=== PATIENT | male | born 1940 | race Caucasian/White ===

== ENCOUNTER 2018-08-20 20:15 | Emergency (ER) | payer MEDICARE, SELFPAY ==
[2018-08-20 20:16] VITALS: BP 160/78; PULSE 911; RESP 16; TEMP 36.7; O2SAT 95; BMI 23.8
--- NOTE | 2018-08-20 20:25 | RAD_ITS ---
STUDY: X-RAY CHEST REASON FOR EXAM: Male, 78 years old. Chest pain. TECHNIQUE: Portable chest. COMPARISON: 03/08/2014. FINDINGS: The lungs are clear and expanded. There is no demonstrated pleural abnormality. Normal size heart. Normal mediastinum and brown. Normal visualized pulmonary arteries. Normal visualized aortic arch and descending thoracic aorta. Reverse right shoulder arthroplasty. Degenerative thoracic spondylosis. Bony structures are otherwise unremarkable. RAD/Chest 1 View (Portable) IMPRESSION: No acute findings. Electronically Signed: Maria C Caro MD at 20:59 EDT Tel , Service support ,
--- NOTE | 2018-08-20 20:25 | EKG12_ITS ---
Test Reason : CP Blood Pressure : / mmHG Vent. Rate : 082 BPM Atrial Rate : 082 BPM P-R Int : 200 ms QRS Dur : 162 ms QT Int : 428 ms P-R-T Axes : 056 -56 044 degrees QTc Int : 500 ms Sinus rhythm with frequent Premature ventricular complexes Right bundle branch block Left anterior fascicular block Bifascicular block Abnormal ECG Confirmed by ZACK MCCARTY, KISHAN ([id number]), supervising editor news reel ALLYN LERMA ([id number]) on 08/24/2018 11:48:43 AM Referred By: Confirmed By:WILDER DIXON MD
--- NOTE | 2018-08-20 20:29 | ED.VISSUMM ---
- ER Visit Summary Date of Service: 08/20/18 Chief Complaint: Chest pain, shortness of breath History of Present Illness: The patient is a 78 M presents to the emergency department chest pain shortness of breath. Patient has a history of aortic valve regurgitation. He did follow with Dr. Faustin, but since his [place] [facility] he has an appointment with a new dot compliance coordinator. He states for the past few months, his dyspnea is been getting worse. He states is been worse on exertion. He denies orthopnea. He denies weight gain. He denies any leg swelling. He states that for the past 24 hours, he had some left-sided chest heaviness. It does not come and go. It does not radiate. He was concerned because he is never really had pain like this before. He had called his dot compliance coordinator about his dyspnea on a had moved up his echo, but with his pain he was referred into the emergency department. Physical Examination: Vital signs reviewed General: Well-nourished, well-developed Head: Normocephalic, atraumatic Eyes: Pupils equal and reactive, extraocular muscles intact Neck, supple, no lymphadenopathy Heart: Regular rate and rhythm Respiratory: No distress, clear bilaterally Abdomen: Soft, nontender, nondistended, no peritoneal signs Back: Nontender Extremities: Nontender, no edema, no cords Skin: Normal color no rash Neuro: Alert and oriented, no focal or lateralizing deficits Test Results: [] Emergency Department Course and Treatment: EKG was obtained on patient arrival. He does have a bifascicular block. It was changed from 2014. He has had constant pain for the past 18 hours. It does not radiate. It is reproducible. Chest x-ray was unremarkable. There is no evidence of volume overload. Cardiac enzymes are normal. The patient was sitting, he stated that he just remembered that yesterday, his garage melter helper had broken. He had left and lower the heavy wooden door by hand. He thinks that this may be muscular. I was able to obtain a recent EKG from the [facility] system. His bifascicular block is unchanged. The patient has no history of coronary vascular disease. He does have valvular disease which I do feel likely causes his dyspnea but this is been going on for the past 6 months. The patient wants to attempt outpatient therapy. I feel that this is reasonable. He has reproducible chest pain, and unchanged EKG, constant pain with a negative cardiac enzyme, no history of coronary vascular disease. He is also had a recent negative stress test. Patient was counseled concerning symptoms and reasons to return. He will be discharged home. Treatment Plan: [] Disposition: Discharge Impression: 1. Chest pain This note was generated with [employer] dictation software. It may contain incorrect words, spelling, and punctuation that were not noted in review of the chart prior to signing ED Disposition - Plan for ED Patient: Instructions: CHEST PAIN, Uncertain Cause Referrals: Anthony Wakefield MD [Primary Care Provider] -
[2018-08-20 20:39] VITALS: O2SAT 95
[2018-08-20 20:50] LABS: Absolute Lymphocyte Count 1.96 X10^3/ul (0.83-4.51); Absolute Neutrophil Count 4.8 X10^3/uL (2.0-7.7); Basophil# 0.01 X10^3/uL; Basophil% 0.1 % (0-1); Eosinophil# 0.13 X10^3/uL; Eosinophils% 1.7 % (0-5); Hematocrit 40.8 % (40-54); Hemoglobin 13.7 g/dl (13.0-16.5); Lymphocyte # 1.96 X10^3/ul (4.0); Lymphocyte % 26.2 % (19-41); Mean Corp Hgb Conc 33.6 g/gl (32-36); Mean Corpuscular Hgb 31.2 pg (27.0-32.0); Mean Corpuscular Volume 92.9 fL (80-94); Mean Platelet Vol. 9.9 fl (6.2-12.0); Monocyte# 0.59 X10^3/uL; Monocyte% 7.9 % (0-10); Neutrophil # 4.78 X10^3/uL (2.7-7.7); Neutrophil % 64.1 % (47-70); Platelet Count 215 K/mm3 (150-450); RBC Distribution Width CV 13.2 % (11.6-14.6); Red Blood Count 4.39 M/mm3 (4.6-6.2); White Blood Count 7.5 K/mm3 (4.4-11.0)
[2018-08-20] MEDS: Aspirin 81 MG TAB.CHEW 324 MG PO (20:50)
[2018-08-20 20:51] LABS: POSITIVE COUNT NO; POSITIVE DIFFERENTIAL NO; POSITIVE MORPHOLOGY NO
[2018-08-20 21:15] LABS: Anion Gap 4 (5-15); BUN 16 mg/dL (7-18); BUN/Creat Ratio 20.7 RATIO (10-20); Calcium,Total 8.5 mg/dL (8.5-10.1); Chloride 108 mmol/L (98-107); Creatinine, Serum 0.77 mg/dL (0.70-1.30); EST Glomerular Filtration Rate 103 mL/min (>60); Est Glom Filt Rate - Afr Amer 125 mL/min (>60); Estimated Creatinine Clearance 66.82 ml/min; Glucose 97 mg/dL (74-106); Magnesium 2.2 mg/dL (1.6-2.6); Potassium 3.7 mmol/L (3.5-5.1); Sodium Level 138 mmol/L (136-145)
[2018-08-20 21:31] VITALS: BP 153/69; PULSE 84; RESP 21; O2SAT 93
== END 2018-08-20 21:44 | disposition home or self-care (01) ==
LOC: ED 20:55
PROVIDERS: Emergency Provider Emergency Medicine; Family Provider Family Medicine; PCP Family Medicine
DX: R07.89 Other chest pain (principal); I10 Essential (primary) hypertension; E78.00 Pure hypercholesterolemia, unspecified; Z79.899 Other long term (current) drug therapy
CPT/HCPCS: 71045; 80048; 83735; 84484; 85025; 93005; 99285; A4216

== ENCOUNTER → 2019-03-04 07:59 | Outpatient (CLI) | payer MEDICARE, SELFPAY ==
--- NOTE | 2019-03-04 08:28 | PCM.CR.HP2 ---
CR - History & Physical - General Arrival date:: 03/04/19 Arrival time:: 08:00 Date of Referral:: 02/09/19 Date of CR Evaluation:: 03/04/19 Referring Physician: DR. JOSE GARCIA ([facility]) Primary Diagnosis: VALVE REPAIR/REPLACEMENT - History of Present Cardiac Event Onset Date: Enter Onset Date of cardiac illnesses in Comment field below Heart valve replacement or repair:: Yes - aortic valve replacement, mitral valve repair, ascending aorta repair 01/13 Type of Symptoms:: shortness of breath adn had been seeing Dr. Rico over period of past year and half related to his accelerated heart rate. Assigned to Dr. Garcia at the [facility] and had diagnostic tests done to monitor his insufficiency of valves. Planned surgery at the [facility]. Interventions with present event:: Planned surgery at the [facility]. Were there any complications?: Fluid on pericardiam monitoring with echo, accelerated HR - Medications Home Medications: Ambulatory Orders Medication Instructions Recorded Ascorbic Acid [Vitamin C] 500 mg PO DAILY@0800 03/08/14 Cholecalciferol (VIT D3) [Vitamin 1,000 unit PO DAILY 03/08/14 D3] Exedrin 2 tab PO DAILY 03/08/14 Glucosam/Charlie-Msm1/C/Endy/Bosw 1 each PO DAILY 03/08/14 [Osteo Bi-Flex Caplet] Losartan Potassium [Cozaar] 50 mg PO DAILY 03/08/14 Atorvastatin Calcium 10 mg PO DAILY 08/20/18 Folic Acid 400 mcg PO DAILY 08/20/18 Hydroxyzine HCl 25 mg PO TID PRN PRN 08/20/18 Tamsulosin HCl 0.4 mg PO QHS 08/20/18 - Allergies Allergies/Adverse Reactions: Allergies oxycodone Adverse Reaction (Verified 08/20/18 20:19) Nausea - Sleep Disorder Evaluation Hx of Sleep Apnea: No Do you snore loudly (louder than talking or can be heard through closed doors)?: No Do you often feel tired/ fatigued/ sleepy during daytime?: No Has anyone observed you stop breathing during sleep?: No History of Hypertension (for STOP score): Yes STOP Results: Negative Advanced Directives - Advanced Directives Power of Advertising Agent: No Living Will: No Advance Directives Information Provided: Yes Advance Directives on File: No DNR Order?:: No - MOLST See MOLST form: No Past Medical History - Past Medical Illness Medical History: Past Medical History (Last Updated 03/04/19 @ 08:36 by Francis Garland CRT, JAYCOB, BS) Former smoker, stopped smoking many years ago Z87.891 Heart valve disease I38 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 - Past Surgical History Surgical History: Past Surgical History (Last Updated 03/04/19 @ 08:53 by Francis Garland CRT, JAYCOB, BS) H/O arthroscopic knee surgery Z98.890 H/O arthroscopic knee surgery Z98.890 H/O vasectomy Z98.52 History of right knee joint replacement Z96.651 History of right shoulder replacement Z96.611 Surgical History: no surgical history Social History - Smoking History Smoking Status: Former smoker Hx Tobacco Use: No Hx Smoking Exposure: No - Alcohol Use Alcohol Usage: No - Substance Abuse Hx Substance Use: No - Occupation Occupation (List type of work in comments):: Retired - Hobbies, Recreation, Social Activities Hobbies: Sports - golfing, Walking, Exercise Recreational Activities: I am able to engage in a few activities Social Environment - Status Marital Status: - Current Living Arrangements Living Environment:: Spouse - Children How many children do you have?: 4 - 7 grandchildren Do any of your children live nearby?: Yes - [facility] - Safety Do you feel safe in your surroundings?: Yes - Assistance Do you need any assistance at home?: none Review of Systems - Review of Systems Hints: Right click = Denies ([place]). Left click = Reports ([place]) Review of Present Symptoms: Reports: Shortness of Breath with Exertion, Operative Discomfort - some muscular discomfort related to surgery but very minimal., Dizziness/Lightheadedness - occasionally, rarely if stands up to quickly., Fatigue - not sleeping well at night so have some fatigue later int eh day., Heart Arrhythmia/Irregularities - accelerated heart rate, atrial fibrillation history was being treated by Dr. Tesfaye and Dr. Jair Rico., Appetite - Normal, Appetite - Special Diet. Denies: Shortness of Breath at Rest, Sleep - Normal, Sexual Changes - Pain Is Patient Pain Free?: Yes Pain Location: none Pain Level: 0/10 Risk Factor Assessment - Chief Complaint Chief Complaint: Patient presents to [facility] CR program today under the care of Dr. Jose Garcia of the [facility] follwoing a recent aortic valve replacement, mitral valve repair and ascending aorta repair at the [facility] [place] on 01/13/2019. He has fluid on the pericardium which is being monitored via echocardiogram and an accelerated HR being managed by medication and a planned cardioversion on 04/02/2019 - Vital Signs Temperature: 97.8 F Respiratory Rate: 14 Pulse Ox: 96 Blood Pressure: 96/48 Nailbeds:: pink - Pulse Pulse Rate: 91 - H/O irregular HR A-Fib Pulse Rhythm: Irregular - Hypertension How long have you been treated?: several years On medication(s)?: yes Blood Pressure Sitting - Left Arm: 96/48 - Stress Stress: Recent - Blood Cholesterol/Lipids Total Cholesterol (mg/dL) Goal = less than 200 mg/dL: 145 - 01/29/2019 HDL Cholesterol (mg/dL) Goal = less than 40 mg/dL: 51 LDL Cholesterol (mg/dL) Goal = less than 70 mg/dL: 79 Triglycerides (mg/dL) Goal = less than 150 mg/dL: 74 - Diabetes Nutrition Referral for Diabetes: No - Obesity Height: 5 ft 10.6 in Weight:: 163 lb Weight in Pounds: 163.0 lbs Weight Source: Estimated by Patient Body Mass Index (BMI): 23.0 Nutritional Referral for Obesity: No - Physical Inactivity Physical Inactivity: Reg Exercise 30 min/day - attended [employer] 3-days/wk, exercise 30 minutes bike at home, golf., Recreational activity - walking and range of montion exercises from discharge yoga. - Risk Stratification Risk Guidelines: Lowest Risk: Risk Factor for Smoking, Risk Factor for Dyslipidemia, Risk Factor for Diabetes, Risk Factor for Obesity, Risk Factor for Hypertension, Risk Factor for Sedentary Lifestyle - For Smoking Smoking Risk Guidelines: Smoking Low Risk: None or quit greater than 6 months ago. Smoking Moderate Risk: Smoker or quit 6 months or less ago. Smoking High Risk: Smoker - For Dyslipidemia Dyslipidemia Risk Guidelines: Low Risk: Moderate Risk: High Risk: 15-25% fat 25.1-29% fat >/= 30% fat. <7% sat fat 7-9% sat fat >9% sat fat. <150 mg chol 150-299 mg chol >/= 300 mg chol. LDL <100 LDL 100-129 LDL >/= 130. Chol/HDL ratio <5.0 Chol/HDL ratio 5.0-6.0 Chol/HDL ratio >6.0. Triglycerides <100 Triglycerides 100-149 Triglycerides >/= 150 - For Diabetes Mellitus Diabetes Risk Guidelines: Diabetes Low Risk: HgA1c <6.5% and/or FBG <120. Diabetes Moderate Risk: HgA1c 6.6-7.9% and/or FBG 120-180. Diabetes High Risk: HgA1c >/= 8% and/or FBG >180 - For Obesity/Overweight Obesity/Overweight Risk Guidelines: Obesity Low Risk: BMI <25.0. Obesity Moderate Risk: BMI 25-29.9. Obesity High Risk: BMI >/= 30.0 - For Hypertension Hypertension Risk Guidelines: Hypertension Low Risk: Systolic <120 and Diastolic <80. Hypertension Moderate Risk: Systolic 120-139 and Diastolic 80-89. Hypertension High Risk: Systolic >/= 140 and Diastolic >/= 90 - For Sedentary Lifestyle Sedentary Lifestyle Risk Guidelines: Sedentary Lifestyle Low Risk: >/= 1,500 kcal/week. Sedentary Lifestyle Moderate Risk: 700-1,499 kcal/week. Sedentary Lifestyle High Risk: < 700 kcal/week - For Depression Depression Risk Guidelines: Depression Low Risk: Not clinically depressed. Depression Moderate Risk: Mildly depressed. Depression High Risk: Clinically depressed Motivation - Motivation to Participate On a scale of 1 to 10, how prepared are you to commit to attending program?: 10 What do you see as barriers to successfully being able to complete the program?: none; make it a priority What do you see as the benefits of succesfully completing the program? In other words, what do you hope to get out of participating in the program?: better health, back to pre-surgery exercise and health condition. Are there issues you are dealing with that will interfere with completing the program?: irregular heart rate, accelerated heart rate. Do you have a spouse or signficant other, family or friends who will help support you to complete the program?: yes
[2019-03-04 08:39] VITALS: RESP 14; TEMP 36.6
--- NOTE | 2019-03-04 08:41 | PCM.CR.ITP ---
General Information - General Information Admitting Diagnosis: Aortic Valve replacement and mitral valve repair, and ascending aorta repair. - Education/Goals Barriers to Learning: Hearing Impairment, Vision Impairment Individual Counseling: Initial Assessment: Abnormal Cholesterol Levels, High Blood Pressure Cardiac Rehabilitation Goals: 1. Maintain the individual as the primary focus of care. 2. To improve the patient's quality of life. 3. Identification of cardiac risk factors and provide cardiac risk factor management. 4. Enhance the psychosocial status of the patient. 5. Reconditioning enough to allow the patient to resume customary activities. 6. Control symptoms of cardiac disease Scale for measuring improvement of personal goals: Enter appropriate number in Comments. 2 = Unchanged. 3 = Slightly Better. 4 = Moderate Improvement. 5 = Met my Goal Personal Goals: Initial Assessment: Improve management of stress and emotions, Improve energy level, Participate in home exercise program, Get back to work, or to resume activities faster, Improve muscle strength and endurance, Control risk factors (learn risk factor modification) Exercise - Initial Assessment - Visit Date of Eval: 03/04/19 - Stages of Change Stages of Change:: Action - Physician Prescribed Exercise Modalities: Treadmill, Airdyne, NuStep Frequency (days/week): 3x/week for 12 weeks [36 sessions] Intensity: 60-80% age predicted maximum heart rate reserve METs - Progression: 0.5-1.0 MET, RPE 11-14 WEEK: 3.5 Target Heart Rate:: 92-120 - Hypertension Do any of the following apply?: Yes, Medication, Diet - Intervention Home Exercise/Activity Goal:: Moderate Exercise 30 min/day x 5 days/wk - Education Goals:: Warm-up, RPE NEEMA Scale, S/S, Safe Exercise, Self-Monitoring - Exercise Program Goals Exercise Program Goals: Aerobic Activity >30 min Nutrition - Initial Assessment - Program Goals Nutrition Program Goals: LDL <70. Total Cholesterol <200. HDL >45. Triglycerides <150. HgbA1C <7%. BMI <25 - Visit Date of Assessment:: 03/04/19 - Stages of Change Stages of Change:: Action - Lipids Total Cholesterol (mg/dL) Goal = less than 200 mg/dL: 145 - 01/29/2019 HDL Cholesterol (mg/dL) Goal = less than 45 mg/dL: 51 LDL Cholesterol (mg/dL) Goal = less than 70 mg/dL: 79 Triglycerides (mg/dL) Goal = less than 150 mg/dL: 74 - Weight Management Height: 5 ft 10.6 in Weight:: 163 lb - Intervention Referral to dietitian:: No Referral to Diabetic Clinic:: No Will attend diet classes:: Yes - Education Gave educational materials for:: Healthy eating Tobacco - Initial Assessment - Program Goals Tobacco Program Goals: Complete smoking cessation. Attend education classes. Improve Knowledge Test score - Stage of Change Stages of Change:: Action - Learning Barriers Learning Barriers: Hearing, Vision, Ready to Learn - Family Support Do you have family support?: Yes - Tobacco Use Tobacco Use: Non-smoker - former smoker quit many years ago. Do you use smokeless tobacco?: No - Intervention Smoking Cessation Referral:: No Individual Education/Counseling:: No Education Schedule Given:: Yes - Education Attended class for:: Treating Heart Disease, How The Heart Works, What it means to have Heart Disease, How Coronary Artery Disease is Diagnosed, Heart Procedures, What Heart Medications Do, Risk Factors & Modifications, Living an Active Life, Nutrition, Emotions & Heart Disease, Stress Management & Relaxation, Sleep Disorders & Heart Disease Psychosocial - Initial Assess - Target Goals Target Goals: Assess presence or absence of depression. Using a valid screening tool, maximizes coping skills. Positive support system - Stages of Change Stages of Change:: Action - Psychosocial Test Tool Used:: HANDS Depression Questionnaire - Intervention PS - Interventions: Yes Attend Stress Management Classes, No Referral to Mental Health, No Referral to [facility] Case Management, No Referral to Physician, No Uses Stress Management Skills - Education Gave educational materials for:: Coping techniques, Signs & symptoms of depression, Stress management, Relaxation techniques - Patient/Program Goal Preventative Medication(s):: Aspirin, ALICE inhibitor, Clopidogrel, Beta prudencio, Statin/lipid - Assistive Devices Assistive Devices:: None Fall Risk Assessed:: Yes Patient Health Questionnaire 30-Day Re-eval Assessment 1. Little interest or pleasure in doing things: Not at all 2. Feeling down, depressed, or hopeless: Not at all 3. Trouble falling or staying asleep, or sleeping too much: Nearly every day 4. Feeling tired or having little energy: More than half the days 5. Poor appetite or overeating: Not at all 6. Feeling bad about yourself -- or that you are a failure or have let yourself or your family down: Not at all 7. Trouble concentrating on things, such as reading the newspaper or watching television: Not at all 8. Moving or speaking so slowly that other people could have noticed. Or the opposite - being so fidgety or restless that you have been moving around a lot more than usual: Not at all 9. Thoughts that you would be better off , or of hurting yourself in some way: Not at all Total Score: 5 SITA-Q SV Test - Statements CAD is a disease of the arteries in the heart: False Examples of risk factors for heart disease: True Angina is chest pain or discomfort: I Don't Know The benefits of resistance training include: True Eating more meat and dairy products: False Anti-platelet medications such as aspirin are important: I Don't Know The only effective way to manage stress: False An exercise warm-up slowly increases heart rate: I Don't Know Prepared, processed foods usually have high sodium: True Depression is common after a heart attack: True The statin medications lower cholesterol: True To control blood pressure, lower the amount of sodium: True If someone gets chest discomfort during walking: False Transfats are partially hydrogenated vegetable oils: I Don't Know Sleep apnea that is not treated increases the risk: I Don't Know To control cholesterol, one should become a vegetarian: False Someone knows if he/she is exercising at the right level: True Diabetes cannot be prevented with exercise & health eating: I Don't Know Stress is a large risk for heart attack: True A diet that can help lower blood pressure is rich in: True - Total Score Total Correct Responses: 14 Self-Efficacy 30-Day Re-eval Assessment We would like to know how confident you are in doing certain activities. Please select your confidence level for:: Select your confidence level for the following using the scale 1-10 where 1 is not at all confident and 10 is totally confident. Your score is the average of all 6 responses. Fatigue: How confident are you that you can keep the fatigue caused by your disease from interfering with the things you want to do? Select Number: 1 Physical Discomfort or Pain: How confident are you that you can keep the physical discomfort or pain of your disease from interfering with the things you want to do? Select Number: 7 Emotional Distress: How confident are you that you can keep the emotional distress caused by your disease from interfering with the things you want to do? Select Number: 3 Other Symptoms or Health Problems: How confident are you that you can keep other symptoms or health problems from interfering with the things you want to do? Select Number: 9 Different Tasks and Activities: How confident are you that you can do the different tasks and activities needed to manage your health condition so as to reduce your need to see a doctor? Select Number: 9 Medication: How confident are you that you can do things other than just taking medication to reduce how much your illness affects your everyday life? Select Number: 9 Total Score:: 6 Nutrition Survey - Nutrition Survey Instructions Scoring Instructions: Scoring is as follows: Yes = 1 points. No = 0 point. Patient score that is >/=12 is considered to be at potential nutritional risk and could benefit from a referral to a registered dietitian. - Nutrition Survey Initial Have you lost >10 lbs over the past 2 months without trying?: No Are you following a special diet at home for diabetes, low fat, or low salt?: Yes Are you interested in meeting with a dietitian for help understanding your diet?: No Do you eat less than 3 meals a day?: No Do you eat fatty meats (chris, sausage, ribs, etc), fried foods, desserts, large amounts of salad dressings, margarine, butter, or cheese most days?: No Do you have food allergies? [Enter types in comment field]: No Do you eat in restaurants more than 3 times a week?: No Do you season food with salt, seasoning salt, or garlic salt?: Yes Do you used canned, boxed, frozen meals, or soups, seasoning packets?: Yes Total Score:: 3
[2019-03-04 09:03] VITALS: BP 96/48; PULSE 91; O2SAT 96
[2019-03-04 09:08] VITALS: BP 96/48; BMI 23.0
== END ==
PROVIDERS: Family Provider Family Medicine; PCP Family Medicine
DX: Z95.2 Presence of prosthetic heart valve (principal)

== ENCOUNTER → 2019-03-04 10:22 | Outpatient (CLI) | payer MEDICARE, SELFPAY ==
[2019-03-04 09:08] VITALS: BMI 23.0
[2019-03-04 10:37] LABS: International Normalized Ratio 1.4; Prothrombin Time (Protime)PT. 17.1 SECONDS (11.7-14.9)
== END ==
PROVIDERS: Family Provider Family Medicine; PCP Family Medicine; Referring Provider Family Medicine; Visit Provider Family Medicine
DX: I48.0 Paroxysmal atrial fibrillation (principal)
CPT/HCPCS: 85610

== ENCOUNTER 2019-03-31 13:00 | Outpatient (RCR) | payer MEDICARE, SELFPAY ==
[2019-03-04 09:08] VITALS: BMI 23.0
== END 2019-04-02 23:59 ==
LOC: CR 13:00
PROVIDERS: Family Provider Family Medicine; PCP Family Medicine
DX: Z98.890 Other specified postprocedural states (principal); Z86.79 Personal history of other diseases of the circulatory system
CPT/HCPCS: 93798

== ENCOUNTER 2019-04-30 13:00 | Outpatient (RCR) | payer MEDICARE, SELFPAY ==
[2019-03-04 09:08] VITALS: BMI 23.0
--- NOTE | 2019-04-06 06:49 | PCM.CR.ITP ---
Diagnosis - Education/Goals Cardiac Rehabilitation Goals: 1. Maintain the individual as the primary focus of care. 2. To improve the patient's quality of life. 3. Identification of cardiac risk factors and provide cardiac risk factor management. 4. Enhance the psychosocial status of the patient. 5. Reconditioning enough to allow the patient to resume customary activities. 6. Control symptoms of cardiac disease Scale for measuring improvement of personal goals: Enter appropriate number in Comments. 2 = Unchanged. 3 = Slightly Better. 4 = Moderate Improvement. 5 = Met my Goal - Diagnosis & Disease Process Outcomes/Goals: Pt IDs own risk factors & lifestyle modifications by Session 10, Verbalizes symptoms of angina & response by session 3., Pt independently manages Plan/Interventions: Assist Pt to ID & engage in lifestyle modification to reduce CVD risk, Instruct on individual risk factors, Review symptoms of angina & emergency actions, Review secondary diagnosis & identify educational needs. 30 day Reassessments:: Progressing - Safety Referral to Physical Therapy: No Referral to [facility] Case Management: No Fall Risk Assessed:: Yes Assistive Devices:: None Exercise - 30-day Assessment - Visit Date of Eval: 04/06/19 Session #:: 12 - RECENT CARDIOVERSION 04/02/2019 - Physician Prescribed Exercise Modalities: Treadmill, Rower, Airdyne, NuStep Frequency: 3x/week for 12 weeks [36 sessions] Intensity: 60-80% of age predicted maximum heart rate reserve Current METSs:: 4.7 Target Heart Rate:: 92-120 Current RPE:: 12-13 Maximum Excercise HR:: 87 Resting Blood Pressure: 102/60 Maximum Exercise Blood Pressure: 124/52 EKG Type: SR w/RBBB with rare PVC noted Current Physical Activity or Exercising minutes: 30 MINUTES TWICE DAILY, SITTING < 3 HOURS - Outcomes & Goals Goals:: Verbalizes understanding of THR, RPE & goal METS by session 6, Documents in home exercise log/reports 30 min aerobic 5 day/wk by DC, Demonstrates accurate pulse taking by DC - Intervention & Plan Exercise Program Goals: Instruct on personal THR & RPE, Instruct on MET level & personal MET goal, Show patient to take own pulse /validate performance until accurate, Instruct on home exercise - 30-day Reassessments 30 day Reassessments:: Progressing - Physical Activity Home Exercise Physical Activity - Home Exercise: Safe Exercise, Warm-up, Self-monitoring, Cool-Down, Home Exercise > 30 min Daily, Sitting Time <3 hours/daily - Outcomes & Goals Outcomes/Goals: Demonstrates correct Warm-up/exercise Cool-Down (S3) if = 2.5 METs, Verbalizes symptoms of exercise intolerance by Session 3 (S3), Demonstrate safe equipment use (S3) & follows exercise prescrition (6) - Intervention & Plan Plan/Intervention: Instruct warm-up & cool-down if exercising at > 2 METs, Instruct on symptoms of exercise intolerance & actions to take, Instruct & monitor on saf, Assess intial functional capacity & safety risk - 30-day Reassessments 30 day Reassessments:: Progressing Nutrition - 30-Day Assessment - Program Goals Nutrition Program Goals: LDL <100 optimal. 100 - 129 Near optimal. 130 - 159 Borderline High. 160 - 189 High. Total Cholesterol <200 desirable. 200 - 239 Borderline High. >/= 240 High. HDL < 40 Low >/=60 High. Triglycerides <150 desirable. <199 optimal. VlDL 5 - 40. HgbA1C <7%. BMI <25 Patient has diagnosis of Hyperlipidemia (ICD E78)?: Yes - Visit Date of Assessment:: 04/06/19 Session #:: 12 - Cholesterol/Lipids Triglycerides (mg/dL): 74 Total Cholesterol (mg/dL): 145 LDL Cholesterol (mg/dL): 79 HDL Cholesterol (mg/dL): 51 Determine presence & major risk factors that modify LDL goal: Hypertension or hypertensive medication, Age men > 45 years; women >/= 55 years Outcomes/Goals: Pt IDs own risk factors & lifestyle modifications by Session 10, Verbalizes symptoms of angina & response by session 3., Pt independently manages Intervention/Plan: Instruct on personal lipid levels & lipid goals/NCEP guidelines, Instruct on cholesterol - Diabetes (Other Core Measures) Diabetes Type: Not Applicable Insulin dependent injection/pump?: No Non-Insulin Dependent?: No Do you monitor your blood sugar at home?: No Referral to Diabetic Clinic:: No - Weight Mgt (Other Care) Height: 5 ft 10.6 in Weight:: 165 lb BMI: 23.3 Diagnosis Overweight/Obesity BMI> 30% ICD-10 E66: No Diagnosis High BMI/Morbid Obesity BMI> 35% ICD-10 Z68: No Outcomes/Goals: Pt sets, maintains & shows weight loss goal & trend during rehab Intervention/Plan: Instruct on ideal BMI & set weight loss goal w/patient, Assist pt to ID & incorporate diet changes for weight loss by S9 30 day Reassessments:: Progressing - Healthy Eating Habits Will attend diet classes:: Yes Outcomes/Goals:: Consume diet rich in vegs,fruits,whole grain/high fiber,fish,lean meat, Limit sat/trans fats,cholesterol & added salts & sugars Intervention/Plan:: Assess current eating habits 30-day Reassessments:: Progressing - Education Gave educational materials for:: Healthy eating Medical- 30-Day Assessment - Visit Date of Eval: 04/06/19 Session #:: 12 - Medication Compliance Preventative Medication(s):: Aspirin, Clopidogrel/P2Y12 inhibit, Statin/lipid, Beta prudencio, Warfarin/Coumadin H/O mental health issues: depression, anxiety, or addiction?: No Doesn?t believe in the benefits of treatment?: No Believes medications are unnecessary or harmful?: No Has a concern about medication side effects?: No Expresses concern over the cost of medications?: No Outcomes/Goals: Verbalizes medications,desired effect & common side effects @ DC, Pt self-reports following medication regimen, Keeps card in wallet w/medications listed by DC Interventions/plans: Instruct on medication effects & side effects, Review medication list w/patient every two weeks, Instruct importance of taking meds as ordered & assist problem solving 30-day Reassessments:: Progressing - Tobacco Use Tobacco Use: Non-smoker Do you use smokeless tobacco?: No - Hypertension Hypertension Diagnosis:: Hypertension ICD-10 I10 Resting Blood Pressure:: 102/60 [place] [employer] Hypertension Guidelines: [place] [employer] Hypertension Guidelines. Normal BP Less than 120/80. Elevated BP 120/80. Hypertension Stage 1: BP 130-139/80-89. Hypertesnion Stage 2: BP 140 or higher/90 or higher. Hypertension Crisis: BP higher than 180/120 Peak Exercise Blood Pressure:: 124/52 Outcomes/Goals: Able to verbalize/achieve optimal blood pressure <130/80, Incorporates diet changes & exercise for blood pressure control by DC Interventions/plan: Instruct on optimal blood pressure, hypertension & medications, Instruct on effects of sodium, alcohol, stress, exercise &hypertension 30 day Reassessments:: Progressing - Tobacco Cessation Referral Smoking Cessation Referral:: No Individual Education/Counseling:: No Education Schedule Given:: Yes Psychosocial - 30-Day Assess - VIsit Date of Eval: 04/06/19 Session #:: 12 Not Applicable: No History of previous Mental disease:: No - Target Goals Target Goals: Assess presence or absence of depression. Using a valid screening tool, maximizes coping skills. Positive support system - Psychosocial Test Tool Used:: Neli Grey QOL Cardiac, PHQ-9 Questionnaire phq-9 Severity: Severity. 1-4 Minimal Depression. 5-9 Mild Depression. 10-14 Moderate Depression. 15-19 Moderately Sever Depression. 20-27 Severe Depression. Rule: Total Score:: 3 - MINIMAL DEPRESSION - Referral to Behavioral Health PS - Interventions: Yes Attend Stress Management Classes, No Referral to Behavioral Health if PHQ-9 score >9:, No Referral to [facility], No Referral to Physician if PHQ-9 if score is 5-9: - Outcomes/Goals: See list Psychosocial Outcomes/Goals:: ID's personal stressors & 2 strategies to manage stress by discharge - Intervention/Plan: See List Interventions/Plan:: Assess stressors,coping strategies & signs of derpression on admission, Instruct/assist pt to develop coping & personal stress Mgt strategies, Instruct patient to recognize signs & symptoms of depression, Instruct patient to recog - 30-day Reassessments: 30 day Reassessments:: Progressing Patient Health Questionnaire 30-Day Re-eval Assessment 1. Little interest or pleasure in doing things: Not at all 2. Feeling down, depressed, or hopeless: Not at all 3. Trouble falling or staying asleep, or sleeping too much: More than half the days 4. Feeling tired or having little energy: Several days 5. Poor appetite or overeating: Not at all 6. Feeling bad about yourself -- or that you are a failure or have let yourself or your family down: Not at all 7. Trouble concentrating on things, such as reading the newspaper or watching television: Not at all 8. Moving or speaking so slowly that other people could have noticed. Or the opposite - being so fidgety or restless that you have been moving around a lot more than usual: Not at all 9. Thoughts that you would be better off , or of hurting yourself in some way: Not at all Total Score: 3 Self-Efficacy 30-Day Re-eval Assessment We would like to know how confident you are in doing certain activities. Please select your confidence level for:: Select your confidence level for the following using the scale 1-10 where 1 is not at all confident and 10 is totally confident. Your score is the average of all 6 responses. Fatigue: How confident are you that you can keep the fatigue caused by your disease from interfering with the things you want to do? Select Number: 3 Physical Discomfort or Pain: How confident are you that you can keep the physical discomfort or pain of your disease from interfering with the things you want to do? Select Number: 7 Emotional Distress: How confident are you that you can keep the emotional distress caused by your disease from interfering with the things you want to do? Select Number: 4 Other Symptoms or Health Problems: How confident are you that you can keep other symptoms or health problems from interfering with the things you want to do? Select Number: 9 Different Tasks and Activities: How confident are you that you can do the different tasks and activities needed to manage your health condition so as to reduce your need to see a doctor? Select Number: 9 Medication: How confident are you that you can do things other than just taking medication to reduce how much your illness affects your everyday life? Select Number: 10 Total Score:: 7
[2019-04-06 06:57] VITALS: BP 102/60; BP 124/52; BMI 23.3
== END 2019-05-01 23:59 ==
LOC: CR 13:00
PROVIDERS: Family Provider Family Medicine; PCP Family Medicine
DX: Z98.890 Other specified postprocedural states (principal); Z86.79 Personal history of other diseases of the circulatory system
CPT/HCPCS: 93798

== ENCOUNTER 2019-05-14 13:00 | Outpatient (RCR) | payer MEDICARE, SELFPAY ==
[2019-03-04 09:08] VITALS: BMI 23.0
[2019-04-06 06:57] VITALS: BMI 23.3
[2019-05-02 00:45] VITALS: BP 102/60; BP 124/52
--- NOTE | 2019-05-03 12:47 | PCM.CR.ITP ---
Diagnosis - General Information Admitting Diagnosis: S/P AORTIC VALVE REPLACEMENT Personal Learning Style:: Audio/Visual, Written Barriers to Learning: Hearing Impairment, Vision Impairment Stage of change r/t lifestyle modifications:: Action Gave educational material for:: Treating Heart Disease, Emotions & Heart Disease, Stress Management & Relaxation, Sleep Disorders & Heart Disease, How The Heart Works, What it means to have Heart Disease, How Coronary Artery Disease is Diagnosed, Heart Procedures, What Heart Medications Do, Risk Factors & Modifications, Living an Active Life, Nutrition - Education/Goals Individual Counseling: Initial Assessment: Abnormal Cholesterol Levels, High Blood Pressure Cardiac Rehabilitation Goals: 1. Maintain the individual as the primary focus of care. 2. To improve the patient's quality of life. 3. Identification of cardiac risk factors and provide cardiac risk factor management. 4. Enhance the psychosocial status of the patient. 5. Reconditioning enough to allow the patient to resume customary activities. 6. Control symptoms of cardiac disease Personal Goals: Initial Assessment: Improve energy level - 4, Improve muscle strength and endurance - 4, Control risk factors (learn risk factor modification) - 4 Scale for measuring improvement of personal goals: Enter appropriate number in Comments. 2 = Unchanged. 3 = Slightly Better. 4 = Moderate Improvement. 5 = Met my Goal - Diagnosis & Disease Process Outcomes/Goals: Pt IDs own risk factors & lifestyle modifications by Session 10, Verbalizes symptoms of angina & response by session 3., Pt independently manages Plan/Interventions: Assist Pt to ID & engage in lifestyle modification to reduce CVD risk, Instruct on individual risk factors, Review symptoms of angina & emergency actions, Review secondary diagnosis & identify educational needs. 30 day Reassessments:: Progressing 30 day Reassessments:: Progressing - Safety Referral to Physical Therapy: No Referral to [facility] Case Management: No Fall Risk Assessed:: Yes Assistive Devices:: None Exercise - 60-day Assessment - Visit Date of Eval: 05/03/19 Session #:: 24 - Physician Prescribed Exercise Modalities: Treadmill, Airdyne, NuStep, SciFit Frequency: 3x/week for 12 weeks [36 sessions] Intensity: 60-80% of age predicted maximum heart rate reserve Current METSs:: 4.7 Target Heart Rate:: 92-120 Current RPE:: 12-13 Maximum Excercise HR:: 91 Resting Blood Pressure: 100/48 Maximum Exercise Blood Pressure: 124/68 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 - Outcomes & Goals Goals:: Verbalizes understanding of THR, RPE & goal METS by session 6, Documents in home exercise log/reports 30 min aerobic 5 day/wk by DC, Demonstrates accurate pulse taking by DC - Intervention & Plan Exercise Program Goals: Instruct on personal THR & RPE, Instruct on MET level & personal MET goal, Show patient to take own pulse /validate performance until accurate, Instruct on home exercise - 30-day Reassessments 30 day Reassessments:: Progressing - Physical Activity Home Exercise Physical Activity - Home Exercise: Safe Exercise, Warm-up, Self-monitoring, Cool-Down, Home Exercise > 30 min Daily, Sitting Time <3 hours/daily - Outcomes & Goals Outcomes/Goals: Demonstrates correct Warm-up/exercise Cool-Down (S3) if = 2.5 METs, Verbalizes symptoms of exercise intolerance by Session 3 (S3), Demonstrate safe equipment use (S3) & follows exercise prescrition (6) - Intervention & Plan Plan/Intervention: Instruct warm-up & cool-down if exercising at > 2 METs, Instruct on symptoms of exercise intolerance & actions to take, Instruct & monitor on saf, Assess intial functional capacity & safety risk - 30-day Reassessments 30 day Reassessments:: Progressing Nutrition - 60-Day Assessment - Program Goals Nutrition Program Goals: LDL <100 optimal. 100 - 129 Near optimal. 130 - 159 Borderline High. 160 - 189 High. Total Cholesterol <200 desirable. 200 - 239 Borderline High. >/= 240 High. HDL < 40 Low >/=60 High. Triglycerides <150 desirable. <199 optimal. VlDL 5 - 40. HgbA1C <7%. BMI <25 Patient has diagnosis of Hyperlipidemia (ICD E78)?: Yes - Visit Date of Assessment:: 05/03/19 Session #:: 24 - - Cholesterol/Lipids Triglycerides (mg/dL): 0 - NO RECENT LABS Determine presence & major risk factors that modify LDL goal: Family history of premature CHD in Male < 55 years: female <65 yearsFa, Age men > 45 years; women >/= 55 years Outcomes/Goals: Pt IDs own risk factors & lifestyle modifications by Session 10, Verbalizes symptoms of angina & response by session 3., Pt independently manages Intervention/Plan: Instruct on personal lipid levels & lipid goals/NCEP guidelines, Instruct on cholesterol Referral to dietitian:: No 30-day Reassessments:: Progressing - Diabetes (Other Core Measures) Diabetes Type: Not Applicable - Weight Mgt (Other Care) Not Applicable: Yes Height: 5 ft 10.6 in Weight:: 161 lb 8 oz BMI: 22.8 Diagnosis Overweight/Obesity BMI> 30% ICD-10 E66: No Diagnosis High BMI/Morbid Obesity BMI> 35% ICD-10 Z68: No Outcomes/Goals: Pt sets, maintains & shows weight loss goal & trend during rehab Intervention/Plan: Instruct on ideal BMI & set weight loss goal w/patient, Assist pt to ID & incorporate diet changes for weight loss by S9 30 day Reassessments:: Progressing - Healthy Eating Habits Will attend diet classes:: Yes Outcomes/Goals:: Consume diet rich in vegs,fruits,whole grain/high fiber,fish,lean meat, Limit sat/trans fats,cholesterol & added salts & sugars Intervention/Plan:: Assess current eating habits 30-day Reassessments:: Progressing - Education Gave educational materials for:: Healthy eating Medical- 60-Day Assessment - Visit Date of Eval: 05/03/19 Session #:: 24 - Medication Compliance Preventative Medication(s):: Aspirin, ALICE inhibitor, Statin/lipid, Beta prudencio, Warfarin/Coumadin H/O mental health issues: depression, anxiety, or addiction?: No Doesn?t believe in the benefits of treatment?: No Believes medications are unnecessary or harmful?: No Has a concern about medication side effects?: No Expresses concern over the cost of medications?: No Outcomes/Goals: Verbalizes medications,desired effect & common side effects @ DC, Pt self-reports following medication regimen, Keeps card in wallet w/medications listed by DC Interventions/plans: Instruct on medication effects & side effects, Review medication list w/patient every two weeks, Instruct importance of taking meds as ordered & assist problem solving 30-day Reassessments:: Progressing - Tobacco Use Tobacco Use: Non-smoker - Hypertension Hypertension Diagnosis:: Hypertension ICD-10 I10 Resting Blood Pressure:: 100/48 [place] [employer] Hypertension Guidelines: [place] [employer] Hypertension Guidelines. Normal BP Less than 120/80. Elevated BP 120/80. Hypertension Stage 1: BP 130-139/80-89. Hypertesnion Stage 2: BP 140 or higher/90 or higher. Hypertension Crisis: BP higher than 180/120 Peak Exercise Blood Pressure:: 124/50 Outcomes/Goals: Able to verbalize/achieve optimal blood pressure <130/80, Incorporates diet changes & exercise for blood pressure control by DC Interventions/plan: Instruct on optimal blood pressure, hypertension & medications, Instruct on effects of sodium, alcohol, stress, exercise &hypertension 30 day Reassessments:: Progressing - Tobacco Cessation Referral Smoking Cessation Referral:: No Education Schedule Given:: Yes Psychosocial - 60-Day Assess - VIsit Date of Eval: 05/03/19 Session #:: 24 Not Applicable: Yes - Target Goals Target Goals: Assess presence or absence of depression. Using a valid screening tool, maximizes coping skills. Positive support system - Psychosocial Test Tool Used:: Neli Grey QOL Cardiac, PHQ-9 Questionnaire phq-9 Severity: Severity. 1-4 Minimal Depression. 5-9 Mild Depression. 10-14 Moderate Depression. 15-19 Moderately Sever Depression. 20-27 Severe Depression. Rule: - Referral to Behavioral Health PS - Interventions: Yes Attend Stress Management Classes, No Referral to Behavioral Health if PHQ-9 score >9:, No Referral to [facility], No Referral to Physician if PHQ-9 if score is 5-9: - Outcomes/Goals: See list Psychosocial Outcomes/Goals:: ID's personal stressors & 2 strategies to manage stress by discharge - Intervention/Plan: See List Interventions/Plan:: Assess stressors,coping strategies & signs of derpression on admission, Instruct/assist pt to develop coping & personal stress Mgt strategies, Instruct patient to recognize signs & symptoms of depression, Instruct patient to recog - 30-day Reassessments: 30 day Reassessments:: Progressing Patient Health Questionnaire 60-Day Re-eval Assessment 1. Little interest or pleasure in doing things: Not at all 2. Feeling down, depressed, or hopeless: Not at all 3. Trouble falling or staying asleep, or sleeping too much: Several days 4. Feeling tired or having little energy: Not at all 5. Poor appetite or overeating: Not at all 6. Feeling bad about yourself -- or that you are a failure or have let yourself or your family down: Not at all 7. Trouble concentrating on things, such as reading the newspaper or watching television: Not at all 8. Moving or speaking so slowly that other people could have noticed. Or the opposite - being so fidgety or restless that you have been moving around a lot more than usual: Not at all 9. Thoughts that you would be better off , or of hurting yourself in some way: Not at all How difficult have these problems made it for you to do your work, take care of things at home, or get along with other people?: Not difficult at all Total Score: 1 Self-Efficacy 60-Day Re-eval Assessment We would like to know how confident you are in doing certain activities. Please select your confidence level for:: Select your confidence level for the following using the scale 1-10 where 1 is not at all confident and 10 is totally confident. Your score is the average of all 6 responses. Fatigue: How confident are you that you can keep the fatigue caused by your disease from interfering with the things you want to do? Select Number: 6 Physical Discomfort or Pain: How confident are you that you can keep the physical discomfort or pain of your disease from interfering with the things you want to do? Select Number: 8 Emotional Distress: How confident are you that you can keep the emotional distress caused by your disease from interfering with the things you want to do? Select Number: 7 Other Symptoms or Health Problems: How confident are you that you can keep other symptoms or health problems from interfering with the things you want to do? Select Number: 9 Different Tasks and Activities: How confident are you that you can do the different tasks and activities needed to manage your health condition so as to reduce your need to see a doctor? Select Number: 9 Medication: How confident are you that you can do things other than just taking medication to reduce how much your illness affects your everyday life? Select Number: 10 Total Score:: 8
[2019-05-03 12:55] VITALS: BP 100/48; BP 124/50; BMI 22.8
== END 2019-06-01 23:59 ==
LOC: CR 13:00
PROVIDERS: Family Provider Family Medicine; PCP Family Medicine
DX: Z86.79 Personal history of other diseases of the circulatory system (principal); Z98.890 Other specified postprocedural states
CPT/HCPCS: 93798

== ENCOUNTER → 2019-08-06 | Outpatient (CLI) | payer MEDICARE, SELFPAY ==
[2019-03-04 09:08] VITALS: BMI 23.0
[2019-05-03 12:55] VITALS: BMI 22.8
[2019-08-06 09:55] LABS: AST(SGOT) 63 U/L (15-37); Alanine Aminotransfer ALT/SGPT 99 U/L (16-61); Alkaline Phosphatase 226 U/L (45-117); Bilirubin, Direct 0.19 mg/dL (0.00-0.30); Cholesterol 112 mg/dL (200); Globulin 4.4 g/dL (2.2-4.2); High Density Lipoprotein 40 mg/dL; Protein, Total 7.4 g/dL (6.4-8.2); Triglycerides 89 mg/dL; Very Low Density Lipoprotein 18 mg/dL (5-40)
== END | disposition home or self-care (01) ==
LOC: LAB 08:14
PROVIDERS: PCP Family Medicine; Referring Provider Internal Medicine Cardiovascular Disease; Visit Provider Internal Medicine Cardiovascular Disease
DX: E78.5 Hyperlipidemia, unspecified (principal)
CPT/HCPCS: 36415; 80061; 80076

== ENCOUNTER → 2019-08-25 | Outpatient (CLI) | payer MEDICARE, SELFPAY ==
[2019-03-04 09:08] VITALS: BMI 23.0
[2019-05-03 12:55] VITALS: BMI 22.8
--- NOTE | 2019-08-25 08:55 | ECHOD_ITS ---
Reason For Study: Pericardial Effusion Procedure This was a 2D Doppler, Color Flow transthoracic echocardiogram. Exam performed in department. Left Ventricle Normal size and thickness. The estimated ejection fraction is 65 %. Septal motion consistent with IVCD. No regional wall motion abnormalities noted. Right Ventricle Moderately dilated right ventricle. Normal systolic function. Atria Normal left atrium. Normal right atrium. Normal atrial septum. Mitral Valve Rheumatic appearing mitral valve. Mitral valve doming/Hockey Sticking. Mild mitral valve stenosis. Peak transmitral valve gradient 9 mmHg. Mean transmitral valve gradient 4 mmHg. Trivial mitral valve insufficiency. Tricuspid Valve Normal tricuspid valve. Trivial tricuspid valve insufficiency. Right ventricular systolic pressure estimated to be 19 mmHg. Aortic Valve Trisinus/trileaflet aortic valve. Moderate diffuse aortic valve thickening. Mild restriction of the aortic valve. Mild aortic stenosis. Peak aortic valve gradient 18 mmHg. Mean aortic valve gradient 9 mmHg. Mild (1+) aortic valve insufficiency. Pulmonic Valve Normal pulmonic valve. Trivial pulmonic valve insufficiency. Great Vessels Normal aortic root. Normal arch. Normal inferior vena cava. Inferior vena cava collapse with sniff. Pericardium/Pleural No pericardial effusion. MMode/2D Measurements & Calculations LVIDd: 5.4 cm IVSd: 1.1 cm LVOT diam: 2.6 cm LVIDs: 3.6 cm LVPWd: 1.2 cm LVOT area: 5.1 cm2 RVDd: 4.0 cm FS: 34.1 % Ao root diam: 3.9 cm LAV(MOD-bp): 50.9 ml Aortic Valve Planimetry: 2.0 cm2 LAV(MOD-bp) Indexed: 26.7 ml/m2 LAV(MOD-sp2): 54.6 ml LAV(MOD-sp4): 44.9 ml LA A4 area: 17.6 cm2 RA A4 area: 16.9 cm2 Time Measurements MV dec time: 0.32 sec Doppler Measurements & Calculations MV E max richard: 152.5 cm/sec Lat Peak E' Richard: 13.9 cm/sec Med Peak E' Richard: 5.2 cm/sec MV A max richard: 132.2 cm/sec E/E' lat: 10.9 E/E' med: 29.2 MV E/A: 1.2 MV V2 max: 151.2 cm/sec MV P1/2t max richard: 151.2 cm/sec Ao V2 max: 210.8 cm/sec MV max P.1 mmHg MV P1/2t: 101.6 msec Ao max P.8 mmHg MV V2 mean: 94.7 cm/sec MV dec slope: 435.8 cm/sec2 Ao V2 mean: 143.2 cm/sec MV mean P.2 mmHg Ao mean P.3 mmHg MV V2 VTI: 40.5 cm MVA(P1/2t): 2.2 cm2 Ao V2 VTI: 45.7 cm MVA(VTI): 2.5 cm2 CONSTANCE(I,D): 2.2 cm2 CONSTANCE(V,D): 2.3 cm2 LV V1 max: 93.4 cm/sec SV(LVOT): 102.3 ml PA V2 max: 101.1 cm/sec LV V1 max P.5 mmHg LV V1 mean P.7 mmHg LV V1 mean: 59.1 cm/sec LV V1 VTI: 19.9 cm TR max richard: 187.7 cm/sec TR max P.1 mmHg Interpretation Summary The estimated ejection fraction is 65 %. Moderately dilated right ventricle. Mild mitral valve stenosis. Peak transmitral valve gradient 9 mmHg. Mean transmitral valve gradient 4 mmHg. Trivial mitral valve insufficiency. Trivial tricuspid valve insufficiency. Right ventricular systolic pressure estimated to be 19 mmHg. Moderate diffuse aortic valve thickening. Mild restriction of the aortic valve. Mild aortic stenosis. Mild (1+) aortic valve insufficiency. Compared to echo report dated 03/08/2014, LV function and degree of aortic stenosis have remained the same. No pericardial effusion noted. Ordering Physician: Mikal Hwang Referring Physician: Zia Wakefield Performed By: Krishna Ramachandran RCS
== END | disposition home or self-care (01) ==
PROVIDERS: PCP Family Medicine; Referring Provider Internal Medicine Cardiovascular Disease; Visit Provider Internal Medicine Cardiovascular Disease
DX: I45.2 Bifascicular block (principal)
CPT/HCPCS: 93306

== ENCOUNTER → 2019-11-25 | Outpatient (CLI) | payer MEDICARE, SELFPAY ==
[2019-05-03 12:55] VITALS: BMI 22.8
[2019-11-25 14:39] VITALS: BMI 22.5
--- NOTE | 2019-11-25 15:50 | RAD_ITS ---
HISTORY: amiodarone therapy ADDITIONAL HISTORY: None provided. COMPARISON: 08/20/2018, 03/08/2014 EXAMINATION/TECHNIQUE: XR Chest 2 Views Number of images including paperwork: 2 FINDINGS: LUNGS AND PLEURA: No consolidation, mass or pleural effusion. CARDIAC SILHOUETTE: Unremarkable. MEDIASTINUM AND VANI: Unremarkable. UPPER ABDOMEN: Unremarkable. SKELETON AND SOFT TISSUES: No acute findings. Degenerative changes. OTHER DEVICES AND HARDWARE: Right shoulder prosthesis partially visible. Sternal wires and valvular prosthesis. RAD/Chest PA and Lateral IMPRESSION: No acute cardiopulmonary abnormality. at 0432 Reported and signed by: Karley Torres MD Electronically Signed: Karley Torres MD at 4:32 EDT Tel , Service support ,
[2019-11-25 17:58] LABS: AST(SGOT) 57 U/L (15-37); Alanine Aminotransfer ALT/SGPT 66 U/L (16-61); Albumin, Serum 3.2 g/dL (3.2-5.0); Alkaline Phosphatase 176 U/L (45-117); Globulin 4.3 g/dL (2.2-4.2); Protein, Total 7.5 g/dL (6.4-8.2); T4 Total, Thyroxin 13.1 ug/dL (4.5-12.1); Thyroid Stim Hormone (TSH) 0.97 uIU/mL (0.358-3.74)
== END | disposition home or self-care (01) ==
LOC: RAD 15:46
PROVIDERS: PCP Family Medicine; Referring Provider Internal Medicine Cardiovascular Disease; Visit Provider Internal Medicine Cardiovascular Disease
DX: E78.5 Hyperlipidemia, unspecified (principal); I10 Essential (primary) hypertension; I42.8 Other cardiomyopathies; I48.91 Unspecified atrial fibrillation; I97.89 Other postprocedural complications and disorders of the circulatory system, not elsewhere classified; I31.3 Pericardial effusion (noninflammatory); Z86.79 Personal history of other diseases of the circulatory system; Z95.828 Presence of other vascular implants and grafts; Z98.890 Other specified postprocedural states
CPT/HCPCS: 71046; 80076; 84436; 84443

== ENCOUNTER → 2019-12-14 | Outpatient (CLI) | payer MEDICARE, SELFPAY ==
[2019-05-03 12:55] VITALS: BMI 22.8
[2019-11-25 14:39] VITALS: BMI 22.5
--- NOTE | 2019-12-14 15:35 | PFTCOMP ---
COMPLETE PULMONARY FUNCTION TEST INTERPRETATION Brief HPI: Patient is a 79 year old male, currently under the care of Dr. Escobar, who presents to [facility] for complete pulmonary function tests secondary to diagnosis of A. fib with amiodarone. Respiratory therapist reports good effort and reproducible results. Interpretation: Forced expiration spirometry shows no large airways obstructive ventilatory defect with an FEV1 of 90% predicted. There is no significant bronchodilator response by strict ATS criteria. Spirograms are of good quality and plateau slowly, indicating slowly emptying areas of the lungs. The respiratory flow volume loop shows decreased expiratory flow rates at high lung volumes consistent with small airways obstruction. Lung volumes by body plethysmography show a normal total lung capacity at 6.9 L, 104% predicted. All other lung volumes are within normal limits. Diffusion capacity by carbon monoxide is normal at 87% predicted. The airway resistance is slightly elevated. No previous pulmonary function tests were available for review. Impression: Grossly normal pulmonary function test with some stigmata of possible small airways disease.
== END | disposition home or self-care (01) ==
PROVIDERS: PCP Family Medicine; Referring Provider Internal Medicine Cardiovascular Disease; Visit Provider Internal Medicine Cardiovascular Disease
DX: I42.8 Other cardiomyopathies (principal); I48.91 Unspecified atrial fibrillation; I97.89 Other postprocedural complications and disorders of the circulatory system, not elsewhere classified; E78.5 Hyperlipidemia, unspecified; I10 Essential (primary) hypertension; Z86.79 Personal history of other diseases of the circulatory system; Z95.828 Presence of other vascular implants and grafts; Z98.890 Other specified postprocedural states
CPT/HCPCS: 94060; 94726; 94729

== ENCOUNTER → 2020-01-04 11:16 | Outpatient (CLI) | payer MEDICARE, SELFPAY ==
[2019-05-03 12:55] VITALS: BMI 22.8
[2019-11-25 14:39] VITALS: BMI 22.5
[2020-01-04 12:45] LABS: T4 Total, Thyroxin 12.9 ug/dL (4.5-12.1); Thyroid Stim Hormone (TSH) 1.28 uIU/mL (0.358-3.74)
== END ==
PROVIDERS: PCP Family Medicine; Visit Provider Internal Medicine Cardiovascular Disease
DX: I48.0 Paroxysmal atrial fibrillation (principal); Z79.899 Other long term (current) drug therapy
CPT/HCPCS: 36415; 84436; 84443

== ENCOUNTER 2020-03-23 16:15 | Outpatient (RCR) | payer MEDICARE, SELFPAY ==
[2019-05-03 12:55] VITALS: BMI 22.8
[2019-11-25 14:39] VITALS: BMI 22.5
[2020-03-23 11:22] VITALS: BMI 21.3
== END 2020-03-23 23:59 ==
LOC: IMMUN 16:15
PROVIDERS: PCP Family Medicine; Visit Provider Family Medicine
DX: Z23 Encounter for immunization (principal)
CPT/HCPCS: 0011A; 0012A; 91301

== ENCOUNTER → 2020-03-29 08:09 | Outpatient (CLI) | payer MEDICARE, SELFPAY ==
[2019-05-03 12:55] VITALS: BMI 22.8
[2020-03-23 11:22] VITALS: BMI 21.3
[2020-03-29 10:29] LABS: AST(SGOT) 24 U/L (15-37); Alanine Aminotransfer ALT/SGPT 30 U/L (16-61); Albumin, Serum 3.4 g/dL (3.2-5.0); Alkaline Phosphatase 137 U/L (45-117); Cholesterol 128 mg/dL (200); Globulin 4.4 g/dL (2.2-4.2); High Density Lipoprotein 48 mg/dL; Protein, Total 7.8 g/dL (6.4-8.2); T4 Free Direct 1.38 ng/dL (0.76-1.46); T4 Total, Thyroxin 12.9 ug/dL (4.5-12.1); Thyroid Stim Hormone (TSH) 2.59 uIU/mL (0.358-3.74); Triglycerides 113 mg/dL; Very Low Density Lipoprotein 23 mg/dL (5-40)
== END ==
PROVIDERS: PCP Family Medicine; Referring Provider Internal Medicine Cardiovascular Disease; Visit Provider Internal Medicine Cardiovascular Disease
DX: I48.0 Paroxysmal atrial fibrillation (principal); E78.5 Hyperlipidemia, unspecified; E78.00 Pure hypercholesterolemia, unspecified; Z79.899 Other long term (current) drug therapy
CPT/HCPCS: 36415; 80061; 80076; 84436; 84439; 84443

== ENCOUNTER → 2020-09-29 07:55 | Outpatient (CLI) | payer MEDICARE, SELFPAY ==
[2019-05-03 12:55] VITALS: BMI 22.8
[2020-09-29 09:46] LABS: AST(SGOT) 24 U/L (15-37); Alanine Aminotransfer ALT/SGPT 30 U/L (16-61); Albumin, Serum 3.6 g/dL (3.2-5.0); Alkaline Phosphatase 120 U/L (45-117); Cholesterol 136 mg/dL (200); Globulin 4.3 g/dL (2.2-4.2); High Density Lipoprotein 54 mg/dL; Protein, Total 7.9 g/dL (6.4-8.2); T4 Free Direct 1.38 ng/dL (0.76-1.46); T4 Total, Thyroxin 11.9 ug/dL (4.5-12.1); Thyroid Stim Hormone (TSH) 2.12 uIU/mL (0.358-3.74); Triglycerides 92 mg/dL; Very Low Density Lipoprotein 18 mg/dL (5-40)
== END ==
PROVIDERS: PCP Family Medicine; Referring Provider Internal Medicine Cardiovascular Disease; Visit Provider Internal Medicine Cardiovascular Disease
DX: E78.5 Hyperlipidemia, unspecified (principal); I48.0 Paroxysmal atrial fibrillation; Z79.899 Other long term (current) drug therapy
CPT/HCPCS: 36415; 80061; 80076; 84436; 84439; 84443

== ENCOUNTER → 2020-10-17 10:49 | Outpatient (CLI) | payer MEDICARE, SELFPAY ==
[2019-05-03 12:55] VITALS: BMI 22.8
[2020-10-04 10:23] VITALS: BMI 21.9
--- NOTE | 2020-10-17 10:53 | ECHOD_ITS ---
Reason For Study: Valve repair evaluation Procedure This was a 2D Doppler, Color Flow transthoracic echocardiogram. Technically difficult apical images. Patient scanned supine and in left lateral position. The study was technically difficult. Exam performed in department. Left Ventricle Normal LV size. Left ventricular systolic function is normal. The estimated ejection fraction is 60 %. No regional wall motion abnormalities noted. Right Ventricle Moderately dilated right ventricle. Mild global right ventricular systolic dysfunction. Atria The left atrium is mildly enlarged. The right atrium is mildly enlarged. No doppler evidence for ASD. Mitral Valve There is mild mitral annular calcification. Anterior leaflet diffuse mitral valve thickening. The mitral valve chordae are thickened and/or calcified. The mitral papillary muscle appears thickened and/or calcified. An annuloplasty ring is noted in the mitral position. Trivial transvalvular insufficiency of the mitral valve. Tricuspid Valve Normal tricuspid valve. Mild tricuspid valve insufficiency. Right ventricular systolic pressure estimated to be 19 mmHg. Aortic Valve Trisinus/trileaflet aortic valve. Mild diffuse aortic valve thickening. Mild focal aortic valve calcification. Trivial aortic valve insufficiency. Pulmonic Valve The pulmonic valve is not well visualized. Trivial pulmonic valve insufficiency. Great Vessels The aortic root is not well visualized. Pericardium/Pleural No pericardial effusion. MMode/2D Measurements & Calculations LVIDd: 5.0 cm IVSd: 1.2 cm LVOT diam: 2.2 cm LVIDs: 3.8 cm LVPWd: 1.0 cm LVOT area: 3.8 cm2 RVDd: 4.3 cm FS: 23.9 % LA dimension: 4.0 cm LAV(MOD-bp): 73.9 ml LA A4 area: 23.2 cm2 LAV(MOD-bp) Indexed: 38.8 ml/m2 LAV(MOD-sp2): 66.5 ml LAV(MOD-sp4): 67.1 ml RA A4 area: 21.0 cm2 Time Measurements MV dec time: 0.23 sec Doppler Measurements & Calculations MV E max salvador: 125.6 cm/sec MV V2 max: 145.9 cm/sec MV P1/2t max salvador: 145.9 cm/sec MV A max salvador: 77.2 cm/sec MV max P.5 mmHg MV P1/2t: 70.8 msec MV E/A: 1.6 MV V2 mean: 83.9 cm/sec MV dec slope: 603.3 cm/sec2 MV mean P.3 mmHg MV V2 VTI: 37.4 cm MVA(P1/2t): 3.1 cm2 MVA(VTI): 2.1 cm2 Ao V2 max: 166.5 cm/sec LV V1 max: 90.6 cm/sec SV(LVOT): 77.3 ml Ao max P.1 mmHg LV V1 max P.3 mmHg Ao V2 mean: 113.1 cm/sec LV V1 mean P.6 mmHg Ao mean P.9 mmHg LV V1 mean: 59.0 cm/sec Ao V2 VTI: 38.4 cm LV V1 VTI: 20.6 cm CONSTANCE(I,D): 2.0 cm2 CONSTANCE(V,D): 2.0 cm2 PA V2 max: 83.8 cm/sec TR max salvador: 199.9 cm/sec TR max P.1 mmHg ECHO/Echo Complete Interpretation Summary The study was technically difficult. Left ventricular systolic function is normal. The estimated ejection fraction is 60 %. Moderately dilated right ventricle. Mild global right ventricular systolic dysfunction. The left atrium is mildly enlarged. The right atrium is mildly enlarged. An annuloplasty ring is noted in the mitral position. There is mild mitral annular calcification. Anterior leaflet diffuse mitral valve thickening. The mitral valve chordae are thickened and/or calcified. The mitral papillary muscle appears thickened and/or calcified. Trivial transvalvular insufficiency of the mitral valve. Mild tricuspid valve insufficiency. Mild diffuse aortic valve thickening. Mild focal aortic valve calcification. Trivial aortic valve insufficiency. Trivial pulmonic valve insufficiency. Right ventricular systolic pressure estimated to be 19 mmHg. Transmitral diastolic flow velocities suggest diastolic dysfunction (pseudonorm al pattern). Ordering Physician: Raimundo Escobar Referring Physician: Zia Wakefield Performed By: Krishna Ramachandran RCS
== END ==
PROVIDERS: PCP Family Medicine; Referring Provider Internal Medicine Cardiovascular Disease; Visit Provider Internal Medicine Cardiovascular Disease
DX: I35.1 Nonrheumatic aortic (valve) insufficiency (principal); Z86.79 Personal history of other diseases of the circulatory system; Z98.890 Other specified postprocedural states
CPT/HCPCS: 93306

== ENCOUNTER 2021-04-10 11:50 | Day surgery (SDC) | payer MEDICARE, SELFPAY ==
[2019-05-03 12:55] VITALS: BMI 22.8
[2021-04-10 12:10] VITALS: BP 127/68; PULSE 79; RESP 16; TEMP 37.1; O2SAT 99; BMI 21.9
[2021-04-10 12:16] LABS: INR Fingerstick 1.5; Prothrombin Time Fingerstick 18.6 SEC (11.9-14.4)
[2021-04-10] MEDS: Lactated Ringers 1,000 ML 15 ML IV (12:22)
--- NOTE | 2021-04-10 13:00 | EGD_PTH ---
PATIENT: CLEO MEZA LOC: EN U#:[id number] AGE/SX: 81/M ROOM: RE04/10/[address]: Dr. Reuben Santos DO : 1940 BED: DIS: 04/10/2021 SPEC #: [id number] RECD: 04/10/21 16:48 STATUS: OLIVER ADRIA #: [id number] CHAVA: 04/10/21 13:[address]: Reuben Santos DEPT: SURGICAL PATHOLOGY RECD BY: Edilia Cano ENTERED: 04/11/21 08:48 SP TYPE: EGD BIOPSY KELLEN DR: Dr. Anthony Wakefield MD Tissues: A - Esophagus, NOS B - Esophagus, NOS Procedures: Special Stain Group II Surgery Specimen Level IV Alcian Blue/PAS (control) HEADER OPERATION: EGD with biopsies and dilation (MAC) PRE-OP DIAGNOSIS: Difficulty swallowing TISSUE SUBMITTED: A ? Distal esophagus biopsy, B ? Random esophagus biopsy MICROSCOPIC DIAGNOSIS A. Distal esophagus, biopsy: Fragments of gastroesophageal mucosa with moderate chronic inflammation. Intestinal metaplasia (goblet cell metaplasia) is not identified. See comment. B. Esophagus, random biopsy: Fragments of squamous epithelium with minimal chronic inflammation. RENEE:dian 04/12/2021 COMMENT A. Alcian blue/PAS stain with matched control is used in the evaluation of the specimen. MICROSCOPIC DESCRIPTION Slides are reviewed. GROSS DESCRIPTION A - Received in fixative is one container labeled with the patient's name and designated distal esophagus. The specimen consists of multiple irregular fragments of light ayoub soft tissue that in aggregate measure 1 x 0.3 x 0.1 cm. The specimen is totally submitted in one cassette. B - Received in fixative is one container labeled with the patient's name and designated random esophagus. The specimen consists of multiple irregular fragments of light ayoub soft tissue that in aggregate measure 0.4 x 0.4 x 0.1 cm. The specimen is totally submitted in one cassette. / RENEE:dian 04/11/2021 TC:3 CPT: 54721 x2, 49315
--- NOTE | 2021-04-10 13:13 | HP.PCM_ITS ---
History and Physical Date of Admission: 04/10/21 81 M who presents to the office today for Has difficulty with intermittent difficulty swallowing with everything for the last five months. Occurs five out of seven days a week. PCP seen USHA Morrison who referred him to a certified travel counselor in [place] in January who gave him the choice of PPI therapy and then endoscopy or endoscopy, chose endoscopy. However, a family crisis emerged and he needed to cancel and would like to establish with a local practice. Additional history of ankylosing spondylitis, melanocytic chest, anxiety, HTN, BPH, osteoporosis, microscopic hematuria, A-Fib. Feels he may have had an EGD 2010 but does not recall results or reason for procedure. He has had two colonoscopies in his past, most recently ten years prior. ROS Const Constitutional: No anorexia, body ache, chills, excessive sweating, fatigue, fever(s), frequent falls, headache(s), decreased energy, malaise, night sweats, snoring, weakness, weight change, sleep problems, abnormal sleep pattern, change in appetite or other Eyes Eyes: No blurry vision, change in vision, double vision, irritation, discharge, vision loss, dry eyes, bulging eyes, floaters, visual disturbances, eye pain, Light sensitivity, spots in vision, tunnel vision or other ENT ENT: Positive for tinnitus, difficulty swallowing, hoarseness and sore throat; No abnormal hearing, ear or mastoid pain, ear discharge, ear pressure, hearing loss, dizziness/vertigo, balance problems, nosebleed/epistaxis, nasal congestion, nasal obstruction, nose pain, sinus pressure, sinus pain, nasal discharge, post nasal drip, headache(s), facial pain, dental pain, dry mouth, bad breath, lip swelling, mouth lesions, mouth pain, neck pain, tongue swelling, throat swelling or other Resp Respiratory: Positive for cough; No snoring Cardio Cardiology: No excessive sweating Gastro GI: Positive for difficulty swallowing Genitourinary Male: No difficulty urinating, burning urination, painful urination, urinary incontinence, urinary frequency, urinary urgency, urinary hesitancy, urinary retention, blood in urine, Frequent nighttime urination/ nocturia, post void dribbling, suprapubic fullness, side pain, sexual problems, genital lesions, genital itching, erectile dysfunction, penile discharge, difficulty with ejaculations, blood in semen, scrotal swelling, testicle lump, testicle pain or other Musc Musculoskeletal: Positive for Arthritis; No neck pain Skin Skin: No acne, hair loss in leg, change in hair, nail changes, boil, change in skin color, dry skin, redness, excessive hair growth, yellowing of the eye, lesions, itchy eyes, rash, skin pain, skin ulcer, sores, skin swelling, wounds or other Neuro Neurology: No abnormal hearing, weakness, frequent falls, headache(s) or visual disturbances Psych Psychiatric: No abnormal sleep pattern, Positive for anxiety, No change in appetite and Positive for depression Endo Endocrine: No excessive sweating, fatigue, weight change or other Aller/Imm Allergy/Immunologic: No itchy eyes, lip swelling, throat swelling or tongue swelling George/Lymp Hematologic/Lymphatic: No easy bleeding, easy bruising, enlarged lymph nodes or other Exam Const General: cooperative and comfortable Nutritional Appearance: average body habitus and well nourished HENMT Head: normal to inspection Ears: hearing grossly normal bilaterally Nose: external nose normal Face and sinus: normal facial exam Mouth: oral mucosae normal Throat: posterior oropharynx normal Eyes General: appearance normal, both eyes and all related structures Neck Neck: normal visual inspection Chest Chest palpation & inspection: normal inspection of the chest and normal palpation of entire chest wall Resp Effort & Inspection: normal respiratory effort Auscultation: Bilateral: Clear to Auscultation Cardio Palpation: normal PMI Rate: regular rate Rhythm: regular rhythm GI Inspection: normal to inspection Auscultation: normal bowel sounds Percussion: normal to percussion Palpation: no hepatosplenomegaly Skin General: no rashes or lesions noted Neuro General: patient alert Extrem General: normal to inspection Psych Affect: normal affect Quality Reporting Tobacco Screening ([facility] 138) Smoking Status: Former smoker Assessment and Plan Assessment and Plan (1) Difficulty swallowing: Status: Acute Orders: Orders: EGD 03/07/21 Plan - Dr. 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 He will undergo an upper endoscopy. He was explained the risks, benefits, risks including understanding, infection, sepsis, perforation, need for emergent surgery and . He will have an ASA of 3 I have re-examined the patient. There are no clinical changes since date of exam.
[2021-04-10 13:39] VITALS: BP 111/52; BP 127/68; PULSE 78; RESP 16; TEMP 36.3; O2SAT 92
[2021-04-10 13:45] VITALS: BP 107/68; BP 127/68; PULSE 74; RESP 16; O2SAT 91
[2021-04-10 13:50] VITALS: BP 118/62; BP 127/68; PULSE 74; RESP 16; O2SAT 93
[2021-04-10 13:56] VITALS: BP 105/77; BP 127/68; PULSE 73; RESP 16; TEMP 36.8; O2SAT 96
--- NOTE | 2021-04-10 14:07 | OP.EGD_ITS ---
Patient Name: Jamel Garza Procedure Date: 04/10/2021 1:12 PM Date of : 1940 Age: 81 Procedure: Upper GI endoscopy Indications: Dysphagia Providers: Reuben Santos DO Medicines: See the Anesthesia note for documentation of the administered medications Patient Profile: This is an 81 year old male. Refer to note in patient chart for documentation of history and physical. Patient has symptoms of dysphagia with both liquids and solids. Complications: No immediate complications. Procedure: Pre-Anesthesia Assessment: - Prior to the procedure, a History and Physical was performed, and patient medications and allergies were reviewed. The patient is competent. The risks and benefits of the procedure and the sedation options and risks were discussed with the patient. All questions were answered and informed consent was obtained. Patient identification and proposed procedure were verified by the physician in the pre-procedure area. Mental Status Examination: alert and oriented. Airway Examination: normal oropharyngeal airway and neck mobility. Respiratory Examination: clear to auscultation. CV Examination: normal. Prophylactic Antibiotics: The patient does not require prophylactic antibiotics. Prior Anticoagulants: The patient has taken no previous anticoagulant or antiplatelet agents. ASA Grade Assessment: II - A patient with mild systemic disease. After reviewing the risks and benefits, the patient was deemed in satisfactory condition to undergo the procedure. The anesthesia plan was to use moderate sedation / analgesia (conscious sedation). Immediately prior to administration of medications, the patient was re-assessed for adequacy to receive sedatives. The heart rate, respiratory rate, oxygen saturations, blood pressure, adequacy of pulmonary ventilation, and response to care were monitored throughout the procedure. The physical status of the patient was re-assessed after the procedure. After obtaining informed consent, the endoscope was passed under direct vision. Throughout the procedure, the patient's blood pressure, pulse, and oxygen saturations were monitored continuously. The gastroscope was introduced through the mouth, and advanced to the second part of duodenum. The upper GI endoscopy was accomplished without difficulty. The patient tolerated the procedure well. Moderate Sedation: Moderate (conscious) sedation was administered by the endoscopy nurse and supervised by the endoscopist. The following parameters were monitored: oxygen saturation, heart rate, blood pressure, and response to care. Total physician intraservice time was 15 minutes. Scope In: 1:25:45 PM Scope Out: 1:33:40 PM Total Procedure Duration Time 0 hours 7 minutes 55 seconds Findings: A severe Schatzki ring was found in the upper third of the esophagus. A guidewire was placed and the scope was withdrawn. Dilation was performed with a Savary dilator with no resistance at 51 Fr. The dilation site was examined following endoscope reinsertion and showed moderate improvement in luminal narrowing. Estimated blood loss was minimal. LA Grade A (one or more mucosal breaks less than 5 mm, not extending between tops of 2 mucosal folds) esophagitis with no bleeding was found 34 to 35 cm from the incisors. Biopsies were taken with a cold forceps for histology. Verification of patient identification for the specimen was done. Estimated blood loss was minimal. Abnormal motility was noted in the middle third of the esophagus. The cricopharyngeus was abnormal. There is spasticity of the esophageal body. The distal esophagus/lower esophageal sphincter is spastic, but gives up passage to the endoscope. Biopsies were taken with a cold forceps for histology. Verification of patient identification for the specimen was done. Estimated blood loss was minimal. A moderate Schatzki ring was found in the lower third of the esophagus. The entire examined stomach was normal. A 5 mm non-bleeding diverticulum was found in the second portion of the duodenum. Impression: - Severe Schatzki ring. Dilated. - LA Grade A reflux esophagitis. Biopsied. - Abnormal esophageal motility, suspicious for esophageal spasm. Biopsied. - Moderate Schatzki ring. - Normal stomach. - Non-bleeding duodenal diverticulum. Recommendation: - Discharge patient to home. - Resume previous diet. - Continue present medications. - Await pathology results. - Return to my office. Procedure Code(s): --- Professional --- 36745, Esophagogastroduodenoscopy, flexible, transoral; with insertion of guide wire followed by passage of dilator(s) through esophagus over guide wire 21845, 59, Esophagogastroduodenoscopy, flexible, transoral; with biopsy, single or multiple 41730, 59, Moderate sedation services provided by the same physician or other qualified health point of care specialist performing the diagnostic or therapeutic service that the sedation supports, requiring the presence of an independent trained observer to assist in the monitoring of the patient's level of consciousness and physiological status; initial 15 minutes of intraservice time, patient age 5 years or older CPT copyright 2017 [employer]. All rights reserved. The codes documented in this report are preliminary and upon railroad worker review may be revised to meet current compliance requirements. Reuben Santos DO 04/10/2021 2:07:20 PM This report has been signed electronically. Number of Addenda: 1 Note Initiated On: 04/10/2021 1:12 PM Addendum Number: 1 Addendum Date: 11/19/2021 6:53:12 AM MAC was used for sedation during this procedure. Reuben Santos DO 11/19/2021 6:53:16 AM This report has been signed electronically.
--- NOTE | 2021-04-10 14:08 | OP.CCLET_ITS ---
11/19/2021 Anthony Wakefield Re : Upper GI endoscopy procedure for Jamel Simmons Ashu This procedure was performed on Saturday, April 10, 2021. My impressions and recommendations are as follows: Impressions : - Severe Schatzki ring. Dilated. - LA Grade A reflux esophagitis. Biopsied. - Abnormal esophageal motility, suspicious for esophageal spasm. Biopsied. - Moderate Schatzki ring. - Normal stomach. - Non-bleeding duodenal diverticulum. Recommendations : - Discharge patient to home. - Resume previous diet. - Continue present medications. - Await pathology results. - Return to my office. My findings are described in the full procedure note, which is enclosed. If I can be of further assistance, please feel free to contact me at . Sincerely, Reuben Friend, 04/10/2021 2:07:20 PM This report has been signed electronically.
[2021-04-10 14:25] VITALS: BP 127/68
== END 2021-04-10 23:59 | disposition home or self-care (01) ==
LOC: EN 11:51 → AC 11:53
PROVIDERS: PCP Family Medicine; Referring Provider Family Medicine; Visit Provider Internal Medicine Gastroenterology
PROC: 0DJ08ZZ Inspection of Upper Intestinal Tract, Via Natural or Artificial Opening Endoscopic (ICD-10-PCS; CPT 43235; principal; 2021-04-10 12:55)
DX: R13.10 Dysphagia, unspecified (principal); K57.10 Diverticulosis of small intestine without perforation or abscess without bleeding; K21.00 Gastro-esophageal reflux disease with esophagitis, without bleeding; Z87.891 Personal history of nicotine dependence; K22.2 Esophageal obstruction; K22.5 Diverticulum of esophagus, acquired; Z79.899 Other long term (current) drug therapy; Z79.82 Long term (current) use of aspirin; Z79.01 Long term (current) use of anticoagulants
CPT/HCPCS: 43248; 43239; 36416; 85610; 88305; 88313; J7120; C1769; J2405

== ENCOUNTER 2021-04-12 07:46 | Outpatient (CLI) | payer MEDICARE, SELFPAY ==
[2019-05-03 12:55] VITALS: BMI 22.8
[2021-04-12 08:48] LABS: AST(SGOT) 25 U/L (15-37); Alanine Aminotransfer ALT/SGPT 32 U/L (16-61); Albumin, Serum 3.3 g/dL (3.2-5.0); Alkaline Phosphatase 159 U/L (45-117); Bilirubin, Direct 0.28 mg/dL (0.00-0.30); Cholesterol 103 mg/dL (200); Globulin 4.5 g/dL (2.2-4.2); High Density Lipoprotein 50 mg/dL; Protein, Total 7.8 g/dL (6.4-8.2); T4 Free Direct 1.39 ng/dL (0.76-1.46); Thyroid Stim Hormone (TSH) 2.17 uIU/mL (0.358-3.74); Triglycerides 65 mg/dL; Very Low Density Lipoprotein 13 mg/dL (5-40)
== END 2021-04-12 23:59 | disposition home or self-care (01) ==
LOC: LAB 07:48
PROVIDERS: PCP Family Medicine; Referring Provider Internal Medicine Cardiovascular Disease; Visit Provider Internal Medicine Cardiovascular Disease
DX: E78.00 Pure hypercholesterolemia, unspecified (principal); I48.0 Paroxysmal atrial fibrillation; E78.5 Hyperlipidemia, unspecified; I10 Essential (primary) hypertension; Z79.899 Other long term (current) drug therapy
CPT/HCPCS: 36415; 80061; 80076; 84439; 84443

== ENCOUNTER 2021-09-05 12:26 | Emergency (ER) | payer MEDICARE, SELFPAY ==
[2019-05-03 12:55] VITALS: BMI 22.8
[2021-09-05 12:26] VITALS: BP 134/68; PULSE 78; RESP 20; TEMP 36.4; O2SAT 97; BMI 23.1
--- NOTE | 2021-09-05 12:50 | EKG12_ITS ---
Test Reason : sob Blood Pressure : / mmHG Vent. Rate : 065 BPM Atrial Rate : 065 BPM P-R Int : 208 ms QRS Dur : 156 ms QT Int : 470 ms P-R-T Axes : 057 -68 152 degrees QTc Int : 488 ms Normal sinus rhythm Right bundle branch block Left anterior fascicular block Bifascicular block Septal infarct , age undetermined , cannot be excluded Abnormal ECG Confirmed by MADAY MCCARTY, VASQUEZ ([id number]), editor at large YUVAL FITZGERALD ([id number]) on 09/08/2021 9:38:07 AM Referred By: Magui Confirmed By:VASQUEZ NASSAR MD
--- NOTE | 2021-09-05 12:52 | ED.VIS.DYS ---
HPI History of Present Illness Chief Complaint: Shortness of Breath Informant: patient Narrative Narrative: 81-year-old male presenting with shortness of breath. He states this has been progressively worsening over the past week or so. He states it is gotten to the point where he cannot walk up a flight of steps without being extremely short of breath. He denies chest pain. He complains of bilateral lower extremity swelling. Recent travel. He is on Coumadin with recent elevated INR. He has had a mild cough. Denies fever. Recent Illness/Hospitalization: No PFSH [facility] Medical History Alcohol use Ankylosing spondylitis Anxiety Ascending aortic aneurysm Atelectasis BPH (benign prostatic hyperplasia) Cardiology follow-up encounter Cranial nerve palsy Diplopia Diverticulitis Dupuytren contracture Essential hypertension Former smoker Former smoker, stopped smoking many years ago High cholesterol History of atrial fibrillation History of echocardiogram History of irregular heartbeat History of stress test Hyperlipidemia half-way current use of anticoagulant Marijuana use Nonischemic cardiomyopathy Nonrheumatic aortic valve regurgitation Nonrheumatic mitral valve regurgitation Osteoarthritis Paroxysmal atrial fibrillation Pericardial effusion Postoperative atrial fibrillation Prostate disease Right bundle branch block and left anterior fascicular block Schatzki's ring Wears glasses Wears hearing aid Home Medications acetaminophen 325 mg tablet 650 mg PO QHS pain 06/02/19 [History Last Taken 09/04/21] aspirin 81 mg tablet,delayed release (Adult Aspirin Regimen) 81 mg PO DAILY 06/02/19 [History Last Taken 09/05/21] multivitamin 1 tab PO DAILY 06/02/19 [History Last Taken 09/05/21] warfarin 3 mg tablet 3 mg PO SUMOTUWEFRSA 08/03/19 [History Last Taken 09/03/21] melatonin 5 mg tablet 5 mg PO HS PRN Sleep 11/25/19 [History Last Taken 09/04/21] metoprolol tartrate 25 mg tablet 25 mg PO BID 11/25/19 [History Last Taken 09/05/21] trazodone 50 mg tablet 50 mg PO DAILY 11/25/19 [History Last Taken 09/04/21] rosuvastatin 5 mg tablet 5 mg PO DAILY cholesterol 03/23/20 [History Last Taken 09/04/21] tamsulosin 0.4 mg capsule 0.8 mg PO QHS 03/23/20 [History Last Taken 09/04/21] amiodarone 200 mg tablet 100 mg PO DAILY #45 tabs 04/09/21 [Rx Last Taken 09/05/21] warfarin 3 mg tablet 6 mg PO TH blood thinner 09/05/21 [History Last Taken 08/30/21] Allergy/AdvReac Type Severity Reaction Status Date / Time citalopram AdvReac Intermediate GI upset Verified 09/05/21 12:29 lisinopril AdvReac Intermediate cough Verified 09/05/21 12:29 tramadol [From Ultram] AdvReac Intermediate vomiting Verified 09/05/21 12:29 oxycodone AdvReac Nausea Verified 09/05/21 12:29 Family History Father ETOH abuse Congestive heart failure Grandfather Gastric cancer Grandfather CVA (cerebral vascular accident) Diabetes CAD (coronary artery disease) Grandmother CVA (cerebral vascular accident) Surgical History H/O arthroscopic knee surgery H/O arthroscopic knee surgery H/O vasectomy History of aortic valve repair (01/13/19) History of cardiac catheterization History of cardioversion (04/02/19) History of right knee joint replacement History of right shoulder replacement Hx of ascending aorta replacement (01/13/19) Hx of mitral valve repair (01/13/19) Social History Smoking Status: Former smoker quit date: 10/23/70 pack-years: 15 alcohol intake: current alcohol intake frequency: a few times a week Alcohol type: beer and wine substance use type: marijuana and other details: uses for pain relief, sleep and anxiety ROS ROS ED Constitutional Constitutional ED: Denies fever(s) Eyes Eyes: Denies change in vision ENT ENT ED: Denies rhinorrhea Cardiovascular Cardiovascular: Denies chest pain or palpitations Respiratory/Chest Respiratory/Chest: Reports cough, dyspnea and dyspnea on exertion Gastrointestinal Gastrointestinal: Denies abdominal pain, diarrhea, nausea or vomiting Genitourinary Genitourinary ED: Denies dysuria Musculoskeletal Musculoskeletal: Denies back pain Integumentary Denies rash Neurologic Neurologic: Denies headache(s), paresthesias or weakness EXAM Physical Exam Const Vital Signs: 09/05/21 12:26 09/05/21 12:37 09/05/21 14:26 Temperature 97.6 F L Temperature Source Temporal Pulse Rate 78 64 Respiratory Rate 20 H 20 H Respiratory Effort Short of Breath Respiratory Depth Shallow Respiratory Pattern Normal Blood Pressure 134/68 H 126/78 H Blood Pressure Mean 90 94 Pulse Ox 97 96 Oxygen Delivery Method Room Air Room Air Positive well nourished and well developed General Appearance ED: well developed HEENT Reports moist mucous membranes Eyes PERRL and EOMs intact bilaterally Resp normal respiratory effort Auscultation: rales bilateral Cardio regular rate and regular rhythm GI non-tender and non-distended Back/Spine no CVA tenderness Extremity General Extremety ED: Yes edema General Extremity: edema Neuro oriented x3 Motor Exam: strength 5/5 throughout Psych mental status grossly normal Skin no wounds MDM MDM MDM Narrative Medical decision making narrative: EKG is sinus rate of 65, right bundle branch block. Chest x-ray read by myself and radiology shows mild CHF. CBC, chemistries are unremarkable. Troponin is negative. INR 4.2. BNP 496.6. Discussed with Dr. Escobar. He was given Lasix IV. Will discuss with hospitalist for admission. Lab Data Attestation: I reviewed the patient's lab results. Labs: Laboratory Results - last 24 hr 09/05/21 09/05/21 09/05/21 12:50 12:50 12:50 WBC 5.1 RBC 4.37 L Hgb 12.3 L Hct 38.9 L MCV 89.0 MCH 28.1 MCHC 31.6 L RDW Std Deviation 52.2 H RDW Coeff of Efraín 15.9 H Plt Count 148 L MPV 10.6 Immature Gran % (Auto) 0.200 Neut % (Auto) 59.1 Lymph % (Auto) 23.3 [place] % (Auto) 15.4 H Eos % (Auto) 1.8 Baso % (Auto) 0.2 Absolute Neuts (auto) 3.0 Absolute Lymphs (auto) 1.20 Nucleated RBC % 0 PT 40.1 H INR 4.2 H* Sodium 142 Potassium 4.9 Chloride 111 H Carbon Dioxide 26.0 Anion Gap 5 BUN 22 H Creatinine 0.96 Estim Creat Clear Calc 64.04 Est GFR (MDRD) Af Amer 97 Est GFR (MDRD) Non-Af 80 BUN/Creatinine Ratio 23.0 H Glucose 96 Calcium 9.0 Troponin I High Sens 9 B-Natriuretic Peptide 09/05/21 12:50 WBC RBC Hgb Hct MCV MCH MCHC RDW Std Deviation RDW Coeff of Efraín Plt Count MPV Immature Gran % (Auto) Neut % (Auto) Lymph % (Auto) [place] % (Auto) Eos % (Auto) Baso % (Auto) Absolute Neuts (auto) Absolute Lymphs (auto) Nucleated RBC % PT INR Sodium Potassium Chloride Carbon Dioxide Anion Gap BUN Creatinine Estim Creat Clear Calc Est GFR (MDRD) Af Amer Est GFR (MDRD) Non-Af BUN/Creatinine Ratio Glucose Calcium Troponin I High Sens B-Natriuretic Peptide 496.6 H Radiography Chest X-Ray - ED: 1 View, Read by ED Physician and Read by Radiologist Diagnostic Testing: Clinical Impression(s) from Imaging Studies Chest X-Ray 09/05/21 12:56 IMPRESSION: Mild CHF. Electronically Signed: Norman Holloway MD at 13:35 EDT , EKG Initial EKG: Attestation: I personally reviewed and interpreted this EKG as follows: Interpretation: Sinus Rhythm, No Acute Injury Pattern and RBBB Discharge Plan Triage Chief Complaint: Shortness of Breath ED Provider: Hillary Kilgore Dx/Rx/DC Orders Clinical Impression: Acute exacerbation of CHF (congestive heart failure), Supratherapeutic INR Prescriptions: No Action acetaminophen 325 mg tablet 650 mg PO QHS aspirin [Adult Aspirin Regimen] 81 mg tablet,delayed release (DR/EC) 81 mg PO DAILY multivitamin Tablet 1 tab PO DAILY warfarin 3 mg tablet 3 mg PO SUMOTUWEFRSA Label Comments: pt was to hold for 2 days and rechech inr on 09/06/21 trazodone 50 mg tablet 50 mg PO DAILY tamsulosin 0.4 mg capsule 0.8 mg PO QHS rosuvastatin 5 mg tablet 5 mg PO DAILY melatonin 5 mg tablet 5 mg PO HS PRN (Reason: Sleep) metoprolol tartrate 25 mg tablet 25 mg PO BID warfarin 3 mg tablet 6 mg PO TH Label Comments: pt was to hold for 2 days and rechech inr on 09/06/21 amiodarone 200 mg tablet 100 mg PO DAILY Qty: 45 3RF Primary Care Provider: Anthony Wakefield Referrals: Anthony Wakefield MD [Primary Care Provider] - Disposition Disposition: Acute Care Hospital [facility]
--- NOTE | 2021-09-05 12:56 | RAD_ITS ---
EXAM: XR CHEST, 1 VIEW CLINICAL INDICATION: sob TECHNIQUE: Frontal view of the chest. This report was created using [employer] report generation technology. COMPARISON: XR Chest dated november 25 2019 FINDINGS: LUNGS AND PLEURAL SPACES: Pulmonary venous congestion. Small right pleural effusion. No pneumothorax. HEART: Heart is normal size. Mitral valve prosthesis again seen. MEDIASTINUM: Central airways and mediastinal contour are unremarkable. BONES/JOINTS: Unremarkable. SOFT TISSUES: Unremarkable. RAD/Chest 1 View (Portable) IMPRESSION: Mild CHF. Electronically Signed: Norman Holloway MD at 13:35 EDT ,
[2021-09-05 13:07] LABS: Basophil# 0.01 X10^3/uL; Basophil% 0.2 % (0-1); Eosinophil# 0.09 X10^3/uL; Eosinophils% 1.8 % (0-5); Hematocrit 38.9 % (40-54); Hemoglobin 12.3 g/dL (13.0-16.5); Lymphocyte % 23.3 % (19-41); Mean Corp Hgb Conc 31.6 g/dL (32-36); Mean Corpuscular Hgb 28.1 pg (27.0-32.0); Mean Platelet Vol. 10.6 fl (6.2-12.0); Monocyte# 0.79 X10^3/uL; Monocyte% 15.4 % (0-10); NRBC Flagged by Analyzer 0 % (0-5); Neutrophil # 3.04 X10^3/uL (2.7-7.7); Neutrophil % 59.1 % (47-70); Platelet Count 148 K/mm3 (150-450); RBC Distribution Width CV 15.9 % (11.6-14.6); RBC Distribution Width SD 52.2 fl (35.1-43.9); Red Blood Count 4.37 M/mm3 (4.6-6.2); White Blood Count 5.1 K/mm3 (4.4-11.0)
[2021-09-05 13:12] LABS: International Normalized Ratio 4.2
[2021-09-05 13:24] LABS: Anion Gap 5 (5-15); BUN 22 mg/dL (7-18); Chloride 111 mmol/L (98-107); Creatinine, Serum 0.96 mg/dL (0.70-1.30); EST Glomerular Filtration Rate 80 mL/min (>60); Est Glom Filt Rate - Afr Amer 97 mL/min (>60); Estimated Creatinine Clearance 64.04 ml/min; Glucose 96 mg/dL (74-106); Potassium 4.9 mmol/L (3.5-5.1); Sodium Level 142 mmol/L (136-145); Troponin-I HS 9 pg/mL (3.0-78.0)
[2021-09-05 13:26] LABS: BNP,B-Type NATRIURETIC PEPTIDE 496.6 pg/mL (0-100); Prothrombin Time (Protime)PT. 40.1 SECONDS (11.7-14.9)
[2021-09-05 14:26] VITALS: BP 126/78; PULSE 64; RESP 20; O2SAT 96
[2021-09-05] MEDS: Furosemide 40 MG/4 ML Vial IV (14:56)
--- NOTE | 2021-09-05 15:47 | DCINST_ITS ---
Discharge Instructions Diet Discharge Diet: Low fat / Low cholesterol and 8 Cup Fluid Restriction Dressing / Incision Call your doctor if you observe: Shortness of breath and Swelling in the ankles Follow Up Care Test Results: Test results from this visit will be discussed in further detail at your follow- up appointment, if applicable. Discharge Plan Triage Chief Complaint: Shortness of Breath ED Provider: Hillary Kilgore Dx/Rx/DC Orders Clinical Impression: Acute exacerbation of CHF (congestive heart failure), Heart failure, Supratherapeutic INR Prescriptions: New furosemide 40 mg tablet 40 mg PO DAILY Qty: 30 0RF potassium chloride 8 mEq capsule, extended release 8 meq PO DAILY Qty: 30 0RF Continued acetaminophen 325 mg tablet 650 mg PO QHS aspirin [Adult Aspirin Regimen] 81 mg tablet,delayed release (DR/EC) 81 mg PO DAILY multivitamin Tablet 1 tab PO DAILY trazodone 50 mg tablet 50 mg PO DAILY tamsulosin 0.4 mg capsule 0.8 mg PO QHS rosuvastatin 5 mg tablet 5 mg PO DAILY melatonin 5 mg tablet 5 mg PO HS PRN (Reason: Sleep) metoprolol tartrate 25 mg tablet 25 mg PO BID amiodarone 200 mg tablet 100 mg PO DAILY Qty: 45 3RF Held warfarin 3 mg tablet 3 mg PO SUMOTUWEFRSA Hold Instructions: Resume on 09/07/21. Label Comments: pt was to hold for 2 days and rechech inr on 09/06/21 Discontinued warfarin 3 mg tablet 6 mg PO TH Label Comments: pt was to hold for 2 days and rechech inr on 09/06/21 Primary Care Provider: Anthony Wakefield Referrals: Anthony Wakefield MD [Primary Care Provider] - Disposition Disposition: Home, Self Care
--- NOTE | 2021-09-05 15:52 | CON.PCM.HO_ITS ---
Assessment & Plan Assessment/Plan (1) Heart failure with preserved ejection fraction: QUALIFIERS: Heart failure chronicity: acute Qualified Code(s): I50.31 - Acute diastolic (congestive) heart failure PLAN: Acute heart failure with preserved ejection fraction EF 60% from 2D echocardiogram from October 17, 2020. Patient is not hypoxic and does not appear to be in any distress Patient did receive IV furosemide in the emergency room Was going to discussed with patient about going home and taking Lasix but he actually volunteered that without my prompting. I feel it is very reasonable patient can go home. Patient has a follow-up appointment with cardiology this Friday that was already set up previously. I feel is appropriate for the patient to be discharged with furosemide 40 mg daily. We will also add potassium replacement at a low dose as well. And cardiology can determine if patient would require repeat echocardiogram. I did discuss the case with Dr. Escobar prior to my evaluating the patient. Patient is agreeable to going home and follow-up. Patient is doing all the right things but I feel that he likely had some dietary indiscretions on his recent road trip as he states that he has put on 9 pounds since his trip. (2) Supratherapeutic INR: PLAN: Hold of warfarin. No bleeding. Would recommend his warfarin being at 3 mg daily rather than every day except for 1 day where he takes 6 mg. Resume warfarin on the . PLAN: Plan Discharge home HPI Consult Data Date of Consult: 09/05/21 HPI Narrative Reason for Consultation: CHF HPI Narrative: CLEO MEZA, is a 81 M who presents with shortness of breath. Patient does have history of CAD and is typically very vigilant in regards to watching his diet and his weight. Typically he is very active and riding a bike and walking throughout the day. Patient recently got back from a trip to [place]. Patient has recognized that he has put on about 8 to 9 pounds during this time but he is short of breath with exertion. Patient presented to the emergency room and was not hypoxic but had chest x-ray that was showing CHF. Patient received IV furosemide and the hospitalist was contacted for admission for CHF. I spoke with the patient and he was wearing a KN 95 mask and his pulse ox was around 95% of the time he was speaking did not demonstrate any respiratory distress. [facility] Medical History Alcohol use Ankylosing spondylitis Anxiety Ascending aortic aneurysm Atelectasis BPH (benign prostatic hyperplasia) Cardiology follow-up encounter Cranial nerve palsy Diplopia Diverticulitis Dupuytren contracture Essential hypertension Former smoker Former smoker, stopped smoking many years ago High cholesterol History of atrial fibrillation History of echocardiogram History of irregular heartbeat History of stress test Hyperlipidemia senior care current use of anticoagulant Marijuana use Nonischemic cardiomyopathy Nonrheumatic aortic valve regurgitation Nonrheumatic mitral valve regurgitation Osteoarthritis Paroxysmal atrial fibrillation Pericardial effusion Postoperative atrial fibrillation Prostate disease Right bundle branch block and left anterior fascicular block Schatzki's ring Wears glasses Wears hearing aid Home Medications acetaminophen 325 mg tablet 650 mg PO QHS pain 06/02/19 [History Last Taken 09/04/21] aspirin 81 mg tablet,delayed release (Adult Aspirin Regimen) 81 mg PO DAILY 06/02/19 [History Last Taken 09/05/21] multivitamin 1 tab PO DAILY 06/02/19 [History Last Taken 09/05/21] warfarin 3 mg tablet 3 mg PO SUMOTUWEFRSA 08/03/19 [History Last Taken 09/03/21] melatonin 5 mg tablet 5 mg PO HS PRN Sleep 11/25/19 [History Last Taken 09/04/21] metoprolol tartrate 25 mg tablet 25 mg PO BID 11/25/19 [History Last Taken 09/05/21] trazodone 50 mg tablet 50 mg PO DAILY 11/25/19 [History Last Taken 09/04/21] rosuvastatin 5 mg tablet 5 mg PO DAILY cholesterol 03/23/20 [History Last Taken 09/04/21] tamsulosin 0.4 mg capsule 0.8 mg PO QHS 03/23/20 [History Last Taken 09/04/21] amiodarone 200 mg tablet 100 mg PO DAILY #45 tabs 04/09/21 [Rx Last Taken 09/05/21] furosemide 40 mg tablet 40 mg PO DAILY #30 tabs 09/05/21 [Rx Last Taken Unknown] potassium chloride 8 mEq capsule,extended release 8 meq PO DAILY #30 caps 09/05/21 [Rx Last Taken Unknown] Allergy/AdvReac Type Severity Reaction Status Date / Time citalopram AdvReac Intermediate GI upset Verified 09/05/21 12:29 lisinopril AdvReac Intermediate cough Verified 09/05/21 12:29 tramadol [From Ultram] AdvReac Intermediate vomiting Verified 09/05/21 12:29 oxycodone AdvReac Nausea Verified 09/05/21 12:29 Family History Father ETOH abuse Congestive heart failure Grandfather Gastric cancer Grandfather CVA (cerebral vascular accident) Diabetes CAD (coronary artery disease) Grandmother CVA (cerebral vascular accident) Surgical History H/O arthroscopic knee surgery H/O arthroscopic knee surgery H/O vasectomy History of aortic valve repair (01/13/19) History of cardiac catheterization History of cardioversion (04/02/19) History of right knee joint replacement History of right shoulder replacement Hx of ascending aorta replacement (01/13/19) Hx of mitral valve repair (01/13/19) Social History Smoking Status: Former smoker quit date: 10/23/70 pack-years: 15 alcohol intake: current alcohol intake frequency: a few times a week Alcohol type: beer and wine substance use type: marijuana and other details: uses for pain relief, sleep and anxiety ROS ROS Narrative Increased lower extremity edema. All review of systems were negative except as mentioned above in the history of present illness and the other review of systems. Physical Exam Const alert and no apparent distress HEENT normocephalic, head/scalp atraumatic, hearing grossly normal bilaterally and moist oral mucous membranes Neck no lymphadenopathy Resp Resp Narrative: Faint bibasilar crackles Cardio regular rate, regular rhythm, S1 normal heart sound and S2 normal heart sound GI normal to inspection, nondistended, normoactive bowel sounds, soft to palpation, non-tender and non-distended Extremity normal to inspection Neuro oriented x3 Psych affect normal Lab / Micro Data Result Diagrams: 09/05/21 12:50 09/05/21 12:50 Labs: Laboratory Results - last 24 hr 09/05/21 12:50: WBC 5.1, RBC 4.37 L, Hgb 12.3 L, Hct 38.9 L, MCV 89.0, MCH 28.1, MCHC 31.6 L, RDW Std Deviation 52.2 H, RDW Coeff of Efraín 15.9 H, Plt Count 148 L, MPV 10.6, Immature Gran % (Auto) 0.200, Neut % (Auto) 59.1, Lymph % (Auto) 23.3, [place] % (Auto) 15.4 H, Eos % (Auto) 1.8, Baso % (Auto) 0.2, Absolute Neuts (auto) 3.0, Absolute Lymphs (auto) 1.20, Nucleated RBC % 0 09/05/21 12:50: PT 40.1 H, INR 4.2 H* 09/05/21 12:50: Sodium 142, Potassium 4.9, Chloride 111 H, Carbon Dioxide 26.0, Anion Gap 5, BUN 22 H, Creatinine 0.96, Estim Creat Clear Calc 64.04, Est GFR (MDRD) Af Amer 97, Est GFR (MDRD) Non-Af 80, BUN/Creatinine Ratio 23.0 H, Glucose 96, Calcium 9.0, Troponin I High Sens 9 09/05/21 12:50: B-Natriuretic Peptide 496.6 H Micro: Microbiology 09/05/21 12:57 Nasal Secretion SARS-CoV-2 Antigen (Rapid) - Final Radiology Impression Chest X-Ray 09/05/21 12:56 IMPRESSION: Mild CHF. Electronically Signed: Norman Holloway MD at 13:35 EDT , Charges/Coding Visit Charges Office Visits / Consults: [id number] OP Consult L4
[2021-09-05 16:22] VITALS: BP 127/78; PULSE 78; RESP 16; TEMP 36.6; O2SAT 98
== END 2021-09-05 16:23 | disposition home or self-care (01) ==
PROVIDERS: Emergency Provider Emergency Medicine; PCP Family Medicine; Visit Provider Emergency Medicine
DX: I11.0 Hypertensive heart disease with heart failure (principal); I50.31 Acute diastolic (congestive) heart failure; I42.8 Other cardiomyopathies; I48.0 Paroxysmal atrial fibrillation; N40.0 Benign prostatic hyperplasia without lower urinary tract symptoms; R79.1 Abnormal coagulation profile; I25.10 Atherosclerotic heart disease of native coronary artery without angina pectoris; F12.90 Cannabis use, unspecified, uncomplicated; Z79.899 Other long term (current) drug therapy; Z79.82 Long term (current) use of aspirin; Z87.891 Personal history of nicotine dependence; Z79.01 Long term (current) use of anticoagulants
CPT/HCPCS: 71045; 80048; 83880; 84484; 85025; 85610; 87811; 93005; 96374; 99283; A4216; J1940

== ENCOUNTER → 2021-09-06 | Outpatient (CLI) | payer MEDICARE, SELFPAY ==
[2019-05-03 12:55] VITALS: BMI 22.8
[2021-09-06 10:42] LABS: Prothrombin Time (Protime)PT. 31.2 SECONDS (11.7-14.9)
== END | disposition home or self-care (01) ==
LOC: LABSPEC 10:19
PROVIDERS: PCP Family Medicine; Visit Provider Family Medicine
DX: I48.20 Chronic atrial fibrillation, unspecified (principal)
CPT/HCPCS: 85610

== ENCOUNTER → 2021-09-10 | Outpatient (CLI) | payer MEDICARE, SELFPAY ==
[2019-05-03 12:55] VITALS: BMI 22.8
[2021-09-10 11:41] LABS: Absolute Lymphocyte Count 0.79 X10^3/uL (0.83-4.51); Basophil# 0.01 X10^3/uL; Basophil% 0.2 % (0-1); Eosinophil# 0.06 X10^3/uL; Eosinophils% 1.3 % (0-5); Hemoglobin 12.1 g/dL (13.0-16.5); Lymphocyte # 0.79 X10^3/ul (0.83-4.51); Lymphocyte % 17.4 % (19-41); Mean Corp Hgb Conc 30.3 g/dL (32-36); Mean Corpuscular Hgb 27.3 pg (27.0-32.0); Mean Corpuscular Volume 90.3 fL (80-94); Monocyte# 0.67 X10^3/uL; Monocyte% 14.7 % (0-10); NRBC Flagged by Analyzer 0 % (0-5); Neutrophil # 2.98 X10^3/uL (2.7-7.7); Neutrophil % 65.5 % (47-70); Platelet Count 148 K/mm3 (150-450); RBC Distribution Width CV 15.8 % (11.6-14.6); RBC Distribution Width SD 51.8 fl (35.1-43.9); Red Blood Count 4.43 M/mm3 (4.6-6.2); White Blood Count 4.6 K/mm3 (4.4-11.0)
[2021-09-10 11:49] LABS: D-Dimer Quantitative (DVT/PE) 0.29 FEU/ug/m (0.27-0.49)
[2021-09-10 11:55] LABS: BNP,B-Type NATRIURETIC PEPTIDE 477.9 pg/mL (0-100)
[2021-09-10 12:03] LABS: Anion Gap 6 (5-15); BUN 27 mg/dL (7-18); BUN/Creat Ratio 28.4 RATIO (10-20); Calcium,Total 9.1 mg/dL (8.5-10.1); Chloride 106 mmol/L (98-107); Creatinine, Serum 0.95 mg/dL (0.70-1.30); EST Glomerular Filtration Rate 81 mL/min (>60); Est Glom Filt Rate - Afr Amer 98 mL/min (>60); Glucose 103 mg/dL (74-106); Potassium 4.3 mmol/L (3.5-5.1); Sodium Level 142 mmol/L (136-145)
== END | disposition home or self-care (01) ==
LOC: LAB 11:17
PROVIDERS: PCP Family Medicine; Visit Provider Nurse Practitioner Family
DX: I35.1 Nonrheumatic aortic (valve) insufficiency (principal); R06.02 Shortness of breath; Z86.79 Personal history of other diseases of the circulatory system; Z98.890 Other specified postprocedural states
CPT/HCPCS: 36415; 80048; 83880; 85025; 85379

== ENCOUNTER → 2021-09-27 | Outpatient (CLI) | payer MEDICARE, SELFPAY ==
[2019-05-03 12:55] VITALS: BMI 22.8
--- NOTE | 2021-09-27 13:51 | ECHOD_ITS ---
Reason For Study: Valve repair & replacement, SOB Procedure This was a 2D Doppler, Color Flow transthoracic echocardiogram. The exam was of adequate technical quality. Exam performed in department. Left Ventricle Normal LV size. Left ventricular systolic function is normal. The estimated ejection fraction is 60 %. Right Ventricle Moderately dilated right ventricle. Moderate global right ventricular systolic dysfunction. Atria The left atrium is mildly enlarged. Normal right atrium. No doppler evidence for ASD. Mitral Valve Anterior leaflet diffuse mitral valve thickening. Mild focal mitral valve calcification of the anterior leaflet. The mitral valve chordae are thickened and/or calcified. The mitral papillary muscle appears thickened and/or calcified. Mild mitral valve stenosis. An annuloplasty ring is noted in the mitral position. Trivial transvalvular insufficiency of the mitral valve. Tricuspid Valve Normal tricuspid valve. Mild to moderate (1-2+) eccentric tricuspid valve insufficiency. Right ventricular systolic pressure estimated to be 24 mmHg. Aortic Valve The aortic valve leaflets are not well visualized, however, based upon the 2D echocardiographic images obtained there appears to be thickening, calcification, and partial restriction. Mild aortic stenosis. Trivial eccentric aortic valve insufficiency. Pulmonic Valve The pulmonic valve is not well visualized. Mild (1+) pulmonic valve insufficiency. Great Vessels Borderline enlarged aortic root. Pericardium/Pleural Small pericardial effusion. There are no echocardiographic indications of cardiac tamponade. MMode/2D Measurements & Calculations LVIDd: 5.0 cm IVSd: 0.97 cm LVOT diam: 2.2 cm LVIDs: 3.2 cm LVPWd: 0.91 cm LVOT area: 4.0 cm2 RVDd: 4.2 cm FS: 36.5 % Ao root diam: 3.9 cm LAV(MOD-bp): 75.0 ml LA A4 area: 19.3 cm2 LAV(MOD-bp) Indexed: 39.6 ml/m2 LAV(MOD-sp2): 85.6 ml LAV(MOD-sp4): 56.7 ml RA A4 area: 18.6 cm2 Time Measurements MV dec time: 0.21 sec Doppler Measurements & Calculations MV E max richard: 148.6 cm/sec Lat Peak E' Richard: 6.7 cm/sec Med Peak E' Richard: 5.6 cm/sec MV A max richard: 59.5 cm/sec E/E' lat: 22.1 E/E' med: 26.7 MV E/A: 2.5 MV V2 max: 158.0 cm/sec MV P1/2t max richard: 155.3 cm/sec Ao V2 max: 177.9 cm/sec MV max P.0 mmHg MV P1/2t: 64.7 msec Ao max P.7 mmHg MV V2 mean: 66.7 cm/sec MV dec slope: 703.7 cm/sec2 Ao V2 mean: 118.8 cm/sec MV mean P.4 mmHg Ao mean P.5 mmHg MV V2 VTI: 31.8 cm MVA(P1/2t): 3.4 cm2 Ao V2 VTI: 33.0 cm MVA(VTI): 2.1 cm2 CONSTANCE(I,D): 2.0 cm2 CONSTANCE(V,D): 1.9 cm2 LV V1 max: 84.4 cm/sec SV(LVOT): 65.7 ml PA V2 max: 90.5 cm/sec LV V1 max P.9 mmHg LV V1 mean P.4 mmHg LV V1 mean: 56.1 cm/sec LV V1 VTI: 16.6 cm TR max richard: 226.7 cm/sec TR max P.7 mmHg ECHO/Echo Complete Interpretation Summary Left ventricular systolic function is normal. The estimated ejection fraction is 60 %. Moderately dilated right ventricle. Moderate global right ventricular systolic dysfunction. The left atrium is mildly enlarged. An annuloplasty ring is noted in the mitral position. Anterior leaflet diffuse mitral valve thickening. Mild focal mitral valve calcification of the anterior leaflet. The mitral valve chordae are thickened and/or calcified. The mitral papillary muscle appears thickened and/or calcified. Trivial transvalvular insufficiency of the mitral valve. Mild to moderate (1-2+) eccentric tricuspid valve insufficiency. The aortic valve leaflets are not well visualized, however, based upon the 2D e chocardiographic images obtained there appears to be thickening, calcification, and partial rest riction. Mild aortic stenosis. Trivial eccentric aortic valve insufficiency. Mild (1+) pulmonic valve insufficiency. Borderline enlarged aortic root. Small pericardial effusion. There are no echocardiographic indications of cardiac tamponade. Right ventricular systolic pressure estimated to be 24 mmHg. Transmitral diastolic flow velocities suggest diastolic dysfunction (pseudonorm al pattern). Ordering Physician: Shahzad Fischer Referring Physician: Zia Wakefield Performed By: Zainab Muller RDCS, RVT
== END | disposition home or self-care (01) ==
LOC: CVS 13:46
PROVIDERS: PCP Family Medicine; Referring Provider Nurse Practitioner Family; Visit Provider Nurse Practitioner Family
DX: R06.02 Shortness of breath (principal); I35.1 Nonrheumatic aortic (valve) insufficiency; Z98.890 Other specified postprocedural states; Z86.79 Personal history of other diseases of the circulatory system
CPT/HCPCS: 93306

== ENCOUNTER 2022-06-14 16:25 | Emergency (ER) | payer MEDICARE, SELFPAY ==
[2019-05-03 12:55] VITALS: BMI 22.8
[2022-06-14 16:27] VITALS: BP 127/67; PULSE 63; RESP 18; TEMP 35.7; O2SAT 97; BMI 21.6
[2022-06-14 17:05] VITALS: O2SAT 97
--- NOTE | 2022-06-14 17:09 | EDS_ITS ---
HPI History of Present Illness Chief Complaint: Cough PFSH PFSH Medical History Alcohol use Ankylosing spondylitis Anxiety Ascending aortic aneurysm Atelectasis BPH (benign prostatic hyperplasia) Cardiology follow-up encounter Cranial nerve palsy Diplopia Diverticulitis Dupuytren contracture Essential hypertension Former smoker Former smoker, stopped smoking many years ago High cholesterol History of atrial fibrillation History of echocardiogram History of irregular heartbeat History of stress test Hyperlipidemia long term care administrator current use of anticoagulant Marijuana use Nonischemic cardiomyopathy Nonrheumatic aortic valve regurgitation Nonrheumatic mitral valve regurgitation Osteoarthritis Paroxysmal atrial fibrillation Pericardial effusion Postoperative atrial fibrillation Prostate disease Right bundle branch block and left anterior fascicular block Schatzki's ring Wears glasses Wears hearing aid Home Medications aspirin 81 mg tablet,delayed release (Adult Aspirin Regimen) 81 mg PO DAILY 06/02/19 [History Last Taken 09/05/21] multivitamin 1 tab PO DAILY 06/02/19 [History Last Taken 09/05/21] melatonin 5 mg tablet 5 mg PO HS PRN Sleep 11/25/19 [History Last Taken 09/04/21] metoprolol tartrate 25 mg tablet 25 mg PO BID 11/25/19 [History Last Taken 09/05/21] trazodone 50 mg tablet 50 mg PO DAILY 11/25/19 [History Last Taken 09/04/21] rosuvastatin 5 mg tablet 5 mg PO DAILY cholesterol 03/23/20 [History Last Taken 09/04/21] tamsulosin 0.4 mg capsule 0.8 mg PO QHS 03/23/20 [History Last Taken 09/04/21] acetaminophen 325 mg tablet 650 mg PO Q4H PRN pain 09/10/21 [History Last Taken Unknown] warfarin 3 mg tablet 3 mg PO .COMPLEX 09/10/21 [History Last Taken Unknown] Handicap Placard #1 ea 10/01/21 [Rx Last Taken Unknown] amiodarone 200 mg tablet 100 mg PO DAILY #45 tabs 03/05/22 [Rx Last Taken Unknown] Allergy/AdvReac Type Severity Reaction Status Date / Time No Known Allergies Allergy Verified 06/14/22 16:27 Family History Father ETOH abuse Congestive heart failure Grandfather Gastric cancer Grandfather CVA (cerebral vascular accident) Diabetes CAD (coronary artery disease) Grandmother CVA (cerebral vascular accident) Surgical History H/O arthroscopic knee surgery H/O arthroscopic knee surgery H/O vasectomy History of aortic valve repair (01/13/19) History of cardiac catheterization History of cardioversion (04/02/19) History of right knee joint replacement History of right shoulder replacement Hx of ascending aorta replacement (01/13/19) Hx of mitral valve repair (01/13/19) Social History Smoking Status: Former smoker quit date: 10/23/70 pack-years: 15 alcohol intake: current alcohol intake frequency: 0-2 drinks per day Alcohol type: beer and wine substance use type: marijuana and other details: uses for pain relief, sleep and anxiety, Hasn't used in awhile. caffeine: No EXAM Physical Exam Const Vital Signs: 06/14/22 16:27 Temperature 96.2 F L Temperature Source Temporal Pulse Rate 63 Respiratory Rate 18 Blood Pressure 127/67 H Blood Pressure Mean 87 Pulse Ox 97 Oxygen Delivery Method Room Air Discharge Plan Triage Chief Complaint: Cough ED Provider: Shubham Banda Dx/Rx/DC Orders Prescriptions: No Action aspirin [Adult Aspirin Regimen] 81 mg tablet,delayed release (DR/EC) 81 mg PO DAILY multivitamin Tablet 1 tab PO DAILY trazodone 50 mg tablet 50 mg PO DAILY acetaminophen 325 mg tablet 650 mg PO Q4H PRN (Reason: pain) warfarin 3 mg tablet 3 mg PO .COMPLEX Hold Instructions: Resume on 09/07/21. Rx Instructions: 3 mg orally Take 4 1/2 mg on and 3 mg all other days. Managed by PCP tamsulosin 0.4 mg capsule 0.8 mg PO QHS rosuvastatin 5 mg tablet 5 mg PO DAILY melatonin 5 mg tablet 5 mg PO HS PRN (Reason: Sleep) metoprolol tartrate 25 mg tablet 25 mg PO BID (DME) Handicap Placard See Rx Instructions .Route .MEDSUPPLY Qty: 1 0RF Rx Instructions: Good from 10/01/2021-10/01/2026; amiodarone 200 mg tablet 100 mg PO DAILY Qty: 45 3RF Primary Care Provider: Anthony Wakefield Referrals: Anthony Wakefield MD [Primary Care Provider] -
--- NOTE | 2022-06-14 17:11 | ED.VIS.DYS ---
HPI History of Present Illness Chief Complaint: Cough Narrative Narrative: 82-year-old male here with cough. Patient endorses 1 week of pink-tinged sputum and 2 days of lashell hemoptysis. Patient states his tourist information officer sent him to the emergency department for further evaluation. Patient denies chest pain or shortness of breath. Denies any recent sick contacts or illnesses. Notes INR checked today and was 2.3. [facility] Medical History Alcohol use Ankylosing spondylitis Anxiety Ascending aortic aneurysm Atelectasis BPH (benign prostatic hyperplasia) Cardiology follow-up encounter Cranial nerve palsy Diplopia Diverticulitis Dupuytren contracture Essential hypertension Former smoker Former smoker, stopped smoking many years ago High cholesterol History of atrial fibrillation History of echocardiogram History of irregular heartbeat History of stress test Hyperlipidemia senior living current use of anticoagulant Marijuana use Nonischemic cardiomyopathy Nonrheumatic aortic valve regurgitation Nonrheumatic mitral valve regurgitation Osteoarthritis Paroxysmal atrial fibrillation Pericardial effusion Postoperative atrial fibrillation Prostate disease Right bundle branch block and left anterior fascicular block Schatzki's ring Wears glasses Wears hearing aid Home Medications aspirin 81 mg tablet,delayed release (Adult Aspirin Regimen) 81 mg PO DAILY 06/02/19 [History Last Taken 09/05/21] multivitamin 1 tab PO DAILY 06/02/19 [History Last Taken 09/05/21] melatonin 5 mg tablet 5 mg PO HS PRN Sleep 11/25/19 [History Last Taken 09/04/21] metoprolol tartrate 25 mg tablet 25 mg PO BID 11/25/19 [History Last Taken 09/05/21] trazodone 50 mg tablet 50 mg PO DAILY 11/25/19 [History Last Taken 09/04/21] rosuvastatin 5 mg tablet 5 mg PO DAILY cholesterol 03/23/20 [History Last Taken 09/04/21] tamsulosin 0.4 mg capsule 0.4 mg PO QHS 03/23/20 [History Last Taken 09/04/21] acetaminophen 325 mg tablet 650 mg PO Q4H PRN pain 09/10/21 [History Last Taken Unknown] warfarin 3 mg tablet 3 mg PO .COMPLEX 09/10/21 [History Last Taken Unknown] Handicap Placard #1 ea 10/01/21 [Rx Last Taken Unknown] amiodarone 200 mg tablet 100 mg PO DAILY #45 tabs 03/05/22 [Rx Last Taken Unknown] Allergy/AdvReac Type Severity Reaction Status Date / Time No Known Allergies Allergy Verified 06/14/22 16:27 Family History Father ETOH abuse Congestive heart failure Grandfather Gastric cancer Grandfather CVA (cerebral vascular accident) Diabetes CAD (coronary artery disease) Grandmother CVA (cerebral vascular accident) Surgical History H/O arthroscopic knee surgery H/O arthroscopic knee surgery H/O vasectomy History of aortic valve repair (01/13/19) History of cardiac catheterization History of cardioversion (04/02/19) History of right knee joint replacement History of right shoulder replacement Hx of ascending aorta replacement (01/13/19) Hx of mitral valve repair (01/13/19) Social History Smoking Status: Former smoker quit date: 10/23/70 pack-years: 15 alcohol intake: current alcohol intake frequency: 0-2 drinks per day Alcohol type: beer and wine substance use type: marijuana and other details: uses for pain relief, sleep and anxiety, Hasn't used in awhile. caffeine: No ROS ROS ED ROS Narrative Constitutional: Denies fever HEENT: Denies sore throat Neck: Denies neck pain Cardiovascular: Denies chest pain, syncope Respiratory: Endorses hemoptysis GI: Denies nausea vomiting or abdominal pain : Denies changes in urinary habits Musculoskeletal: Denies muscle or joint pain Neurologic: Denies numbness weakness or loss of sensation Skin denies rash EXAM Physical Exam Narrative Exam Narrative: Nursing triage notes reviewed, Vital signs reviewed Constitutional: please see mdm HENT: MMM Eyes: Pupils equal round and reactive to light, Extraocular muscles intact Neck: No stridor, no JVD, full neck ROM Lungs: Clear to auscultation, No wheezing or rales. No increased work of breathing, no conversational dyspnea, no accessory muscle use, no nasal flaring. No respiratory distress noted Heart: Regular rate and rhythm, No murmurs, No rubs and No gallops, 2+ distal pulses (radial, femoral, posterior tibial) in all extremities Abdomen: Soft, there is no tenderness, rigidity, rebound or guarding, no obvious peritoneal signs, no palpable pulsatile abdominal masses, no auscultated abdominal bruit : No CVAT Extremities: No edema Neuro: No focal neurological deficits, cranial nerves II through XII intact, 5/5 strength in all extremities. Intact sensation to light touch in all extremities, 2+ reflexes bilateral patella dens. Normal gait. No ataxia. Skin: No rash or lesions noted Const Vital Signs: 06/14/22 16:27 06/14/22 17:05 06/14/22 18:20 Temperature 96.2 F L Temperature Source Temporal Pulse Rate 63 54 L Respiratory Rate 18 14 Respiratory Effort Normal Non-Labored Respiratory Depth Normal Respiratory Pattern Normal Blood Pressure 127/67 H 129/75 H Blood Pressure Mean 87 93 Pulse Ox 97 97 Oxygen Delivery Method Room Air Room Air Room Air MDM MDM MDM Narrative Medical decision making narrative: Chief Complaint: Hemoptysis External records reviewed: Patient currently on warfarin, last ED visit in August 2021 for acute CHF exacerbation I considered the following differential diagnosis: PE, AVM, pneumonia, lung cancer, COVID-19 The patient was hemodynamically stable, afebrile, nontoxic-appearing. I obtained a broad lab and imaging work-up to further elucidate the etiology the patient's complaints. COVID, flu test were negative. CBC without significant anemia, there was thrombocytopenia noted but no leukocytosis, BMP without significant electrolyte abnormalities or anion gap. Low suspicion for supratherapeutic INR given the patient's INR was checked today was 2.3. Troponin was negative. BNP was elevated concerning for volume overload. CT scan of the chest shows no evidence of pulmonary embolism but does show small bilateral pleural effusions. Does show evidence of possible esophagitis which is likely not contributory. He had no significant anemia and as such no indication for hospitalization at this time he will be discharged with close follow-up with his tourist information officer. Factors affecting care: On warfarin for atrial fibrillation, history of CHF, aortic valve replacement Social determinants of health: Elderly History obtained from others: The patient's Shared decision making: I will have a discussion with the patient and or visitors regarding risk/benefits of further testing or admission. They will be made aware of of the risk/benefits inherent in this decision they will be given the opportunity to voice understanding. Consults: None History & Record Review Discussion w/independent historian: Family Lab Data Attestation: I reviewed the patient's lab results. Labs: Laboratory Results - last 24 hr 06/14/22 06/14/22 06/14/22 18:10 18:10 18:10 WBC 5.0 RBC 3.76 L Hgb 11.2 L Hct 35.1 L MCV 93.4 MCH 29.8 MCHC 31.9 L RDW Std Deviation 52.3 H RDW Coeff of Efraín 15.1 H Plt Count 117 L MPV 10.9 Immature Gran % (Auto) 0.400 Neut % (Auto) 59.2 Lymph % (Auto) 25.4 [place] % (Auto) 12.6 H Eos % (Auto) 2.2 Baso % (Auto) 0.2 Absolute Neuts (auto) 3.0 Absolute Lymphs (auto) 1.27 Nucleated RBC % 0 Sodium 137 Potassium 4.4 Chloride 108 H Carbon Dioxide 26.0 Anion Gap 3 L BUN 24 H Creatinine 0.98 Estim Creat Clear Calc 57.79 Est GFR (MDRD) Af Amer 94 Est GFR (MDRD) Non-Af 78 BUN/Creatinine Ratio 24.5 H Glucose 88 Calcium 9.1 Troponin I High Sens 5 B-Natriuretic Peptide 591.7 H Radiography Diagnostic Testing: Clinical Impression(s) from Imaging Studies Chest CTA 06/14/22 17:47 IMPRESSION: 1. Small bilateral pleural effusions with overlying atelectasis. Small secretion in the left main bronchus. 2. Diffuse esophageal wall thickening. Consider esophagitis. 3. No demonstrated pulmonary embolism or arterial dissection. Electronically Signed: Raimundo Mayers MD at 19:35 EDT , EKG Initial EKG: Attestation: I personally reviewed and interpreted this EKG as follows: Comments: EKG with normal sinus rhythm, left axis deviation, right bundle branch block, no obvious STEMI. No significant changes from prior EKG in August 2021 Discharge Plan Triage Chief Complaint: Cough ED Provider: Shubham Banda Dx/Rx/DC Orders Clinical Impression: Hemoptysis, Bradycardia, sinus Instructions: ED Hemoptysis Prescriptions: No Action aspirin [Adult Aspirin Regimen] 81 mg tablet,delayed release (DR/EC) 81 mg PO DAILY multivitamin Tablet 1 tab PO DAILY trazodone 50 mg tablet 50 mg PO DAILY acetaminophen 325 mg tablet 650 mg PO Q4H PRN (Reason: pain) warfarin 3 mg tablet 3 mg PO .COMPLEX Hold Instructions: Resume on 09/07/21. Rx Instructions: 3 mg orally Take 4 1/2 mg on SAT AND SUN, and 3 mg all other days. Managed by PCP tamsulosin 0.4 mg capsule 0.4 mg PO QHS rosuvastatin 5 mg tablet 5 mg PO DAILY melatonin 5 mg tablet 5 mg PO HS PRN (Reason: Sleep) metoprolol tartrate 25 mg tablet 25 mg PO BID (DME) Handicap Placard See Rx Instructions .Route .MEDSUPPLY Qty: 1 0RF Rx Instructions: Good from 10/01/2021-10/01/2026; amiodarone 200 mg tablet 100 mg PO DAILY Qty: 45 3RF Primary Care Provider: Anthony Wakefield Referrals: Anthony Wakefield MD [Primary Care Provider] - Disposition Disposition: Home, Self Care Discharge Date/Time: 06/14/22 21:26
--- NOTE | 2022-06-14 17:47 | CT_ITS ---
STUDY: CTA CHEST REASON FOR EXAM: Male, 82 years old. Hemoptysis RADIATION DOSAGE (If Supplied By Facility): CTDIvol = ( 14.19 ) mGy, DLP = ( 342.90 ) mGycm TECHNIQUE: The examination was performed with the intravenous administration of IV 100mL Isovue-370. Post-processing of the angiographic images was performed, with multiplanar reformation and 3D reconstruction. Individualized dose optimization techniques were used for this CT. COMPARISON: 09/05/2021 chest x-ray FINDINGS: Normal enhancement of the main pulmonary artery and right and left pulmonary arteries. Normal enhancement of the bilateral peripheral pulmonary arteries. There is no demonstrated pulmonary embolism. Normal thoracic aorta and visualized great vessels. There is no demonstrated aortic dissection. Normal heart and pericardium. Diffuse esophageal wall thickening. Normal hilar regions. Small secretion in the left main bronchus. The lungs are well expanded. Normal pulmonary parenchyma. Small bilateral pleural effusions with overlying atelectasis. Prominent right axillary lymph nodes may be related to right shoulder surgeries. There are degenerative changes of thoracic spine. No acute abnormal finding in the visualized upper abdomen. CT/CTA Chest W/WO Contrast IMPRESSION: 1. Small bilateral pleural effusions with overlying atelectasis. Small secretion in the left main bronchus. 2. Diffuse esophageal wall thickening. Consider esophagitis. 3. No demonstrated pulmonary embolism or arterial dissection. Electronically Signed: Raimundo Mayers MD at 19:35 EDT ,
--- NOTE | 2022-06-14 17:48 | EKG12_ITS ---
Test Reason : COUGH Blood Pressure : / mmHG Vent. Rate : 056 BPM Atrial Rate : 056 BPM P-R Int : 230 ms QRS Dur : 172 ms QT Int : 494 ms P-R-T Axes : 038 -68 -28 degrees QTc Int : 476 ms Sinus bradycardia with 1st degree A-V block Left axis deviation Right bundle branch block Septal infarct , age undetermined T wave abnormality, consider lateral ischemia Abnormal ECG Confirmed by YUE PIERRE ([id number]), material expeditor YUVAL FITZGERALD ([id number]) on 06/18/2022 7:53:52 AM Referred By: Confirmed By:YUE PIERRE
[2022-06-14 18:14] LABS: Absolute Lymphocyte Count 1.27 X10^3/uL (0.83-4.51); Basophil# 0.01 X10^3/uL; Basophil% 0.2 % (0-1); Eosinophil# 0.11 X10^3/uL; Eosinophils% 2.2 % (0-5); Hematocrit 35.1 % (40-54); Hemoglobin 11.2 g/dL (13.0-16.5); Lymphocyte # 1.27 X10^3/ul (0.83-4.51); Lymphocyte % 25.4 % (19-41); Mean Corp Hgb Conc 31.9 g/dL (32-36); Mean Corpuscular Hgb 29.8 pg (27.0-32.0); Mean Corpuscular Volume 93.4 fL (80-94); Mean Platelet Vol. 10.9 fl (6.2-12.0); Monocyte# 0.63 X10^3/uL; Monocyte% 12.6 % (0-10); NRBC Flagged by Analyzer 0 % (0-5); Neutrophil # 2.96 X10^3/uL (2.7-7.7); Neutrophil % 59.2 % (47-70); Platelet Count 117 K/mm3 (150-450); RBC Distribution Width CV 15.1 % (11.6-14.6); RBC Distribution Width SD 52.3 fl (35.1-43.9); Red Blood Count 3.76 M/mm3 (4.6-6.2)
[2022-06-14 18:20] VITALS: BP 129/75; PULSE 54; RESP 14; O2SAT 97
[2022-06-14 18:32] LABS: Anion Gap 3 (5-15); BUN 24 mg/dL (7-18); BUN/Creat Ratio 24.5 RATIO (10-20); Calcium,Total 9.1 mg/dL (8.5-10.1); Chloride 108 mmol/L (98-107); Creatinine, Serum 0.98 mg/dL (0.70-1.30); EST Glomerular Filtration Rate 78 mL/min (>60); Est Glom Filt Rate - Afr Amer 94 mL/min (>60); Estimated Creatinine Clearance 57.79 ml/min; Glucose 88 mg/dL (74-106); Potassium 4.4 mmol/L (3.5-5.1); Sodium Level 137 mmol/L (136-145); Troponin-I HS 5 pg/mL (3.0-78.0)
[2022-06-14 18:36] LABS: BNP,B-Type NATRIURETIC PEPTIDE 591.7 pg/mL (0-100)
== END 2022-06-14 21:26 | disposition home or self-care (01) ==
PROVIDERS: Emergency Provider Emergency Medicine; PCP Family Medicine; Visit Provider Emergency Medicine
DX: R04.2 Hemoptysis (principal); I11.0 Hypertensive heart disease with heart failure; I50.9 Heart failure, unspecified; I48.0 Paroxysmal atrial fibrillation; D69.6 Thrombocytopenia, unspecified; R00.1 Bradycardia, unspecified; Z87.891 Personal history of nicotine dependence; E78.00 Pure hypercholesterolemia, unspecified; Z20.822 Contact with and (suspected) exposure to COVID-19; Z79.01 Long term (current) use of anticoagulants
CPT/HCPCS: 71275; 80048; 83880; 84484; 85025; 87428; 93005; 99284; Q9967; A4216

== ENCOUNTER → 2022-09-04 | Outpatient (CLI) | payer MEDICARE, SELFPAY ==
[2019-05-03 12:55] VITALS: BMI 22.8
--- NOTE | 2022-09-04 13:30 | RAD_ITS ---
INDICATION: Radiculopathy, cervical region EXAMINATION/TECHNIQUE: X-RAY - XR Spine Cervical 2 or 3 Views COMPARISON: FINDINGS: The vertebral bodies are normal height. No definite fracture demonstrated. No subluxation. C1-2 alignment is maintained. Disc space narrowing with osteophytes most pronounced C4-C7. Facet arthropathy C3-4 to C5-6. Prevertebral soft tissues appear unremarkable. Sternal wires. RAD/Cerv Spine 2 or 3 Views IMPRESSION: Degenerative discogenic disease and facet arthropathy. No evidence of fracture. Electronically Signed: Anne Arenas MD at 23:58 EDT ,
== END | disposition home or self-care (01) ==
LOC: RAD 13:23
PROVIDERS: PCP Family Medicine; Referring Provider Anesthesiology Pain Medicine; Visit Provider Anesthesiology Pain Medicine
DX: M54.12 Radiculopathy, cervical region (principal)
CPT/HCPCS: 72040

== ENCOUNTER 2022-09-16 10:30 | Outpatient (RCR) | payer MEDICARE, SELFPAY ==
[2019-05-03 12:55] VITALS: BMI 22.8
--- NOTE | 2022-07-04 15:29 | HP.PTEVAL ---
Patient's Visit Information CLEO MEZA is a 82 year old M referred to Physical Therapy by PEDRO PABLO ESQUIVEL with a diagnosis of R shoulder pain with antibiotic spacer. Date of Evaluation: 07/04/22 Physical Therapist: Owen Andersen DPT - Visit Plan Frequency: 2x /Week Duration: 3 Months Plan: 1. Phase 1 stretching: (pendulums, supine fwrd flexion, supine ER- progress to HEP)- patient completing at home. Add in shahid motions- Pt. to purchase shahid. 2. Phase II stretching (IR stretch, cross body add, extension) progress to HEP. 3. Phase 1 strengthening (IR, ER, extension), scapular strengthening- progress to HEP. 4. Add in phase II strengthening ( scapular abd, FF, ER at 45deg,) Add this phase when green band is being complete for all phase I. Add in manual resistance for cuff and deltoid, continue with scapular strengthening. - Subjective Pt. is here today for his initial evaluation with diagnosis R shoulder pain with antibiotic spacer. 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 He they had an infection in his shoulder and had the prosthetic taken removed and an antibiotic spacer place in stead. This surgery was on 04/05/22. He saw his physician last week and decided to not have another surgery to replace the joint, but would like to work on strengthening instead. He has been doing some home exercises including some wand exercises and pendulums. Pt. is to follow up with physician in Nov. to determine progress and how to proceed if needed. Pt. reports being able to do his self care at home, and drive, but is having difficulty with lifting anything and has limited OH motions. Pt. is hopeful to increase ROM and strength in order to get back to all functional use of R UE. - Pain R shoulder Pain Intensity (Out of 10): 1 Pain Intensity Range: 0, 4 - Objective POSTURE: Pt. has fairly normal posture. Pt. has slight anterior R shoulder. PALPATION: Pt. has well healed incision. Pt. has tenderness at anterior shoulder on R side. NEURO: pt. has normal sensation and normal DTR of BUEs. ROM: L shoulder: close to full L shoulder ROM without increase in symptoms. R shoulder: PROM: flexion 110deg, abd 70deg, ER at side 30deg. AROM: flexion 65deg, abd 50deg, functional IR gluteal region, functional ER ear aberrant motion noted. MMT: LUE: 5-/5 throughout. RUE: elbow 4/5 throughout; shoulder: flexion 3/5, abd 3/5, ext 4/5, ER 3-/5, IR 4/5. Pt. had mild increase in symptoms with flexion, abd and ER motions. - Balance/Special Test Scores Quick DASH Score: [phone] - Goals Goal 1:: LTG: Pt. to be I with HEP. Goal Time Frame: 4-6 Weeks Goal 2:: LTG: Pt. to have increased R shoulder ROM to at least 50% of full active motion. Goal Time Frame: 4-6 Weeks Goal 3:: LTG: pt. to have increased RUE strength by 1/2 grade throughout allowing for increased functional use. Goal Time Frame: 6-8 Weeks Goal 4:: LTG: Pt. to complete all daily activities without increase in symptoms and with increased functional use of RUE. Goal Time Frame: 6-8 Weeks - Rehabilitation Potential Physical Therapy Diagnosis: Pt. has signs and symptoms consistent with R shoulder pain with antibiotic spacer. Pt. has marked weakness, limited ROM and decreased functional us of his R shoulder and would benefit from PT to work on the above limitations. Rehabilitation Potential: Good - Anticipated Interventions Patient/Client Instruction: Educate patient on: Condition, Plan of Care, Risk Factors, Benefits of Fitness Program For the Purpose of:: To improve decision making, To facilitate caregiver knowledge, To improve self management, To prevent re-injury, To improve ability to perform tasks related to life management, To improve tolerance to ADL's Therapeutic Exercise to Include: Strength training, Power training, Endurance training, Flexibilty training, Passive ROM, Active ROM For the Purpose of:: To decrease pain, To increase ROM, To improve nutrient delivery to tissue, To increase oxygenation perfusion, To improve muscle performance and motor function, To improve ability to perform ADL's, To improve gait and locomotor functions, To improve health of tissue, To decrease soft tissue restriction, To increase flexibility/ROM Manual Therapy Techniques to Include: Passive ROM For the Purpose of:: To decrease pain, To increase ROM, To improve nutrient delivery to tissue, To increase oxygenation perfusion, To improve muscle performance and motor function Cryotherapy (ice pack, ice massage): Yes For the Purpose of:: To decrease pain, To increase ROM Thank you for the opportunity to evaluate your patient. For Medicare and Medicare HMO plans, please review the plan of care and approve it. It will need to be FAXED BACK to us at [phone] for Medicare purposes. For Medicare only, by signing this I certify the plan of care. Please let me know if there are questions or concerns regarding this plan of care. Physician Signature: Date:
--- NOTE | 2022-08-05 14:35 | HP.PTREVAL_ITS ---
PEDRO PABLO ESQUIVEL, It has been my pleasure to treat CLEO MEZA over the last 9 visits for R shoulder pain with antibiotic spacer. Please see the progress note below for an update on the physical therapy plan of care! Subjective: Pt. reports overall improving, but slowly. Pt. reports being 30% better. He is doing better, but slowly. He reports being HEP compliant without issues. Objective/Function: ROM: AROM: flexion 75, abd 65deg, functional ER C2 difficulty getting there. Functional IR L3 mild increase NW. PROM: flexion 1 10deg, abd 90deg, ER at side 30deg. MMT: LUE 5/5 throughout. RUE: flexion 3+/5, abd 3/5, ext 4+/5, IR 4/5, ER 3+/5. He is slowly progressing with his AROM and with his strength. He is going on vacation for 2 weeks. He is to continue with his HEP. We will have him come back to continue with progressing his strengthening Plan Plan: Protocol as follows (copy in the folder) -. 1. Phase I stretching: (pendulums, supine fwd flexion and ER, pulleys) - ALL HEP. 2. Phase II stretching: (standing IR, cross body add stretch, extension stretching) - ALL HEP. 3. Phase I strengthening: scapular strengthening (mid row and bilat LAE - with GTB already HEP) - Shld IR and ER - progress to HEP when able. 4. Phase II strengthening (scaption, FF, ER at 45deg,) Add this phase when green band is being complete for all phase I. Add in manual resistance for cuff and deltoid, continue with scapular strengthening. He is currently mid row, shoulder Ext with GTB, IR with orange, ER with yellow or in SL with 1# wt. Balance/Gait/Functional tests - Balance/Special Test Scores Quick DASH Score: 40.9075 Goals Goal 1:: LTG: Pt. to be I with HEP. Goal Time Frame: 4-6 Weeks Goal Progress: Progressing Goal 2:: LTG: Pt. to have increased R shoulder ROM to at least 50% of full active motion. Goal Time Frame: 4-6 Weeks Goal Progress: Progressing Goal 3:: LTG: pt. to have increased RUE strength by 1/2 grade throughout allowing for increased functional use. Goal Time Frame: 6-8 Weeks Goal Progress: Progressing Goal 4:: LTG: Pt. to complete all daily activities without increase in symptoms and with increased functional use of RUE. Goal Time Frame: 6-8 Weeks Goal Progress: Progressing Anticipated Interventions Patient/Client Instruction: Educate patient on: Condition, Plan of Care, Risk Factors, Benefits of Fitness Program For the Purpose of:: To improve decision making, To facilitate caregiver knowledge, To improve self management, To prevent re-injury, To improve ability to perform tasks related to life management, To improve tolerance to ADL's Therapeutic Exercise to Include: Strength training, Power training, Endurance training, Flexibilty training, Passive ROM, Active ROM For the Purpose of:: To decrease pain, To increase ROM, To improve nutrient delivery to tissue, To increase oxygenation perfusion, To improve muscle performance and motor function, To improve ability to perform ADL's, To improve gait and locomotor functions, To improve health of tissue, To decrease soft tissue restriction, To increase flexibility/ROM Manual Therapy Techniques to Include: Passive ROM For the Purpose of:: To decrease pain, To increase ROM, To improve nutrient delivery to tissue, To increase oxygenation perfusion, To improve muscle performance and motor function Cryotherapy (ice pack, ice massage): Yes For the Purpose of:: To decrease pain, To increase ROM Please do not hesitate to contact me at [phone] by phone or if you have questions or concerns regarding this new plan of care! Sincerely, Owen Andersen DPT
--- NOTE | 2022-09-11 09:51 | HP.PTEVAL2_ITS ---
Patient's Visit Information Visit Information Visit Information: CLEO MEZA is a 82 year old M referred to Physical Therapy by PEDRO PABLO ESQUIVEL with a diagnosis of high risk for falls and fall in home. Date of Evaluation: 09/10/22 Physical Therapist: Owen Andersen DPT Visit Plan Frequency: 1x/Week Duration: 1 Week Plan: Pt. to be DC from PT for his balance at this point in time. I did recomm end that he continue to stay active with walking in order to up keep his BLE strength. Subjective Subjective: Pt. is here today for his evaluation with diagnosis of at high risk for falls and fall in home. Pt. reports ~1 month ago he had two falls. Once he tripped over an object in his home and the other time he reports having two glasses of wine, got up and fell after losing his balance. He reports no falls since. Pt. denies dizziness or injuries due to this, but did have some bruising, now gone. Pt. does not use an AD and reports no issues with his balance since. I jsut need to be more careful. Pt. does walk, but no formal exercise for his balance. Pt. is denies blurred vision and no reported signs of vestibular issues. Pt. is hopeful to be evaluated, but reports being unsure if he needs any balance exercises currently. Objective Objective: POSTURE: Pt. has decent posture in stance. Slight rounded shoulders, but normal wt. shift with normal MARKO noted. PALPATION: Pt. has no pain with palpation of BLEs. NEURO: pt. has normal sensation in BLEs. Normal DTR of BLEs. ROM: pt. has decent ankle ROM and B knee and hip as well. SLight tightness with B HS, but minor. MMT: Pt. has 5/5 strength throughout BLEs without reports of issues. GAIT: Pt. has good gait pattern without signs of abnormality. STAIRS: normal without use of HR. Balance/Special Gait Scores Functional Gait Assessment Score: 29 % Disability: 3.3400 CATSIB Score (Max score 120 seconds): 99 TUG Test Time Seconds: 9.3 30 Second Chair Rise Test Seconds: 16 Rehabilitation Potential Physical Therapy Diagnosis: Pt. overall did very well with testing this date. I did not see the need for PT with focus on balance at this point in time. He did not demonstrate a risk for future falls. I did talk to him about keeping home clutter free and being attentive with his mobility in and out of home. Rehabilitation Potential: Excellent Anticipated Interventions Patient/Client Instruction: Educate patient on: Condition, Plan of Care, Risk Factors and Benefits of Fitness Program For the Purpose of:: To foster healthy habits, To improve decision making, To facilitate caregiver knowledge, To improve self management and To improve ability to perform tasks related to life management text: Thank you for the opportunity to evaluate your patient. For Medicare and Medicare HMO plans, please review the plan of care and approve it. It will need to be FAXED BACK to us at [phone] for Medicare purposes. For Medicare only, by signing this I certify the plan of care. Please let me know if there are questions or concerns regarding this plan of care. Physician Signature: Date:
--- NOTE | 2022-09-16 11:11 | HP.PTDCSUM ---
Discharge Summary D/C summary: It has been my pleasure to treat CLEO MEZA referred by PEDRO PABLO ESQUIVEL, with the diagnosis of R shoulder pain with antibiotic spacer for a total of 17 visit(s). Discharge Date: 09/16/22 Please see the following information for a summary of their discharge status. Subjective Subjective: Pt. reports overall doing well. Pt. reports having some pain with attempts at over head activities. He is HEP compliant without issues. No pain at rest, but has increased pain with attempts with OH activities and some ADLs. Pain R shoulder: Pain Intensity (Out of 10): 0 Overall Improvement % Improvement: 30 Objective Objective/Function: We reviewed his HEP and applied the correct bands and resistances in order to increase his progression of strength. Pt. has good HEP at this point in time. He continues to have increased difficulty with AROM beyond shoulder height and ER greater than neutral. He has some progression in strength, but is still limited. He is going to continue with his progression I with focus on HEP. Pt. consents to this plan. He is to work on his strengthening and ROM I until he sees physician to determine what the next step is with his shoulder. He is still limited below the height of his shoulder. Goals Goal 1:: LTG: Pt. to be I with HEP. Goal Progress: Goal Met Goal 2:: LTG: Pt. to have increased R shoulder ROM to at least 50% of full active motion. Goal Progress: Goal Met Goal 3:: LTG: pt. to have increased RUE strength by 1/2 grade throughout allowing for increased functional use. Goal Progress: Progressing Goal 4:: LTG: Pt. to complete all daily activities without increase in symptoms and with increased functional use of RUE. Goal Progress: Progressing Plan Plan: Pt. to be DC from PT to I HEP at this point in time. D/C Information Discharge Comments: Pt. was treated with ROM and strengthening exercises. He is doing well, but still limited to below the height of his shoulder for most activities. He is to work on his strengthening program for the next few weeks to months then follow back up with physician at that point in time. d/c sentence: If there are questions or concerns regarding this patient's physical therapy, please feel free to call me at [phone]. Thank you for the referral of this patient. Sincerely, Owen L Sipos, DPT Balance/Gait/Functional tests Balance/Special Test Scores Lower Extremity Functional Score: 65 Quick DASH Score: 31.8139
== END 2022-09-16 19:00 | disposition home or self-care (01) ==
LOC: PT 10:30
PROVIDERS: PCP Family Medicine
DX: T84.59XD Infection and inflammatory reaction due to other internal joint prosthesis, subsequent encounter (principal); Z47.1 Aftercare following joint replacement surgery; Z96.611 Presence of right artificial shoulder joint
CPT/HCPCS: 97110; 97161; 97164

== ENCOUNTER → 2022-12-09 | Outpatient (CLI) | payer MEDICARE, SELFPAY ==
[2019-05-03 12:55] VITALS: BMI 22.8
--- NOTE | 2022-12-10 07:15 | PFT ---
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 Respiratory therapy reported good patient effort. Bronchodilators were used during testing. INTERPRETATION: Forced expiration spirometry demonstrates the presence of a mild large airways obstructive ventilatory defect. There was no significant response to aerosolized bronchodilators. Spirograms are of good quality and plateau gradually indicating slow emptying of the lungs. Body plethysmography was performed and revealed lung volumes to be within normal limits. Diffusing capacity by single breath CO was moderately reduced at 60% of predicted. IMPRESSION: Mild large airways obstructive ventilatory defect with moderate reduction in diffusing capacity.
== END | disposition home or self-care (01) ==
PROVIDERS: PCP Family Medicine; Referring Provider Nurse Practitioner Family; Visit Provider Nurse Practitioner Family
DX: Z79.899 Other long term (current) drug therapy (principal)
CPT/HCPCS: 94060; 94726; 94729

== ENCOUNTER → 2022-12-30 | Outpatient (CLI) | payer MEDICARE, SELFPAY ==
[2019-05-03 12:55] VITALS: BMI 22.8
--- NOTE | 2022-12-30 15:30 | MRI_ITS ---
STUDY: MRI CERVICAL SPINE WITHOUT CONTRAST REASON FOR EXAM: Male, 82 years old. RADICULOPATHY, NECK PAIN, HX PRIOR SURGERY X 2 TECHNIQUE: Standardized fat and water weighted pulse sequences were obtained in the sagittal and axial planes. COMPARISON: None FINDINGS: Normal foramen magnum and brainstem-cervical cord junction. Normal craniovertebral junction. Normal anterior atlantoaxial articulation. Normal odontoid process. Normal cervical lordosis. Normal vertebral bodies and posterior osseous elements. C2-3: Normal endplates. Normal disc height, signal and morphology. Normal central canal and intervertebral neural foramina. C3-4: Normal endplates. Normal disc height. Mild ventral extradural defect due to posterior bulging annulus. This is causing mild indentation of the ventral surface of the spinal cord and mild central canal stenosis. The AP canal diameter is 6 mm. Normal intervertebral neural foramina. Moderate asymmetric degenerative facet arthropathy, right greater than left. C4-5: Normal endplates. Minimal disc space height narrowing. Minimal degenerative anterolisthesis of C4 on C5. Normal central canal and intervertebral neural foramina. C5-6: Normal endplates. Normal disc height. Mild ventral extradural defect due to posterior bulging annulus. Normal central canal and intervertebral neural foramina. C6-7: Normal endplates. Moderate disc space height narrowing. Mild ventral extradural defect due to posterior marginal spurs. Normal central canal. Mild stenosis of the intervertebral neural foramina. C7-T1: Normal C7 inferior endplate. Slight anterior wedging of T1 superior endplate causing increased anterior disc space height. This is presumably from remote injury. No ventral extradural defect. Normal central canal and intervertebral neural foramina. T1-T2: (Sagittal only). Normal endplates. Normal disc height, signal and morphology. Normal central canal and intervertebral neural foramina. T2-T3 and T3-T4: (Sagittal only). Normal endplates. Minimal disc space height narrowing. No ventral extradural defect. Normal central canal and intervertebral neural foramina. Normal cervical cord. Normal upper thoracic spinal cord. Normal included portions of the brainstem and cerebellum. Normal visualized soft tissue structures. MRI/Spine Cervical (Routine) IMPRESSION: 1. Minimal degenerative anterolisthesis of C4 on C5. 2. Mild central canal stenosis at C3-C4 disc space level with prominent posterior bulging annulus causing mild indentation of the ventral cord surface. AP canal diameter 6 mm. 3. Small C5-C6 posterior bulging annulus. 4. Moderate C6-C7 disc space height narrowing with posterior marginal spurs and mild stenosis of the intervertebral neural foramina. 5. Slight anterior wedging of T1 superior endplate is presumably from remote injury. Electronically Signed: Cyril Sotomayor MD at 8:35 EDT ,
== END | disposition home or self-care (01) ==
PROVIDERS: PCP Family Medicine; Visit Provider Anesthesiology Pain Medicine
DX: M54.12 Radiculopathy, cervical region (principal)
CPT/HCPCS: 72141

== ENCOUNTER → 2022-12-31 | Outpatient (CLI) | payer MEDICARE, SELFPAY ==
[2019-05-03 12:55] VITALS: BMI 22.8
--- NOTE | 2022-12-31 13:44 | ECHOD_ITS ---
Reason For Study: DYSPNEA Procedure This was a 2D Doppler, Color Flow transthoracic echocardiogram. Exam performed in department. Left Ventricle Normal LV size. Left ventricular systolic function is normal. The estimated ejection fraction is 55 %. No regional wall motion abnormalities noted. Right Ventricle Normal RV size. Normal systolic function. Atria The left atrium is mildly enlarged. Normal right atrium. Aortic Valve Trisinus/trileaflet aortic valve. Moderate focal aortic valve thickening. Mild (1+) aortic valve insufficiency. Pulmonic Valve Normal pulmonic valve. Great Vessels Normal aortic root. The pulmonary artery is normal size. Inferior vena cava collapse with respiration. Pericardium/Pleural No pericardial effusion. MMode/2D Measurements & Calculations LVIDd: 4.7 cm IVSd: 1.1 cm LVOT diam: 2.3 cm LVIDs: 3.2 cm LVPWd: 1.2 cm LVOT area: 4.1 cm2 FS: 30.5 % LAV(MOD-bp): 93.9 ml SV(MOD-sp4): 59.0 ml LVAd ap4: 28.3 cm2 LAV(MOD-bp) Indexed: 50.3 ml/m2 LVLd ap4: 7.1 cm LAV(MOD-sp2): 87.9 ml EDV(MOD-sp4): 93.7 ml LAV(MOD-sp4): 87.5 ml EDV(sp4-el): 96.1 ml LVAs ap4: 15.1 cm2 LVLs ap4: 5.5 cm ESV(MOD-sp4): 34.7 ml ESV(sp4-el): 35.5 ml EF(MOD-sp4): 63.0 % EF(sp4-el): 63.1 % SV(sp4-el): 60.6 ml LA dimension(2D): 5.1 cm LA A4 area: 25.5 cm2 TAPSE: 1.3 cm RA A4 area: 22.7 cm2 Time Measurements MV dec time: 0.20 sec Doppler Measurements & Calculations MV E max richard: 121.8 cm/sec Lat Peak E' Richard: 8.4 cm/sec Med Peak E' Richard: 4.7 cm/sec MV A max richard: 57.5 cm/sec E/E' lat: 14.5 E/E' med: 26.2 MV E/A: 2.1 MV V2 max: 151.1 cm/sec Ao V2 max: 176.5 cm/sec MV max P.2 mmHg MV dec slope: 608.7 cm/sec2 Ao max P.5 mmHg MV V2 mean: 69.3 cm/sec Ao V2 mean: 133.5 cm/sec MV mean P.5 mmHg Ao mean P.8 mmHg MV V2 VTI: 41.2 cm Ao V2 VTI: 41.7 cm AV (velocity ratio): 0.84 MVA(VTI): 3.4 cm2 CONSTANCE(I,D): 3.4 cm2 CONSTANCE(V,D): 3.6 cm2 AI max richard: 268.5 cm/sec LV V1 max: 158.2 cm/sec SV(LVOT): 141.8 ml AI max P.9 mmHg LV V1 max P.0 mmHg AI dec slope: 144.9 cm/sec2 LV V1 mean P.3 mmHg AI P1/2t: 542.8 msec LV V1 mean: 118.9 cm/sec LV V1 VTI: 35.0 cm PA V2 max: 74.9 cm/sec TR max richard: 229.6 cm/sec PA V2 mean: 54.5 cm/sec TR max P.1 mmHg ECHO/Echo Complete Interpretation Summary Normal LV size. Left ventricular systolic function is normal. The estimated ejection fraction is 55 %. No regional wall motion abnormalities noted. Mild (1+) aortic valve insufficiency. Ordering Physician: Shahzad Fischer Referring Physician: Shahzad Fischer Performed By: Hilary Nielsen RCS
== END | disposition home or self-care (01) ==
LOC: CVS 13:36
PROVIDERS: PCP Family Medicine; Referring Provider Nurse Practitioner Family; Visit Provider Nurse Practitioner Family
DX: R06.02 Shortness of breath (principal); Z98.890 Other specified postprocedural states; Z86.79 Personal history of other diseases of the circulatory system; J98.11 Atelectasis
CPT/HCPCS: 93306

== ENCOUNTER → 2023-01-30 | Outpatient (CLI) | payer MEDICARE, SELFPAY ==
[2019-05-03 12:55] VITALS: BMI 22.8
--- NOTE | 2023-01-30 18:11 | STRESSREP_ITS ---
Stress Test Report Pharmacologic myocardial perfusion stress test. 83-year-old man with a history of dyspnea and aortic valve repair Resting EKG demonstrates sinus bradycardia with a right bundle branch block and with a rate of 56 bpm. Resting blood pressure is 118/70 mmHg. 0.4 mg of regadenoson was infused per usual protocol followed by rapid intravenous saline flush injection. Continuous EKG monitoring was performed. The maximum heart rate was 67 bpm which was 48% of max impacted heart rate the maximum workload was 1 metabolic equivalent. At rest there were no ST or T wave changes noted to suggest ischemia and at peak infusion nonspecific ST changes were noted which did not meet the criteria for ischemia. No clinical angina is noted. The fi nal blood pressure was 108/54 mmHg. Myocardial perfusion protocol. 11.5 mCi of technetium 99m sestamibi was injected at rest. 0.4 mg of regadenoson was infused per usual protocol. At peak infusion 33.3 mCi of technetium 99m sestamibi was injected stress images were obtained stress and rest images were reconstructed and compared in the short axis vertical long and horizontal long axis. Gated images were also obtained. Perfusion SPECT analysis: Review of the stress images demonstrate normal uptake of tracer noted in all areas of the myocardium. There is mild reduction of perfusion noted at the apex. The resting images similar demonstrated normal uptake of tracer noted in all areas of the myocardium. Similar apical reduction is noted. No areas of reversibility are noted to suggest ischemia. But a small apical infarct cannot be completely excluded. Gated SPECT analysis: The gated ejection fraction is 65%. Conclusion: Normal pharmacologic myocardial perfusion stress test. Preserved ejection fraction.
== END | disposition home or self-care (01) ==
LOC: CVS 06:04
PROVIDERS: PCP Family Medicine; Referring Provider Nurse Practitioner Family; Visit Provider Nurse Practitioner Family
DX: R06.09 Other forms of dyspnea (principal); I48.0 Paroxysmal atrial fibrillation; I97.89 Other postprocedural complications and disorders of the circulatory system, not elsewhere classified; Z95.828 Presence of other vascular implants and grafts; Z98.890 Other specified postprocedural states; Z86.79 Personal history of other diseases of the circulatory system; Z79.01 Long term (current) use of anticoagulants
CPT/HCPCS: 78452; 93017; A9500; A4216; J2785

== ENCOUNTER → 2023-06-05 | Outpatient (CLI) | payer MEDICARE, SELFPAY ==
[2019-05-03 12:55] VITALS: BMI 22.8
--- NOTE | 2023-06-05 09:31 | RAD_ITS ---
STUDY: X-RAY - ESOPHAGUS (BARIUM SWALLOW) WITH FLUOROSCOPY REASON FOR EXAM: Male, 83 years old. achalasia and esophageal spasm TECHNIQUE: 20 view(s) of the esophagus were obtained following swallowing of barium. FLUOROSCOPY TIME (if supplied): (30 seconds) minutes/seconds. 10.84 mGy COMPARISON: None. FINDINGS: There is no demonstrated esophageal foreign body. There is no demonstrated stricture or mucosal abnormality. Normal gastroesophageal junction, without a demonstrated hiatal hernia. The patient ingested a 12 mm tablet of barium without any difficulty. There is atherosclerotic calcification of the aortic arch with tortuosity of the descending aorta. Normal visualized pulmonary parenchyma. There are diffuse degenerative changes of the visualized thoracic spine. RAD/Esophagus Dual Contrast IMPRESSION: Normal plain film x-ray examination (barium swallow) of the esophagus. Electronically Signed: Gavino Negrete MD at 15:15 EDT ,
== END | disposition home or self-care (01) ==
LOC: RAD 09:29
PROVIDERS: PCP Family Medicine; Referring Provider Internal Medicine Gastroenterology; Visit Provider Internal Medicine Gastroenterology
DX: K22.2 Esophageal obstruction (principal); R13.10 Dysphagia, unspecified
CPT/HCPCS: 74221

== ENCOUNTER 2023-06-12 09:26 | Day surgery (SDC) | payer MEDICARE, SELFPAY ==
[2019-05-03 12:55] VITALS: BMI 22.8
[2023-06-12 09:47] VITALS: BP 132/79; PULSE 69; RESP 18; TEMP 36.7; O2SAT 98
[2023-06-12] MEDS: Lidocaine Jelly 2% 20 ML Syringe (URO-JET) 1 APPLIC (09:50)
== END 2023-06-12 23:59 | disposition home or self-care (01) ==
PROVIDERS: PCP Family Medicine; Referring Provider Family Medicine; Visit Provider Internal Medicine Gastroenterology
PROC: F00ZJWZ Instrumental Swallowing and Oral Function Assessment using Swallowing Equipment (ICD-10-PCS; CPT 43235; principal; 2023-06-12 09:25)
DX: R13.10 Dysphagia, unspecified (principal); R07.89 Other chest pain
CPT/HCPCS: 91010

== ENCOUNTER 2023-07-01 12:29 | Day surgery (SDC) | payer MEDICARE, SELFPAY ==
[2019-05-03 12:55] VITALS: BMI 22.8
[2023-07-01] VITALS (7 sets, daily range): BP systolic 98–141; BP diastolic 63–75; PULSE 57–87; RESP 16–18; TEMP 36.3–36.8; O2SAT 96–98; BMI 20.7
[2023-07-01] MEDS: Lactated Ringers 1,000 ML 15 ML IV (12:49)
--- NOTE | 2023-07-01 13:30 | EGD_PTH ---
PATIENT: CLEO MEZA LOC: EN U#:[id number] AGE/SX: 83/M ROOM: RE07/01/[address]: Dr. Reuben Santos DO : 1940 BED: DIS: 07/01/2023 SPEC #: [id number] RECD: 07/01/23 16:30 STATUS: OLIVER ADRIA #: [id number] CHAVA: 07/01/23 13:[address]: Reuben Santos DEPT: SURGICAL PATHOLOGY RECD BY: Edilia Cano ENTERED: 07/02/23 09:47 SP TYPE: EGD BIOPSY FABY DR: Dr. Anthony Wakefield MD Tissues: Esophagus, NOS Procedures: Special Stain Group II Surgery Specimen Level IV Alcian Blue/PAS (control) HEADER OPERATION: EGD with biopsies and dilation PRE-OP DIAGNOSIS: Difficulty swallowing, Schatzki's ring TISSUE SUBMITTED: Distal esophagus biopsy MICROSCOPIC DIAGNOSIS Distal esophagus, biopsy: Gastroesophageal junctional biopsy with mild chronic inflammation. No evidence of goblet cell metaplasia. See comment. / 07/03/23 COMMENT Alcian blue/PAS stain with matched control supports the above diagnosis. MICROSCOPIC DESCRIPTION Slides are reviewed. GROSS DESCRIPTION Received in fixative is one container labeled with the patient's name and designated Distal esophagus biopsy. The specimen consists of two irregular fragments of light ayoub soft tissue that in aggregate measure 0.5 x 0.5 x 0.1 cm. The specimen is totally submitted in one cassette. / 07/02/23 TC:3 CPT:24604,25262
--- NOTE | 2023-07-01 14:29 | PCM.HP.BLA ---
History and Physical Date of Admission: 07/01/23 CLEO MEZA is a 83 M who presents to the office today for follow up. *BGI established 1.5.22 with intermittent dysphagia most days of the week for the last five months. PCP referred to another GI who offered PPI or endoscopy, he wanted endoscopy but a family crisis arose and he would like to establish somewhere closer to him. ?EGD 2.8.22?Severe Schatzki ring, Savary 51F; LA Grade A esophagitis; abnormal esophageal motility, ?spasm; non-bleeding duodenal diverticulum. Metaplasia neg OV 2..22 doing well with improvement of dysphagia since EGD.?Start PPI OV 4.4.22 continues to be doing well; f/u PRN OV 11.16.22 with recurrence of dysphagia that spontaneously resolved, likely r/t stress. OV 3.28.24- Pt reports his swallowing started getting bad beginning of this year. Has a cough that produces phlegm. States he will eat and then an hr or so later will cough up pieces of food. Feels its getting stuck in lower esophagus. Is not having heartburn, nausea or vomiting. ? ? ROS Const Constitutional: Positive for fatigue ENT ENT: Positive for difficulty swallowing Gastro GI: Positive for difficulty swallowing; No abdominal pain, belching, bloating, change in bowel habits, change in stool character, coffee ground emesis, constipation, cramping, diarrhea, heartburn, feeling full early, excessive flatus, incontinent of stools, Vomiting blood/hematemesis, Blood in stool, loose stools, Black,tarry stools, nausea/dyspepsia, pain with swallowing, vomiting or other Musc Musculoskeletal: Positive for joint pain, numbness, tingling, Arthritis and restless legs Skin Skin: No yellowing of the eye or itchy eyes Neuro Neurology: Positive for numbness, tingling and restless legs Psych Psychiatric: Positive for anxiety and Positive for depression Endo Endocrine: Positive for fatigue Aller/Imm Allergy/Immunologic: No itchy eyes George/Lymp Hematologic/Lymphatic: No easy bleeding or easy bruising Quality Reporting Tobacco Screening ([facility] 138) Smoking Status: Former smoker Assessment and Plan Assessment and Plan (1) Difficulty swallowing: Status: Acute (2) Schatzki's ring: Status: Acute Plan: 81 M who presents to the office today for recurrence of difficulty swallowing, but it resolved after a couple of days. He thinks it was related to stress. His convinced him to keep the appt because he has noted drooling while awake x several months. No nausea, vomiting, heartburn, acid reflux, abd pain. No oral lesion, dental issues. Last office visit 06/04/21; at that time he was having no difficulty swallowing following dilation of Schatzki rings on 04/10/21. Plan was to complete 8 wks of BID dosing of pantoprazole 40 mg; he will then decrease to 40 mg QAM and taper off after 2 mos. His dysphagia began in 08/2020, no prior hx. No hx of heartburn. Denies cough, acid reflux, nausea, vomiting, diarrhea, constipation, abd pain. EGD performed 04.10.21 finding severe Schatzki ring, dilated; LA grade A reflux esophagitis; abnormal esophageal motility suspicious for esophageal spasm; non-bleeding duodenal diverticulum. Biopsy ? distal esophagus, moderate chronic inflammation without metaplasia; esophagus, minimal chronic inflammation. He he presents back with worsening esophageal dysphagia to liquids and solids. 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 Recommend barium esophagram and esophageal manometry. Orders: Orders Esophageal Manometry 06/13/23 R13.10 - Dysphagia, unspecified Esophagus Dual Contrast Today K22.2 - Esophageal obstruction, R13.10 - Dysphagia, unspecified I have examined the patient and the H&P has been reviewed. There are no clinical changes since date of exam.
--- NOTE | 2023-07-01 14:50 | OP.CCLET_ITS ---
07/01/2023 Anthony Wakefield Re : Upper GI endoscopy procedure for Jamel Simmons Ashu This procedure was performed on Saturday, July 01, 2023. My impressions and recommendations are as follows: Impressions : - Moderate Schatzki ring. Dilated. - Z-line irregular, 40 cm from the incisors. Biopsied. - Small hiatal hernia. - No gross lesions in the first portion of the duodenum. Recommendations : - Discharge patient to home. - Resume previous diet. - Continue present medications. - Await pathology results. My findings are described in the full procedure note, which is enclosed. If I can be of further assistance, please feel free to contact me at . Sincerely, Reuben Santos, 07/01/2023 2:49:58 PM This report has been signed electronically.
--- NOTE | 2023-07-01 14:50 | OP.EGD_ITS ---
Patient Name: Jamel Garza Procedure Date: 07/01/2023 2:32 PM Date of : 1940 Age: 83 Procedure: Upper GI endoscopy Indications: Dysphagia Providers: Reuben Santos DO Medicines: Monitored Anesthesia Care Patient Profile: This is an 83 year old male. Refer to note in patient chart for documentation of history and physical. Patient has symptoms of chronic dysphagia and dysphagia with solids. Complications: No immediate complications. Procedure: Pre-Anesthesia Assessment: - Prior to the procedure, a History and Physical was performed, and patient medications and allergies were reviewed. The patient is competent. The risks and benefits of the procedure and the sedation options and risks were discussed with the patient. All questions were answered and informed consent was obtained. Patient identification and proposed procedure were verified by the physician in the pre-procedure area. Mental Status Examination: alert and oriented. Airway Examination: normal oropharyngeal airway and neck mobility. Respiratory Examination: clear to auscultation. CV Examination: normal. Prophylactic Antibiotics: The patient does not require prophylactic antibiotics. Prior Anticoagulants: The patient has taken no anticoagulant or antiplatelet agents except for NSAID medication. ASA Grade Assessment: II - A patient with mild systemic disease. After reviewing the risks and benefits, the patient was deemed in satisfactory condition to undergo the procedure. The anesthesia plan was to use monitored anesthesia care (MAC). Immediately prior to administration of medications, the patient was re-assessed for adequacy to receive sedatives. The heart rate, respiratory rate, oxygen saturations, blood pressure, adequacy of pulmonary ventilation, and response to care were monitored throughout the procedure. The physical status of the patient was re-assessed after the procedure. After obtaining informed consent, the endoscope was passed under direct vision. Throughout the procedure, the patient's blood pressure, pulse, and oxygen saturations were monitored continuously. The gastroscope was introduced through the mouth, and advanced to the second part of duodenum. The upper GI endoscopy was accomplished without difficulty. The patient tolerated the procedure well. Scope In: 2:39:47 PM Scope Out: 2:45:02 PM Total Procedure Duration Time 0 hours 5 minutes 15 seconds Findings: A moderate Schatzki ring was found at the gastroesophageal junction. A guidewire was placed and the scope was withdrawn. Dilation was performed with a Savary dilator with no resistance at 54 Fr. The dilation site was examined and showed moderate mucosal disruption. Estimated blood loss was minimal. The Z-line was irregular and was found 40 cm from the incisors. Biopsies were taken with a cold forceps for histology. Verification of patient identification for the specimen was done. Estimated blood loss was minimal. A small hiatal hernia was present. The exam of the stomach was otherwise normal. No gross lesions were noted in the first portion of the duodenum. Impression: - Moderate Schatzki ring. Dilated. - Z-line irregular, 40 cm from the incisors. Biopsied. - Small hiatal hernia. - No gross lesions in the first portion of the duodenum. Recommendation: - Discharge patient to home. - Resume previous diet. - Continue present medications. - Await pathology results. Procedure Code(s): --- Professional --- 28430, Esophagogastroduodenoscopy, flexible, transoral; with insertion of guide wire followed by passage of dilator(s) through esophagus over guide wire 00875, 59,51, Esophagogastroduodenoscopy, flexible, transoral; with biopsy, single or multiple CPT copyright 2021 [employer]. All rights reserved. The codes documented in this report are preliminary and upon primer inspector review may be revised to meet current compliance requirements. Reuben Santos DO 07/01/2023 2:49:58 PM This report has been signed electronically. Number of Addenda: 0 Note Initiated On: 07/01/2023 2:32 PM
== END 2023-07-01 15:31 | disposition home or self-care (01) ==
LOC: EN 12:30 → AC 12:31
PROVIDERS: PCP Family Medicine; Referring Provider Family Medicine; Visit Provider Internal Medicine Gastroenterology
PROC: 0DJ08ZZ Inspection of Upper Intestinal Tract, Via Natural or Artificial Opening Endoscopic (ICD-10-PCS; CPT 43235; principal; 2023-07-01 13:25)
DX: K22.2 Esophageal obstruction (principal); K44.9 Diaphragmatic hernia without obstruction or gangrene; K20.90 Esophagitis, unspecified without bleeding; Z79.82 Long term (current) use of aspirin; Z79.890 Hormone replacement therapy; Z79.899 Other long term (current) drug therapy; I10 Essential (primary) hypertension; E78.00 Pure hypercholesterolemia, unspecified; E07.9 Disorder of thyroid, unspecified
CPT/HCPCS: 43248; 43239; 88305; 88313; J7120; C1769

== ENCOUNTER → 2023-11-25 | Outpatient (CLI) | payer MEDICARE, SELFPAY ==
[2019-05-03 12:55] VITALS: BMI 22.8
--- NOTE | 2023-11-25 12:56 | ECHOD_ITS ---
Reason For Study: DYSPNEA Procedure This was a 2D Doppler, Color Flow transthoracic echocardiogram. Exam performed in department. Left Ventricle Normal LV size. The estimated ejection fraction is 65 %. Unable to assess diastolic dysfunction. No regional wall motion abnormalities noted. Right Ventricle Normal RV size. Normal systolic function. Atria There is moderate biatrial dilatation. No doppler evidence for ASD. Mitral Valve There is moderate mitral annular calcification. There is no mitral valve stenosis. Trivial mitral valve insufficiency. Tricuspid Valve There is no tricuspid stenosis. No tricuspid valve insufficiency. Aortic Valve Trisinus/trileaflet aortic valve. Mild diffuse aortic valve thickening. Mild aortic stenosis. Trivial aortic valve insufficiency. Pulmonic Valve There is no pulmonic valvular stenosis. Trivial pulmonic valve insufficiency. Great Vessels Normal aortic root. Pericardium/Pleural No pericardial effusion. MMode/2D Measurements & Calculations LVIDd: 5.0 cm IVSd: 0.86 cm LVOT diam: 2.1 cm LVIDs: 3.1 cm LVPWd: 1.1 cm LVOT area: 3.4 cm2 RVDd: 4.6 cm FS: 39.0 % asc Aorta Diam: 3.5 cm LAV(MOD-bp): 64.5 ml LVAd ap4: 25.3 cm2 LAV(MOD-bp) Indexed: 34.5 ml/m2 LVLd ap4: 6.8 cm LAV(MOD-sp2): 59.1 ml EDV(MOD-sp4): 77.4 ml LAV(MOD-sp4): 65.1 ml EDV(sp4-el): 79.3 ml LVAs ap4: 14.7 cm2 LVLs ap4: 5.9 cm ESV(MOD-sp4): 30.4 ml ESV(sp4-el): 31.1 ml EF(MOD-sp4): 60.7 % EF(sp4-el): 60.8 % LVAd ap2: 25.8 cm2 SV(MOD-sp4): 46.9 ml SV(MOD-sp2): 52.5 ml LVLd ap2: 6.8 cm EDV(MOD-sp2): 83.7 ml EDV(sp2-el): 83.8 ml LVAs ap2: 14.2 cm2 LVLs ap2: 5.4 cm ESV(MOD-sp2): 31.2 ml ESV(sp2-el): 31.6 ml EF(MOD-sp2): 62.8 % SV(sp4-el): 48.2 ml Ao sinus diam: 3.[address] Junction: 3.1 cm LA dimension(2D): 5.0 cm LA A4 area: 22.1 cm2 RA A4 area: 18.7 cm2 TAPSE: 1.6 cm Time Measurements MV dec time: 0.24 sec Doppler Measurements & Calculations MV E max richard: 133.1 cm/sec Lat Peak E' Richard: 5.4 cm/sec Med Peak E' Richard: 6.1 cm/sec MV A max richard: 60.5 cm/sec E/E' lat: 24.7 E/E' med: 21.9 MV E/A: 2.2 MV V2 max: 137.7 cm/sec MV P1/2t max richard: 142.3 cm/sec Ao V2 max: 200.2 cm/sec MV max P.6 mmHg MV P1/2t: 76.5 msec Ao max P.1 mmHg MV V2 mean: 64.8 cm/sec MV dec slope: 545.1 cm/sec2 Ao V2 mean: 144.4 cm/sec MV mean P.2 mmHg MVA(P1/2t): 2.9 cm2 Ao mean P.3 mmHg MV V2 VTI: 36.3 cm Ao V2 VTI: 41.9 cm MVA(VTI): 1.6 cm2 AV (velocity ratio): 0.40 CONSTANCE(I,D): 1.4 cm2 CONSTANCE(V,D): 1.3 cm2 LV V1 max: 80.0 cm/sec SV(LVOT): 56.8 ml PA V2 max: 67.6 cm/sec LV V1 max P.6 mmHg PA max PG (full): 0.41 mmHg LV V1 mean P.4 mmHg LV V1 mean: 56.2 cm/sec LV V1 VTI: 16.9 cm PI end-d richard: 111.4 cm/sec TR max richard: 213.0 cm/sec TR max P.1 mmHg ECHO/Echo Complete Interpretation Summary The estimated ejection fraction is 65 %. Unable to assess diastolic dysfunction. There is moderate biatrial dilatation. Trivial mitral valve insufficiency. Mild aortic stenosis. Trivial aortic valve insufficiency. Ordering Physician: Amanda Willard Referring Physician: MARÍA SCHMID Performed By: Evonne Li RDCS
== END | disposition home or self-care (01) ==
LOC: PSN 12:51
PROVIDERS: PCP Family Medicine; Referring Provider Physician Assistant Medical; Visit Provider Physician Assistant Medical
DX: R06.09 Other forms of dyspnea (principal); I48.0 Paroxysmal atrial fibrillation; I42.8 Other cardiomyopathies; Z95.828 Presence of other vascular implants and grafts; I71.20 Thoracic aortic aneurysm, without rupture, unspecified; I10 Essential (primary) hypertension; E78.5 Hyperlipidemia, unspecified; Z86.79 Personal history of other diseases of the circulatory system; Z98.890 Other specified postprocedural states
CPT/HCPCS: 93225; 93226; 93306

== ENCOUNTER → 2024-05-27 | Outpatient (CLI) | payer MEDICARE, SELFPAY ==
[2019-05-03 12:55] VITALS: BMI 22.8
[2024-05-27 16:15] LABS: Anion Gap 14 (5-15); BUN 23 mg/dL (4-19); BUN/Creat Ratio 23.7 RATIO (10-20); Calcium,Total 8.8 mg/dL (7.6-11.0); Carbon Dioxide 19.2 mmol/L (21.0-32.0); Chloride 105 mmol/L (98-108); Creatinine, Serum 0.96 mg/dL (0.70-1.20); EST Glomerular Filtration Rate 78 (>60); Glucose 94 mg/dL (70-99); Potassium 4.7 mmol/L (3.3-5.1); Sodium Level 139 mmol/L (133-145)
== END | disposition home or self-care (01) ==
LOC: LAB 14:18
PROVIDERS: PCP Family Medicine; Referring Provider Nurse Practitioner Family; Visit Provider Nurse Practitioner Family
DX: Z51.81 Encounter for therapeutic drug level monitoring (principal); Z79.899 Other long term (current) drug therapy
CPT/HCPCS: 36415; 80048

== ENCOUNTER 2024-06-11 13:00 | Outpatient (RCR) | payer MEDICARE, SELFPAY ==
[2019-05-03 12:55] VITALS: BMI 22.8
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
--- NOTE | 2024-05-13 13:37 | HP.OTEVAL_ITS ---
Patient's Visit Information Visit Information Visit Information: CLEO MEZA is a 84 year old M, referred to Occupational Therapy by Dr. 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 Date of Evaluation: 05/13/24 Occupational Therapist: Rose Ramirez Subjective Subjective: This 84 year old male arrives with dx of B hand Dupetreyn contracture. Per pt L hand surgery for open release to LF and RF june of 2012. pt unable to remember if hand was straighter then presentation at this time or not. Pt performs small motor skills with L and large motor skills with R hand. Pt with increased difficulty opening jars, grasping items and holding on to them. pt reports the contractures are getting worse very slowly. Objective Objective/Observation: pt presents with L hand and R hand contracture ROM ROM Comments: L LF MCP -55/105, PIP -65/90 L RF MCP -35/85, PIP -25/95 L MF MCP -25/90 PIP -30/95 R LF MCP -45/95, PIP -20/85 R RF MCP -45/90, PIP -20/90 R MF MCP -60/90, PIP -5/85 Quick DASH-Disab of Arm,Shoulder& Hand Quick DASH Score: 45.4525 Rehabilitation General Assessment: pt arrives this date with dx of B Dupuytrens contracture M72.0. Pt presents with limitations in ROM L hand D3-5 and R hand D3-5. Pt has had an open surgery complete to the L hand in 2012 however has since returned to flexed contracted state. OT provides pt with information regarding possibility of making pt a splint for wear however that this would not improve his ROM and would just maintain it. Ed on surgical options/ injections and provided with information regarding where he would be able to look into procedure. Pt plan is to look into injection and then return for OT services after. No additional visits at this time completion of evaluation only with pt in agreeance. Rehabilitation Potential: Questionable Anticipated Interventions Other Interventions: n/a Visit Plan General Plan: n/a TEXT: Thank you for the opportunity to evaluate your patient. For Medicare and Medicare HMO plans, please review the plan of care and approve it. It will need to be FAXED BACK to us at [phone] for Medicare purposes. Please let me know if there are questions or concerns regarding this plan of care. Physician Signature: Date:
--- NOTE | 2024-05-13 13:42 | HP.OT.NRP ---
Patient Information Patient Information: CLEO MEZA was seen in my office for initial evaluation on 05/13/24. The following Plan of Care was established for this patient: Anticipated Interventions Other Interventions: n/a Last Seen Last Seen: This patient was last seen in our office 05/13/24. Pertinent comments regarding their Occupational therapy will appear below: This 84 year old male seen for completion of evaluation only this date no additional visits for OT at this time with pt in agreeance. At this point I will be discontinuing this patient from occupational therapy. I would be happy to see this patient again in the future if found appropriate by the physician. Thank you! Rose Ramirez
--- NOTE | 2024-06-11 13:46 | HP.PTDCSUM ---
Discharge Summary D/C summary: It has been my pleasure to treat CLEO MEZA referred by Dr. Anthony Wakefield MD, with the diagnosis of unsteady gait, falls for a total of 9 visit(s). Discharge Date: 06/11/24 Please see the following information for a summary of their discharge status. Subjective Subjective: I have less pain and better balance. Standing from chair without thinking about stabilizing self. 13 steps without stopping to breath. Reaching is painful in shoulder, others are fine. Sleep is fine. Shouder still hurts to lift and will never be better, I don't want another surgery. HEP is goign well Pain LBP: Pain Intensity (Out of 10): 0 Right Shoulder: Pain Intensity (Out of 10): 3 R shoulder: Pain Intensity (Out of 10): 3 Overall Improvement % Improvement: 40 Objective Objective/Function: 60 degree R shoulder elevation, not much pain but cannot get it up Improving 30 SSTS, romberg adn FGA is good for age. R shoulder not moving any better despite working on it. Goals Goal 1:: 14 on 30 SSTS to show improvd strength adn mobility Goal Progress: Goal Met Goal 2:: foam stance 20 seconds to improve vestibular balance Goal Progress: Goal Met Goal 3:: 100 degrees R shoulder elevation to help with funcitonal reach Goal Progress: Not Progressing Goal 4:: Pt feel 75% steadier and better movement of R UE Goal Progress: 40% Goal 5:: I appropriate HEP to minimize future problems(vest, weight shift, LE/core [id number], R shoulder rom/strngth.) Goal Progress: Goal Met Plan Plan: d/c D/C Information Discharge Comments: Will continue via HEP d/c sentence: If there are questions or concerns regarding this patient's physical therapy, please feel free to call me at [phone]. Thank you for the referral of this patient. Sincerely, Attila Teran, DPT, OCS, CSCS Balance/Gait/Functional tests Balance/Special Test Scores Functional Gait Assessment Score: 24 % Disability: 20.0000 CATSIB Score (Max score 120 seconds): 120 Lower Extremity Functional Score: 34 TUG Test Time Seconds: 10.06 Tug Test: <20 sec.=mostly independent 30 Second Chair Rise Test Seconds: 14 Improvement % Improvement: 40
== END 2024-06-11 14:30 | disposition home or self-care (01) ==
LOC: PT 13:00
PROVIDERS: PCP Family Medicine; Referring Provider Family Medicine; Visit Provider Family Medicine
DX: R26.81 Unsteadiness on feet (principal); M72.0 Palmar fascial fibromatosis [Dupuytren]
CPT/HCPCS: 97110; 97163; 97165; 97530

== ENCOUNTER 2024-07-20 10:05 | Emergency (ER) | payer MEDICARE, SELFPAY ==
[2019-05-03 12:55] VITALS: BMI 22.8
[2024-07-20] VITALS (9 sets, daily range): BP systolic 92–113; BP diastolic 65–88; PULSE 79–106; RESP 18–22; TEMP 36.4–36.5; O2SAT 93–98; BMI 21.1
--- NOTE | 2024-07-20 10:31 | EKG12_ITS ---
Test Reason : SOB Blood Pressure : */* mmHG Vent. Rate : 85 BPM Atrial Rate : * BPM P-R Int : * ms QRS Dur : 166 ms QT Int : 444 ms P-R-T Axes : * -75 -81 degrees QTcB Int : 528 ms Atrial fibrillation with premature ventricular or aberrantly conducted complexes Left axis deviation Right bundle branch block Septal infarct , age undetermined Abnormal ECG Confirmed by MARIA LUISA MCCARTY, MARY ([id number]), map editor YUVAL FITZGERALD ([id number]) on 07/21/2024 10:26:45 AM Referred By: Confirmed By: MARY GLASS MD
[2024-07-20] MEDS: 0.9% Normal Saline (1000mL) 1,000 ML 999 ML IV (10:40)
[2024-07-20] MEDS: Ipratropium/Albuterol Sulfate 3 ML AMPUL.NEB 9 ML INHALATION (10:56)
[2024-07-20 11:11] LABS: Absolute Lymphocyte Count 0.81 X10^3/uL (0.83-4.51); Absolute Neutrophil Count 3.6 X10^3/uL (2.0-7.7); Basophil# 0.01 X10^3/uL; Basophil% 0.2 % (0-1); Eosinophil# 0.13 X10^3/uL; Eosinophils% 2.6 % (0-5); Hematocrit 40.1 % (40-54); Hemoglobin 12.6 g/dL (13.0-16.5); Lymphocyte # 0.81 X10^3/ul (0.83-4.51); Lymphocyte % 16.2 % (19-41); Mean Corp Hgb Conc 31.4 g/dL (32-36); Mean Corpuscular Hgb 28.3 pg (27.0-32.0); Mean Corpuscular Volume 89.9 fL (80-94); Mean Platelet Vol. 10.7 fl (6.2-12.0); Monocyte# 0.47 X10^3/uL; Monocyte% 9.4 % (0-10); NRBC Flagged by Analyzer 0 % (0-5); Neutrophil # 3.55 X10^3/uL (2.7-7.7); Neutrophil % 71.2 % (47-70); POSITIVE COUNT YES; Platelet Count 103 K/mm3 (150-450); RBC Distribution Width CV 17.9 % (11.6-14.6); RBC Distribution Width SD 59.2 fl (35.1-43.9); Red Blood Count 4.46 M/mm3 (4.6-6.2)
--- NOTE | 2024-07-20 11:14 | ED.VIS.DYS ---
HPI History of Present Illness Chief Complaint: Shortness of Breath Narrative Narrative: Chief complaint and HPI: History taken by patient as well as cardiology note on 07/13/2024. 84-year-old gentleman with past medical history of HFpEF EF 65%, paroxysmal atrial fibrillation not on anticoagulation secondary to GI bleed, aortic and mitral valve repair with a thoracic ascending aneurysm repair in 2019, HTN, HLD presents for evaluation of shortness of breath and cold-like symptoms. Patient states for the past several days he has been having productive cough with yellow sputum, chest congestion, and shortness of breath. He states that it is not improving. He called his PCP today who told him to present to the emergency department. He denies any fever, chills, nausea, vomiting, abdominal pain, chest pain, diarrhea, constipation. Per cardiology note, patient has remained in atrial fibrillation. They are having difficulty controlling his heart rate. Per cardiology, given patient's high [id number], the plan was to have the patient return back in a month to reevaluate rate response and repeat EKG. If he was remaining in atrial fibrillation the plan was to put him back on anticoagulation. He was supposed to figure out what anticoagulation he was on. I did ask him this and he states it was Coumadin. Review of systems: See HPI Medications: As listed on the chart Allergies: As listed on the chart PFSH: Per chart Vital signs: As listed on the chart. Reviewed. Physical exam: Gen: A&O x3, NAD Head: Normocephalic, atraumatic Eyes: No sclera icterus, conjunctiva clear ENT: Moist mucous membranes Neck: Trachea midline, No JVD CV: Irregularly irregular rhythm, intermittently tachycardic, no murmurs, no peripheral edema Resp: Lungs diminished in the bilateral bases, miildly coarse, expiratory wheezing, + productive cough GI: Abd soft, non-distended, non-tender, no r/r/g Musc: Full ROM, no deformity Skin: Warm, dry Neuro: Alert, oriented, grossly intact, sensation intact Psych: Cooperative, appropriate mood and affect [facility] Medical History History of steroid therapy Thyroid disease Back pain Injury of back Syncope Difficulty swallowing Shortness of breath on exertion Leg cramps History of CHF (congestive heart failure) Schatzki's ring Wears hearing aid Wears glasses Alcohol use Marijuana use Prostate disease High cholesterol Former smoker History of echocardiogram History of stress test Cardiology follow-up encounter History of irregular heartbeat History of atrial fibrillation retirement current use of amiodarone Right bundle branch block and left anterior fascicular block retirement current use of anticoagulant Dupuytren contracture Atelectasis Nonischemic cardiomyopathy Pericardial effusion Paroxysmal atrial fibrillation Postoperative atrial fibrillation Anxiety BPH (benign prostatic hyperplasia) Diverticulitis Ankylosing spondylitis Osteoarthritis Essential hypertension Ascending aortic aneurysm Nonrheumatic mitral valve regurgitation Nonrheumatic aortic valve regurgitation Former smoker, stopped smoking many years ago Cranial nerve palsy Diplopia Hyperlipidemia Home Medications ?Medication ?Instructions ?Recorded ?Last Taken ?Type aspirin 81 mg tablet,delayed 81 mg PO DAILY 06/02/19 07/20/24 History release (Adult Aspirin Regimen) multivitamin 1 tab PO DAILY 06/02/19 07/20/24 History rosuvastatin 5 mg tablet 5 mg PO QHS cholesterol 03/23/20 07/19/24 History tamsulosin 0.4 mg capsule 0.8 mg PO QHS 03/23/20 07/19/24 History acetaminophen 325 mg tablet 650 mg PO Q4H PRN pain 09/10/21 Unknown History Handicap Placard #1 ea 10/01/21 Unknown Rx gabapentin 100 mg capsule 100 mg PO BID 05/14/23 07/20/24 History pantoprazole 40 mg tablet,delayed 40 mg PO DAILY #90 tabs 07/25/23 07/20/24 Rx release melatonin 5 mg tablet 5 mg PO HS PRN sleep 05/11/24 Unknown History sertraline 100 mg tablet 100 mg PO QDAY 05/11/24 07/20/24 History trazodone 100 mg tablet 100 mg PO QHS 05/11/24 07/19/24 History budesonide-formoterol HFA 160 2 puff inhalation BID 07/13/24 07/20/24 History mcg-4.5 mcg/actuation aerosol inhaler albuterol sulfate 90 mcg/actuation 2 puff inhalation Q4H PRN PRN 07/20/24 Unknown Rx aerosol inhaler (Ventolin HFA) Wheezing ##1 doxycycline hyclate 100 mg capsule 100 mg PO BID 7 days #14 caps 07/20/24 Unknown Rx levothyroxine 88 mcg tablet 88 mcg PO DAILY 07/20/24 07/20/24 History metoprolol tartrate 25 mg tablet 25 mg PO BID 07/20/24 07/20/24 History Allergy/AdvReac Type Severity Reaction Status Date / Time warfarin (From Coumadin) AdvReac Bleeding Verified 07/20/24 10:06 Family History Father ETOH abuse Congestive heart failure Grandfather Gastric cancer Grandfather CVA (cerebral vascular accident) Diabetes CAD (coronary artery disease) Grandmother CVA (cerebral vascular accident) Surgical History History of esophagogastroduodenoscopy (EGD) History of bilateral cataract extraction History of shoulder surgery History of cardiac catheterization History of cardioversion (04/02/19) Hx of ascending aorta replacement (01/13/19) History of aortic valve repair (01/13/19) Hx of mitral valve repair (01/13/19) H/O vasectomy H/O arthroscopic knee surgery History of right knee joint replacement History of right shoulder replacement Social History Smoking Status: Former smoker quit date: 10/23/70 pack-years: 15 alcohol intake: current alcohol intake frequency: 0-2 drinks per day Alcohol type: beer and wine substance use type: marijuana and other details: uses for pain relief, sleep and anxiety, Hasn't used in awhile. caffeine: No EXAM Physical Exam Const Vital Signs: 07/20/24 10:06 07/20/24 10:23 07/20/24 10:26 Temperature 97.6 F L 97.6 F L Temperature Source Oral Oral Pulse Rate 105 H 104 H Respiratory Rate 20 H 22 H Respiratory Effort Normal Respiratory Depth Normal Respiratory Pattern Normal Blood Pressure 113/88 H 110/87 H Blood Pressure Mean 96 94 Pulse Ox 98 97 Oxygen Delivery Method Room Air Room Air 07/20/24 10:57 07/20/24 10:58 07/20/24 11:29 Temperature 97.7 F L Temperature Source Temporal Pulse Rate 79 93 Respiratory Rate 21 H 21 H Respiratory Effort Respiratory Depth Respiratory Pattern Blood Pressure 92/74 Blood Pressure Mean 80 Pulse Ox 96 97 Oxygen Delivery Method Room Air 07/20/24 12:08 07/20/24 12:53 07/20/24 13:12 Temperature 97.7 F L Temperature Source Pulse Rate 106 H 98 105 H Respiratory Rate 19 H 18 20 H Respiratory Effort Respiratory Depth Respiratory Pattern Blood Pressure 102/65 106/70 111/87 H Blood Pressure Mean 77 82 95 Pulse Ox 93 95 98 Oxygen Delivery Method Room Air MDM MDM MDM Narrative Medical decision making narrative: 84-year-old gentleman with past medical history of HFpEF EF 65%, paroxysmal atrial fibrillation not on anticoagulation secondary to GI bleed, aortic and mitral valve repair with a thoracic ascending aneurysm repair in 2019, HTN, HLD presents for evaluation of shortness of breath and cold-like symptoms. Differential diagnosis includes but is not limited to pneumonia, bronchitis, viral illness. On presentation, patient is mildly tachycardic. He is in atrial fibrillation. Patient has been in atrial fibrillation in which cardiology is contemplating placing patient back on anticoagulation for this. Patient currently not having any chest pain. NS bolus, breathing treatments ordered. Respiratory workup ordered. EKG reviewed see below. Chest x-ray without obvious pneumonia. Has some mild vascular congestion therefore BNP added. CBC without leukocytosis. Patient has baseline anemia. BNP relatively unremarkable. BNP within normal range. Patient's symptoms are likely secondary to bronchitis with wheezing. On reevaluation, patient lung sound more clear. His wheezing has improved. His tachycardia has resolved with heart rate in the 90s. Respiratory rate 18. Patient feels that his shortness of breath has improved. He states is easier to breathe. He states he is ready to discharge home. Given that he is still in atrial fibrillation, I did call cardiology and spoke with Dr. Casanova. I asked him if he would like me to place the patient on anticoagulation given previous cardiology notes. He recommended for me to hold off for now and have patient follow-up in the office to determine if anticoagulation should be restarted. Patient and were updated of the plan and confirmed understanding. Patient is stable to discharge home. He was given albuterol inhaler as needed for wheezing. Will place him on a 7-day course of doxycycline. Return precautions explained. Follow-up with PCP and animal surgeon. EKG: Interpreted by me/EM physician: EKG shows atrial fibrillation with PVCs. Known right bundle branch block. No acute ischemic changes. Heart rate 85. This is similar to the previous EKG on 07/13 that was seen in cardiology office. Diagnostic: Interpreted by me/EM physician: Chest x-ray without consolidation, effusion, cardiomegaly, pneumothorax. Patient has some mild vascular congestion. Radiology in agreement. Impression: 1. Bronchitis with wheezing 2. Atrial fibrillation with history of paroxysmal atrial fibrillation Lab Data Labs: Laboratory Results - last 24 hr 07/20/24 10:23 WBC 5.0 RBC 4.46 L Hgb 12.6 L Hct 40.1 MCV 89.9 MCH 28.3 MCHC 31.4 L RDW Std Deviation 59.2 H RDW Coeff of Efraín 17.9 H Plt Count 103 L MPV 10.7 Immature Gran % (Auto) 0.400 Neut % (Auto) 71.2 H Lymph % (Auto) 16.2 L Ada % (Auto) 9.4 Eos % (Auto) 2.6 Baso % (Auto) 0.2 Absolute Neuts (auto) 3.6 Absolute Lymphs (auto) 0.81 L Nucleated RBC % 0 Platelet Estimate ADEQUATE Sodium 137 Potassium 4.4 Chloride 104 Carbon Dioxide 23.5 Anion Gap 10 BUN 15 Creatinine 0.82 Estim Creat Clear Calc 65.22 Est GFR (MDRD) Non-Af 87 BUN/Creatinine Ratio 18.7 Glucose 118 H Calcium 9.1 NT pro BNP II 1130 Radiography Diagnostic Testing: Clinical Impression(s) from Imaging Studies Chest X-Ray 07/20/24 11:20 IMPRESSION: Hyperinflation. Prior mitral valve replacement. Pulmonary vascular congestion. Reading Location: [place] [id number] Discharge Plan Triage Chief Complaint: Shortness of Breath ED Provider: Krishna Muniz Dx/Rx/DC Orders Clinical Impression: Bronchitis Instructions: Acute Bronchitis Prescriptions: New albuterol sulfate [Ventolin HFA] 90 mcg/actuation HFA aerosol inhaler 2 puff inhalation Q4H PRN PRN (Reason: Wheezing) Qty: 1 0RF doxycycline hyclate 100 mg capsule 100 mg PO BID 7 Days Qty: 14 0RF No Action aspirin [Adult Aspirin Regimen] 81 mg tablet,delayed release (DR/EC) 81 mg PO DAILY multivitamin Tablet 1 tab PO DAILY acetaminophen 325 mg tablet 650 mg PO Q4H PRN (Reason: pain) tamsulosin 0.4 mg capsule 0.8 mg PO QHS rosuvastatin 5 mg tablet 5 mg PO QHS gabapentin 100 mg capsule 100 mg PO BID sertraline 100 mg tablet 100 mg PO QDAY trazodone 100 mg tablet 100 mg PO QHS melatonin 5 mg tablet 5 mg PO HS PRN (Reason: sleep) budesonide-formoterol 160-4.5 mcg/actuation HFA aerosol inhaler 2 puff inhalation BID levothyroxine 88 mcg tablet 88 mcg PO DAILY metoprolol tartrate 25 mg tablet 25 mg PO BID (DME) Handicap Placard See Rx Instructions .Route .MEDSUPPLY Qty: 1 0RF Rx Instructions: Good from 10/01/2021-10/01/2026; pantoprazole 40 mg tablet,delayed release (DR/EC) 40 mg PO DAILY Qty: 90 3RF Primary Care Provider: Anthony Wakefield Referrals: Anthony Wakefield MD [Primary Care Provider] - 3-5 Days Cole Shi MD [Med Staff - Active Staff] - 3-5 Days Activity Restrictions/Additional Instructions: Follow-up with your primary care physician. Return back to the ED if symptoms change or worsen. Follow-up with your animal surgeon to assess if you need to be placed back on anticoagulation. Print Language: [place] Disposition Disposition: Home, Self Care Discharge Date/Time: 07/20/24 13:23
[2024-07-20 11:19] LABS: Anion Gap 10 (5-15); BUN 15 mg/dL (4-19); BUN/Creat Ratio 18.7 RATIO (10-20); Calcium,Total 9.1 mg/dL (7.6-11.0); Carbon Dioxide 23.5 mmol/L (21.0-32.0); Chloride 104 mmol/L (98-108); Creatinine, Serum 0.82 mg/dL (0.70-1.20); EST Glomerular Filtration Rate 87 (>60); Estimated Creatinine Clearance 65.22 ml/min (50-250); Glucose 118 mg/dL (70-99); Potassium 4.4 mmol/L (3.3-5.1); Sodium Level 137 mmol/L (133-145)
--- NOTE | 2024-07-20 11:20 | RAD_ITS ---
PROCEDURE: CHEST PA AND LATERAL 07/20/2024 REASON FOR EXAM: COUGH TECHNIQUE: Frontal and lateral views of the chest. COMPARISON: Prior study dated September 05, 2021. FINDINGS: Hardware: EKG electrodes are seen. Heart: Prior midline sternotomy and mitral valve replacement. The heart is not enlarged. Mediastinum: Calcification of the aortic arch. Lungs: Hyperinflation. Pulmonary vascular congestion. Bones: Degenerative changes are identified within the thoracic spine. RAD/Chest PA and Lateral IMPRESSION: Hyperinflation. Prior mitral valve replacement. Pulmonary vascular congestion. Reading Location: [facility]
[2024-07-20 11:57] LABS: Differential Indicated SCAN CRITERIA MET
[2024-07-20 11:59] LABS: Platelet Estimate ADEQUATE (ADEQ)
[2024-07-20 12:42] LABS: Pro- Brain NATRIURETIC PEPTIDE 1130 pg/mL (<=1800)
== END 2024-07-20 13:23 | disposition home or self-care (01) ==
PROVIDERS: Emergency Provider Surgery; PCP Family Medicine; Visit Provider Surgery
DX: J20.9 Acute bronchitis, unspecified (principal); I11.0 Hypertensive heart disease with heart failure; I50.30 Unspecified diastolic (congestive) heart failure; I48.0 Paroxysmal atrial fibrillation; D64.9 Anemia, unspecified; I35.1 Nonrheumatic aortic (valve) insufficiency; I34.0 Nonrheumatic mitral (valve) insufficiency; I49.3 Ventricular premature depolarization; I71.21 Aneurysm of the ascending aorta, without rupture; I45.10 Unspecified right bundle-branch block; F41.9 Anxiety disorder, unspecified; N40.0 Benign prostatic hyperplasia without lower urinary tract symptoms; E07.9 Disorder of thyroid, unspecified; E78.00 Pure hypercholesterolemia, unspecified; Z95.2 Presence of prosthetic heart valve; Z87.19 Personal history of other diseases of the digestive system; Z79.82 Long term (current) use of aspirin; Z79.890 Hormone replacement therapy; Z79.899 Other long term (current) drug therapy; Z87.891 Personal history of nicotine dependence
CPT/HCPCS: 71046; 80048; 83880; 85025; 87631; 93005; 94640; 96360; 99283; A4216

== ENCOUNTER → 2025-02-09 | Outpatient (CLI) | payer MEDICARE, SELFPAY ==
[2024-08-05 16:03] VITALS: BMI 22.8
--- NOTE | 2025-02-09 13:07 | ECHOD_ITS ---
Reason For Study Reason For Study: VALVE REPAIRS Procedure This was a 2D Doppler, Color Flow transthoracic echocardiogram. The patient is in an irregular rhythm. The study was technically difficult. Exam performed in department. Left Ventricle Normal LV size. The left ventricular ejection fraction is 50 %. No regional wall motion abnormalities noted. Right Ventricle Normal RV size. Normal systolic function. Atria Normal left atrium. Normal right atrium. Mitral Valve Bileaflet diffuse mitral valve thickening. Mild (1+) eccentric mitral valve insufficiency. Status post mitral valve repair. Tricuspid Valve Normal tricuspid valve. Mild (1+) tricuspid valve insufficiency. Pulmonary artery systolic pressure is 28 mmHg. Aortic Valve Trisinus/trileaflet aortic valve. Moderate focal aortic valve thickening. Mild (1+) eccentric aortic valve insufficiency. Pulmonic Valve Normal pulmonic valve. Mild (1+) pulmonic valve insufficiency. Great Vessels Aortic root repair. The pulmonary artery is normal size. Inferior vena cava collapse with respiration. Pericardium/Pleural Small (<1.0 cm) pericardial effusion. MMode/2D Measurements & Calculations LVIDd: 5.6 cm IVSd: 0.87 cm LVOT diam: 2.1 cm LVIDs: 3.7 cm LVPWd: 0.91 cm LVOT area: 3.5 cm2 RVDd: 3.5 cm FS: 34.1 % Ao root diam: 3.5 cm LAV(MOD-bp): 70.6 ml LVAd ap4: 22.7 cm2 LAV(MOD-bp) Indexed: 38.9 ml/m2 LVLd ap4: 6.8 cm LAV(MOD-sp2): 77.3 ml EDV(MOD-sp4): 62.5 ml LAV(MOD-sp4): 61.6 ml EDV(sp4-el): 64.2 ml LVAs ap4: 14.4 cm2 LVLs ap4: 5.5 cm ESV(MOD-sp4): 31.1 ml ESV(sp4-el): 32.0 ml EF(MOD-sp4): 50.2 % EF(sp4-el): 50.2 % LVAd ap2: 26.6 cm2 SV(MOD-sp4): 31.4 ml LVLd ap2: 7.0 cm EDV(MOD-bp): 72.8 ml SI(MOD-sp4): 17.3 ml/m2 EDV(MOD-sp2): 82.0 ml ESV(MOD-bp): 37.2 ml EDV(sp2-el): 85.4 ml EF(MOD-bp): 48.9 % LVAs ap2: 17.0 cm2 LVLs ap2: 6.0 cm ESV(MOD-sp2): 41.1 ml ESV(sp2-el): 41.2 ml EF(MOD-sp2): 49.9 % SV(MOD-sp2): 40.9 ml SV(sp4-el): 32.2 ml Ao sinus diam: 3.5 cm SI(MOD-sp2): 22.6 ml/m2 Ao ST Junction: 3.1 cm LA A4 area: 21.5 cm2 LA dimension(2D): 5.0 cm RA A4 area: 20.6 cm2 TAPSE: 1.5 cm Time Measurements MV dec time: 0.18 sec Doppler Measurements & Calculations MV E max salvador: 124.7 cm/sec MV V2 max: 152.7 cm/sec Ao V2 max: 175.5 cm/sec MV max P.3 mmHg Ao max P.5 mmHg MV V2 mean: 66.2 cm/sec Ao V2 mean: 126.5 cm/sec MV mean P.5 mmHg Ao mean P.2 mmHg MV V2 VTI: 28.5 cm Ao V2 VTI: 37.1 cm MVA(VTI): 1.3 cm2 AV (velocity ratio): 0.28 CONSTANCE(I,D): 0.97 cm2 CONSTANCE(V,D): 0.99 cm2 LV V1 max: 49.9 cm/sec SV(LVOT): 36.1 ml PA V2 max: 56.7 cm/sec LV V1 max P.99 mmHg LV V1 mean P.54 mmHg LV V1 mean: 34.5 cm/sec LV V1 VTI: 10.3 cm TR max salvador: 250.5 cm/sec TR max P.1 mmHg ECHO/Echo Complete Interpretation Summary Status post mitral valve repair. Normal LV size. The left ventricular ejection fraction is 50 %. Mild (1+) tricuspid valve insufficiency. Pulmonary artery systolic pressure is 28 mmHg. Ordering Physician: Shahzad Fischer Referring Physician: Shahzad Fischer Performed By: Jeff Mireles RDCS
== END | disposition home or self-care (01) ==
LOC: CVS 13:05
PROVIDERS: PCP Family Medicine; Referring Provider Nurse Practitioner Family; Visit Provider Nurse Practitioner Family
DX: I50.31 Acute diastolic (congestive) heart failure (principal); I48.0 Paroxysmal atrial fibrillation; Z98.890 Other specified postprocedural states; Z86.79 Personal history of other diseases of the circulatory system; Z85.828 Personal history of other malignant neoplasm of skin; E78.5 Hyperlipidemia, unspecified
CPT/HCPCS: 93306